=== PATIENT | male | born 1975 | race Hispanic/Latino ===

== ENCOUNTER 2018-01-22 15:21 | Emergency (ER) | payer SELFPAY ==
[2018-01-22] MEDS ORDERED: HYDROCODONE/APAP 10/325 TAB ONE (16:26)
--- NOTE | 2018-01-22 16:33 | RAD REPORT ---
EXAM DESCRIPTION: RAD - Foot Left 3 View - 01/22/2018 4:19 pm CLINICAL HISTORY: Left Foot pain and swelling FINDINGS: Soft tissue ulceration is suspected along the plantar aspect of the forefoot. No acute fracture or dislocation is seen. No acute bony destructive lesion is seen. The first phalanx has been resected. Chronic subluxation involves second and third phalanges
[2018-01-22 16:54] LABS: Absolute Lymphocytes (CBC) 1.6 K/uL (0.7-4.9); Absolute Monocytes 0.6 K/uL (0.1-1.3); Absolute Neutrophil 3.8 K/uL (1.8-8.0); Basophils % 0.7 % (0-1.3); Eosinophils % 1.6 % (0-4.4); Hematocrit 46.4 % (39.6-49.0); Lymphocytes % 26.6 % (15.3-44.8); MCH 32.3 pg (27.0-35.0); MCV 90.3 fL (80-100); MPV 8.7 fL (7.6-11.3); Monocytes % 9.6 % (3.3-12.3); RBC Red Blood Cell Count 5.14 M/uL (4.33-5.43)
[2018-01-22 17:20] LABS: Potassium 4.3 mmol/L (3.5-5.1)
[2018-01-22] MEDS ORDERED: CLINDAMYCIN 600MG/D5W 600 MG/50 ML BAG IV ONE (18:04)
[2018-01-22] MEDS ORDERED: NA CHLORIDE 0.9% 2,000 ML ONE (18:04)
--- NOTE | 2018-01-22 20:24 | ER ---
Nurse's Notes [facility] Name: Ej Jane Age: 43 yrs Sex: Male : 1975 Arrival Date: 01/22/2018 Time: 15:24 Bed 25 Private MD: None, None Diagnosis: Open wound of foot Presentation: 01/22 15:33 Presenting complaint: Patient states: "I've had a left foot wound since like mid-November aa5 but now I think it's getting infected and my left leg is starting to hurt". Transition of care: patient was not received from another setting of care. Onset of symptoms was 2017. Risk Assessment: Do you want to hurt yourself or someone else? Patient reports no desire to harm self or others. Initial Sepsis Screen: Does the patient meet any 2 criteria? No. Patient's initial sepsis screen is negative. Does the patient have a suspected source of infection? No. Patient's initial sepsis screen is negative. Care prior to arrival: None. 15:33 Method Of Arrival: Ambulatory aa5 15:33 Acuity: YOAV 3 aa5 Historical: - Allergies: 15:35 No Known Allergies; aa5 - Home Meds: 15:33 metformin 1,000 mg Oral tab daily [Active]; aa5 - PMHx: 15:33 Diabetes - NIDDM; aa5 - PSHx: 15:33 LEG SURG; aa5 15:33 L Great toe amputation; aa5 - Immunization history:: Adult Immunizations up to date. - Social history:: Smoking status: Patient uses tobacco products, denies chronic smoking, but will smoke occasionally. - Ebola Screening: : No symptoms or risks identified at this time. Screenin:14 Abuse screen: Denies threats or abuse. Denies injuries from another. Nutritional mg2 screening: No deficits noted. Tuberculosis screening: No symptoms or risk factors identified. Fall Risk IV access (20 points). Assessment: 15:45 General: Appears in no apparent distress. comfortable, well groomed, well developed, tl3 well nourished, Behavior is calm, cooperative, appropriate for age. Pain: Complains of pain in left foot and ball of left foot. Neuro: Level of Consciousness is awake, alert, obeys commands, Oriented to person, place, time, situation, Appropriate for age. Cardiovascular: Patient's skin is warm and dry. Respiratory: Airway is patent Respiratory effort is even, unlabored, Respiratory pattern is regular, symmetrical. GI: No signs and/or symptoms were reported involving the gastrointestinal system. : No signs and/or symptoms were reported regarding the genitourinary system. EENT: No signs and/or symptoms were reported regarding the EENT system. Derm: Decubitus located on left foot approximately 1.5 cm to 2.5 cm. 18:00 Reassessment: Patient appears in no apparent distress at this time. No changes from tl3 previously documented assessment. Patient and/or family updated on plan of care and expected duration. Pain level reassessed. Patient is alert, oriented x 3, equal unlabored respirations, skin warm/dry/pink. 19:42 Reassessment: Patient appears in no apparent distress at this time. No changes from tl3 previously documented assessment. Patient and/or family updated on plan of care and expected duration. Pain level reassessed. Patient is alert, oriented x 3, equal unlabored respirations, skin warm/dry/pink. 20:45 Reassessment: Patient appears in no apparent distress at this time. No changes from tl3 previously documented assessment. Patient and/or family updated on plan of care and expected duration. Pain level reassessed. Patient is alert, oriented x 3, equal unlabored respirations, skin warm/dry/pink. Vital Signs: 15:35 BP 128 / 84; Pulse 101; Resp 18 S; Temp 98.2(TE); Pulse Ox 97% on R/A; Weight 99.79 kg aa5 (R); Height 5 ft. 8 in. (172.72 cm) (R); Pain 8/10; 16:45 BP 126 / 80; Pulse 81; Resp 16; Pulse Ox 100% on R/A; tl3 19:45 BP 127 / 85; Pulse 82; Resp 18; Pulse Ox 96% on R/A; tl3 20:45 BP 122 / 81; Pulse 87; Resp 18; Pulse Ox 97% on R/A; tl3 15:35 Body Mass Index 33.45 (99.79 kg, 172.72 cm) aa5 ED Course: 15:24 Patient arrived in ED. mr 15:25 None, None is Private Physician. mr 15:32 Arm band placed on. aa5 15:35 Triage completed. aa5 15:38 Anita Montelongo FNP-C is [facility]. kb 15:38 Demetrio Arenas MD is Attending Physician. kb 16:14 Terri Arboleda, DANIEL is Primary Nurse. tl3 16:18 X-ray completed. Portable x-ray completed in exam room. Patient tolerated procedure az well. 16:20 Foot Left 3 View XRAY In Process Unspecified. EDMS 16:40 Patient has correct armband on for positive identification. Bed in low position. Call tl3 light in reach. Warm blanket given. 16:40 No provider procedures requiring assistance completed. Inserted saline lock: 20 gauge tl3 in left forearm, using aseptic technique. 20:45 IV discontinued, intact, bleeding controlled, No redness/swelling at site. Pressure tl3 dressing applied. Administered Medications: 16:39 Drug: [place] 10 mg-325 mg 1 tabs Route: PO; tl3 18:14 Follow up: Response: No adverse reaction; Marked relief of symptoms mg2 18:14 Drug: Clindamycin 600 mg Route: IVPB; Infused Over: 30 mins; Site: left antecubital; mg2 18:40 Follow up: IV Status: Completed infusion; IV Intake: 50ml tl3 18:46 Drug: NS 0.9% 1000 ml Route: IV; Rate: 1000 ml; Site: left antecubital; Delivery: tl3 Primary tubing; 19:46 Follow up: IV Status: Completed infusion; IV Intake: 1000ml tl3 18:46 Drug: NS 0.9% 1000 ml Route: IV; Rate: 1000 ml; Site: left antecubital; Delivery: tl3 Primary tubing; 19:46 Follow up: IV Status: Completed infusion; IV Intake: 1000ml tl3 Intake: 18:40 IV: 50ml; Total: 50ml. tl3 19:46 IV: 1000ml; Total: 1050ml. tl3 19:46 IV: 1000ml; Total: 2050ml. tl3 Outcome: 20:24 Discharge ordered by . kb 20:45 Discharged to home ambulatory. tl3 20:45 Condition: stable 20:45 Discharge instructions given to patient, Instructed on discharge instructions, follow up and referral plans. medication usage, Demonstrated understanding of instructions, follow-up care, medications, wound care, Prescriptions given X 2. 20:47 Patient left the ED. tl3 Addendum: 01/26/2018 10:00 Addendum: Culture Results: Positive wound culture. Bacteria is resistant to, has s s intermediate sensitivity, or is not tested against prescribed antibiotics. Report given to LEN for further evaluation and then to foster care worker for follow up with patient. Phone call Attempt #1 no answer left VM Certified letter sent to listed address for patient. Signatures: Dispatcher [employer] EDMS Anita Montelongo, LACEYC DIAMOND SORTER-Enedelia Cardenas mr TorresEricka, RN RN aa5 Makenna Thorpe RN RN ss Terri Arboleda, DANIEL RN tl3 Yakov Ibrahim, DANIEL SANCHEZ [facility] [place] Rosales Corrections: (The following items were deleted from the chart) 01/22 15:35 15:35 BP 128 / 84; Pulse 101bpm; Resp 18bpm; Spontaneous; Pulse Ox 97% RA; Temp 98.2F aa5 Temporal; 99.79 kg Reported; Height 5 ft. 8 in. Reported; BMI: 33.4; aa5
--- NOTE | 2018-01-22 20:25 | EDPHYS ---
Physician Documentation [facility] Name: Ej Jane Age: 43 yrs Sex: Male : 1975 Arrival Date: 01/22/2018 Time: 15:24 Bed 25 Private MD: None, None ED Physician Demetrio Arenas HPI: 01/22 16:20 This 43 yrs old Male presents to ER via Ambulatory with complaints of Wound kb Infection. 16:20 The complaints affect the left foot. kb 16:20 The patient presents with an injury, pain, that is acute, open wound. Context: The kb problem was sustained at work, resulted from the patient falling, the patient can fully bear weight, the patient is able to ambulate, without difficulty. Onset: The symptoms/episode began/occurred November 18, 2017. Modifying factors: The symptoms are alleviated by nothing, the symptoms are aggravated by nothing. Associated signs and symptoms: Pertinent positives: open wound to ball of left foot. Severity of symptoms: At their worst the symptoms were mild, moderate, in the emergency department the symptoms are unchanged. The patient has experienced a previous episode. The patient has not recently seen a physician. Historical: - Allergies: 15:35 No Known Allergies; aa5 - Home Meds: 15:33 metformin 1,000 mg Oral tab daily [Active]; aa5 - PMHx: 15:33 Diabetes - NIDDM; aa5 - PSHx: 15:33 LEG SURG; aa5 15:33 L Great toe amputation; aa5 - Immunization history:: Adult Immunizations up to date. - Social history:: Smoking status: Patient uses tobacco products, denies chronic smoking, but will smoke occasionally. - Ebola Screening: : No symptoms or risks identified at this time. ROS: 16:44 Constitutional: Negative for fever, chills, and weight loss, Cardiovascular: Negative kb for chest pain, palpitations, and edema, Respiratory: Negative for shortness of breath, cough, wheezing, and pleuritic chest pain, Abdomen/GI: Negative for abdominal pain, nausea, vomiting, diarrhea, and constipation, MS/Extremity: Negative for injury and deformity, Neuro: Negative for headache, weakness, numbness, tingling, and seizure. 16:44 Skin: Positive for ulceration, of the ball of left foot. Exam: 16:44 Constitutional: This is a well developed, well nourished patient who is awake, alert, kb and in no acute distress. Head/Face: Normocephalic, atraumatic. Chest/axilla: Normal chest wall appearance and motion. Nontender with no deformity. No lesions are appreciated. Cardiovascular: Regular rate and rhythm with a normal S1 and S2. No gallops, murmurs, or rubs. Normal PMI, no JVD. No pulse deficits. Respiratory: Lungs have equal breath sounds bilaterally, clear to auscultation and percussion. No rales, rhonchi or wheezes noted. No increased work of breathing, no retractions or nasal flaring. Abdomen/GI: Soft, non-tender, with normal bowel sounds. No distension or tympany. No guarding or rebound. No evidence of tenderness throughout. MS/ Extremity: Pulses equal, no cyanosis. Neurovascular intact. Full, normal range of motion. Neuro: Awake and alert, GCS 15, oriented to person, place, time, and situation. Cranial nerves II-XII grossly intact. Motor strength 5/5 in all extremities. Sensory grossly intact. Cerebellar exam normal. Normal gait. 16:44 Skin: lesion(s), noted, and can be described as ulcerated, located on the ball of left foot, size of dime. Vital Signs: 15:35 BP 128 / 84; Pulse 101; Resp 18 S; Temp 98.2(TE); Pulse Ox 97% on R/A; Weight 99.79 kg aa5 (R); Height 5 ft. 8 in. (172.72 cm) (R); Pain 8/10; 16:45 BP 126 / 80; Pulse 81; Resp 16; Pulse Ox 100% on R/A; tl3 19:45 BP 127 / 85; Pulse 82; Resp 18; Pulse Ox 96% on R/A; tl3 20:45 BP 122 / 81; Pulse 87; Resp 18; Pulse Ox 97% on R/A; tl3 15:35 Body Mass Index 33.45 (99.79 kg, 172.72 cm) aa5 MDM: 15:38 Patient medically screened. kb 16:45 Data reviewed: vital signs, nurses notes. Data interpreted: Pulse oximetry: on room air kb is 97 %. Interpretation: normal. 20:23 Counseling: I had a detailed discussion with the patient and/or guardian regarding: the kb historical points, exam findings, and any diagnostic results supporting the discharge/admit diagnosis, lab results, radiology results, the need for outpatient follow up, a family practitioner, to return to the emergency department if symptoms worsen or persist or if there are any questions or concerns that arise at home. ED course: Pt has appt with wound care . 01/22 15:47 Order name: CBC with Diff; Complete Time: 17:12 kb 01/22 15:47 Order name: Basic Metabolic Panel; Complete Time: 17:37 kb 01/22 15:47 Order name: Lactate; Complete Time: 17:12 kb 01/22 15:47 Order name: Wound Culture kb 01/22 15:47 Order name: Procalcitonin; Complete Time: 18:42 kb 01/22 17:45 Order name: Blood Culture Adult (2) 01/22 15:47 Order name: Foot Left 3 View XRAY; Complete Time: 16:35 kb 01/22 19:52 Order name: Glucose, Ancillary Testing; Complete Time: 19:53 EDMS 01/22 19:53 Order name: Lactate 01/22 20:22 Order name: Lactate Sepsis 2 HR Follow-up; Complete Time: 20:23 EDMS 01/22 15:47 Order name: IV Start; Complete Time: 16:40 kb Administered Medications: 16:39 Drug: [place] 10 mg-325 mg 1 tabs Route: PO; tl3 18:14 Follow up: Response: No adverse reaction; Marked relief of symptoms mg2 18:14 Drug: Clindamycin 600 mg Route: IVPB; Infused Over: 30 mins; Site: left antecubital; mg2 18:40 Follow up: IV Status: Completed infusion; IV Intake: 50ml tl3 18:46 Drug: NS 0.9% 1000 ml Route: IV; Rate: 1000 ml; Site: left antecubital; Delivery: tl3 Primary tubing; 19:46 Follow up: IV Status: Completed infusion; IV Intake: 1000ml tl3 18:46 Drug: NS 0.9% 1000 ml Route: IV; Rate: 1000 ml; Site: left antecubital; Delivery: tl3 Primary tubing; 19:46 Follow up: IV Status: Completed infusion; IV Intake: 1000ml tl3 Disposition: 01/23 06:57 Co-signature as Attending Physician, Demetrio RAY I agree with the assessment and tereso plan of care. Disposition: 01/22/18 20:24 Discharged to Home. Impression: Open wound of foot. - Condition is Stable. - Discharge Instructions: Wound Infection, [id number], Wound Care. - Prescriptions for Clindamycin HCl 300 mg Oral Capsule - take 1 capsule by ORAL route every 6 hours for 10 days; 40 capsule. Doxycycline Hyclate 100 mg Oral Tablet - take 1 tablet by ORAL route every 12 hours; 20 tablet. - Medication Reconciliation Form, Thank You Letter, Antibiotic Education, Prescription Opioid Use form. - Follow up: Emergency Department; When: As needed; Reason: Worsening of condition. Follow up: Private Physician; When: 2 - 3 days; Reason: Recheck today's complaints, Continuance of care, Re-evaluation by your physician. Signatures: Dispatcher [employer] EDAnita Bennett, DISPENSING LEAD-C DISPENSING LEAD-Ckb Demetrio Arenas MD MD cha Calderon, Audri, RN RN aa5 Terri Arboleda RN RN tl3 Yakov Ibrahim RN RN mg2 Corrections: (The following items were deleted from the chart) 01/22 20:47 20:24 01/22/2018 20:24 Discharged to Home. Impression: Open wound of foot. Condition is tl3 Stable. Forms are Medication Reconciliation Form, Thank You Letter, Antibiotic Education, Prescription Opioid Use. Follow up: Emergency Department; When: As needed; Reason: Worsening of condition. Follow up: Private Physician; When: 2 - 3 days; Reason: Recheck today's complaints, Continuance of care, Re-evaluation by your physician. kb
== END 2018-01-22 20:47 | disposition home or self-care (01) ==
LOC: ER 15:21
DX: S91.302A Unspecified open wound, left foot, initial encounter (principal); E11.9 Type 2 diabetes mellitus without complications; W19.XXXA Unspecified fall, initial encounter; Y93.9 Activity, unspecified; Y92.89 Other specified places as the place of occurrence of the external cause; Y99.8 Other external cause status
CPT/HCPCS: 36415; 80048; 82962; 83605; 84145; 85025; 87040; 87070; 87077; 87186; 87205; 96361; 96365; 99284; J7030

== ENCOUNTER 2018-03-19 19:19 | Inpatient (IN) | payer SELFPAY ==
[2018-03-19] MEDS ORDERED: NA CHLORIDE 0.9% 3,000 ML ONE (21:11)
[2018-03-19] MEDS ORDERED: VANCOMYCIN 1 GM/VIAL ONE (21:12)
[2018-03-19] MEDS ORDERED: NA CHLORIDE 0.9% 250 ML ONE (21:13)
--- NOTE | 2018-03-19 21:25 | RAD REPORT ---
EXAM DESCRIPTION: RAD - Foot Left 3 View - 03/19/2018 9:09 pm CLINICAL HISTORY: Left Foot pain status post fall FINDINGS: No acute fracture or dislocation is seen. . No bony destructive lesion is seen. No significant change since January exam
[2018-03-19 21:52] LABS: Absolute Lymphocytes (CBC) 1.2 K/uL (0.7-4.9); Absolute Neutrophil 5.1 K/uL (1.8-8.0); Basophils % 0.8 % (0-1.3); Eosinophils % 3.7 % (0-4.4); Hematocrit 40.3 % (39.6-49.0); Lymphocytes % 15.7 % (15.3-44.8); MCH 31.4 pg (27.0-35.0); MCV 90.4 fL (80-100); Monocytes % 13.7 % (3.3-12.3); RBC Red Blood Cell Count 4.46 M/uL (4.33-5.43)
[2018-03-19 22:00] LABS: Albumin 3.2 g/dL (3.4-5.0); Bilirubin Direct 0.3 mg/dL (0-0.2); Bilirubin Total 0.9 mg/dL (0.2-1.0); CKMB Creatine Kinase MB 1.1 ng/mL (0.3-3.6); Potassium 3.4 mmol/L (3.5-5.1); Protein, Total 7.4 g/dL (6.4-8.2)
--- NOTE | 2018-03-19 22:45 | EDPHYS ---
Physician Documentation [facility] Name: Ej Jane Age: 43 yrs Sex: Male : 1975 Arrival Date: 03/19/2018 Time: 19:20 Bed 15 Private MD: ED Physician Timoteo Guthrie HPI: 03/19 22:41 This 43 yrs old Male presents to ER via Ambulatory with complaints of Foot snw Pain - ulcer. 22:41 The patient presents with pain, that is acute, swelling, tenderness. The complaints snw affect the dorsum of left foot. Context: The problem was sustained at an unknown site, resulted from an unknown cause, the patient can partially bear weight, the patient is able to ambulate, previous plantar wound. Onset: The symptoms/episode began/occurred gradually, and became worse yesterday. Associated signs and symptoms: Pertinent positives: of the left foot with increased pain and pus drainage from wound. Severity of symptoms: At their worst the symptoms were moderate. The patient has experienced similar episodes in the past. The patient has not recently seen a physician. Historical: - Allergies: 20:05 No Known Allergies; kr2 - Home Meds: 20:05 metformin 1,000 mg Oral tab daily [Active]; kr2 - PMHx: 20:05 Diabetes - NIDDM; kr2 - PSHx: 20:05 Amputation of toes of left foot; knee surgery; kr2 - Immunization history:: Adult Immunizations up to date. - Social history:: Smoking status: Patient uses tobacco products, denies chronic smoking, but will smoke occasionally. - Ebola Screening: : No symptoms or risks identified at this time. ROS: 22:41 Constitutional: Negative for fever, chills, and weight loss, Eyes: Negative for injury, snw pain, redness, and discharge, ENT: Negative for injury, pain, and discharge, Neck: Negative for injury, pain, and swelling, Cardiovascular: Negative for chest pain, palpitations, and edema, Respiratory: Negative for shortness of breath, cough, wheezing, and pleuritic chest pain, Abdomen/GI: Negative for abdominal pain, nausea, vomiting, diarrhea, and constipation, Back: Negative for injury and pain, : Negative for injury, bleeding, discharge, and swelling, Skin: Negative for injury, rash, and discoloration, Neuro: Negative for headache, weakness, numbness, tingling, and seizure. 22:41 MS/extremity: Positive for decreased range of motion, swelling, tenderness, of the left foot. Exam: 22:39 Constitutional: This is a well developed, well nourished patient who is awake, alert, snw and in no acute distress. Head/Face: Normocephalic, atraumatic. Eyes: Pupils equal round and reactive to light, extra-ocular motions intact. Lids and lashes normal. Conjunctiva and sclera are non-icteric and not injected. Cornea within normal limits. Periorbital areas with no swelling, redness, or edema. ENT: Nares patent. No nasal discharge, no septal abnormalities noted. Tympanic membranes are normal and external auditory canals are clear. Oropharynx with no redness, swelling, or masses, exudates, or evidence of obstruction, uvula midline. Mucous membranes moist. Neck: Trachea midline, no thyromegaly or masses palpated, and no cervical lymphadenopathy. Supple, full range of motion without nuchal rigidity, or vertebral point tenderness. No Meningismus. Chest/axilla: Normal chest wall appearance and motion. Nontender with no deformity. No lesions are appreciated. Cardiovascular: Regular rate and rhythm with a normal S1 and S2. No gallops, murmurs, or rubs. Normal PMI, no JVD. No pulse deficits. Respiratory: Lungs have equal breath sounds bilaterally, clear to auscultation and percussion. No rales, rhonchi or wheezes noted. No increased work of breathing, no retractions or nasal flaring. Abdomen/GI: Soft, non-tender, with normal bowel sounds. No distension or tympany. No guarding or rebound. No evidence of tenderness throughout. Back: No spinal tenderness. No costovertebral tenderness. Full range of motion. Neuro: Awake and alert, GCS 15, oriented to person, place, time, and situation. Cranial nerves II-XII grossly intact. Motor strength 5/5 in all extremities. Sensory grossly intact. Cerebellar exam normal. Normal gait. Psych: Awake, alert, with orientation to person, place and time. Behavior, mood, and affect are within normal limits. 22:39 Musculoskeletal/extremity: Extremities: grossly normal except: noted in the ball of left foot: wound ulceration with clear discharge with skin thickening to plantar foot, redness to dorsum of left lesser toes and an area of erythema to anterior chin as well. 22:39 Skin: Appearance: normal except for affected area, cellulitis, that is moderate, on the lateral aspect of left toes and anterior [place]. Vital Signs: 20:06 BP 120 / 90; Pulse 78; Resp 19; Temp 98.5; Pulse Ox 99% on R/A; Weight 99.79 kg; Height kr2 5 ft. 8 in. (172.72 cm); Pain 10; 21:30 BP 114 / 75; Pulse 82; Resp 16 S; Pulse Ox 98% on R/A; cc3 22:15 BP 112 / 74; Pulse 79; Resp 16 S; Pulse Ox 98% on R/A; cc3 23:45 BP 147 / 99; Pulse 80; Resp 15 S; Pulse Ox 97% on R/A; cc3 03/20 00:32 BP 141 / 83; Pulse 83; Resp 17 S; Temp 98.1(O); Pulse Ox 97% on R/A; cc3 01:00 BP 138 / 87; Pulse 82; Resp 18 S; Pulse Ox 97% on R/A; cc3 03/19 20:06 Body Mass Index 33.45 (99.79 kg, 172.72 cm) kr2 MDM: 03/19 20:36 Patient medically screened. cp 22:32 Data reviewed: vital signs, nurses notes. Data interpreted: Pulse oximetry: on room air snw is 99 %. Interpretation: normal. Counseling: I had a detailed discussion with the patient and/or guardian regarding: the historical points, exam findings, and any diagnostic results supporting the discharge/admit diagnosis, the presence of at least one elevated blood pressure reading (>120/80) during this emergency department visit, lab results, radiology results, the need for further work-up and treatment in the hospital. Physician consultation: Nnamdi Holguin MD was called at 22:33, was contacted at 22:32, regarding admission, to the telemetry unit. 03/19 20:56 Order name: Basic Metabolic Panel; Complete Time: 22:04 snw 03/19 20:56 Order name: Blood Culture Adult (2) snw 03/19 20:56 Order name: CBC with Diff; Complete Time: 21:58 snw 03/19 20:56 Order name: Ckmb; Complete Time: 22:04 snw 03/19 20:56 Order name: CPK; Complete Time: 22:04 snw 03/19 20:56 Order name: Lactate; Complete Time: 22:04 snw 03/19 20:56 Order name: LFT's; Complete Time: 22:04 snw 03/19 20:56 Order name: Procalcitonin; Complete Time: 22:19 snw 03/19 20:56 Order name: Foot Left 3 View XRAY; Complete Time: 21:30 snw 03/19 23:42 Order name: Urine Dipstick--Ancillary (enter results) em 03/19 23:51 Order name: Urine Dipstick-Ancillary; Complete Time: 23:56 EDMS 03/19 20:46 Order name: FSBS; Complete Time: 20:49 snw 03/19 20:56 Order name: Cardiac monitoring; Complete Time: 21:42 snw 03/19 20:56 Order name: EKG - Nurse/Tech; Complete Time: 23:44 snw 03/19 20:56 Order name: IV Saline Lock - Large Bore; Complete Time: 21:43 snw 03/19 20:56 Order name: Labs collected and sent; Complete Time: 21:43 snw 03/19 20:56 Order name: O2 Per Protocol; Complete Time: 21:43 snw 03/19 20:56 Order name: O2 Sat Monitoring; Complete Time: 21:43 snw 03/19 20:56 Order name: Urine Dipstick-Ancillary (obtain specimen); Complete Time: 23:44 snw Administered Medications: 21:25 Drug: NS 0.9% (30 ml/kg) 30 ml/kg Route: IV; Rate: bolus; Site: right antecubital; cc3 03/20 00:30 Follow up: Response: No adverse reaction; IV Status: Completed infusion; IV Intake: cc3 2993.7ml 03/19 21:25 Drug: vancoMYCIN 1 grams Route: IVPB; Infused Over: 2 hrs; Site: right antecubital; cc3 23:45 Follow up: Response: No adverse reaction; IV Status: Completed infusion; IV Intake: cc3 250ml 22:55 Drug: fentaNYL (PF) 50 mcg Route: IVP; Site: right antecubital; cc3 23:30 Follow up: Response: No adverse reaction; Pain is decreased cc3 Point of Care Testing: Blood Glucose: 20:52 Blood Glucose: 299 mg/dL; cc3 Ranges: Critical Glucose Levels:Adult <50 mg/dl or >400 mg/dl <40 mg/dl or >180 mg/dl Disposition: 03/20 06:55 Co-signature as Attending Physician, Timoteo Guthrie MD I agree with the assessment and wa plan of care. Disposition: 03/19/18 22:44 Hospitalization ordered by Nnamdi Holguin for Inpatient Admission. Preliminary diagnosis are Personal history of diabetic foot ulcer, Cellulitis and acute lymphangitis of other parts of limb. - Bed requested for Telemetry/MedSurg (Inpatient). - Status is Inpatient Admission. cc3 - Condition is Stable. - Problem is an acute exacerbation. - Symptoms have worsened. UTI on Admission? No Signatures: Dispatcher [employer] EDMS Rebekah Llanos RN RN kl Therrien, Shelly, ORI-C LENS EDGE GRINDER MACHINE-Demetrio Gilmore PA PA cp Appiah, William, MD MD wa Reaves, Karey, RN RN kr2 Jeni Arroyo cc3 Corrections: (The following items were deleted from the chart) 00:41 03/19 22:44 Hospitalization Ordered by Nnamdi Holguin MD for Inpatient Admission. kl Preliminary diagnosis is Personal history of diabetic foot ulcer; Cellulitis and acute lymphangitis of other parts of limb. Bed requested for Telemetry/MedSurg (Inpatient). Status is Inpatient Admission. Condition is Stable. Problem is an acute exacerbation. Symptoms have worsened. UTI on Admission? No. snw 03/20 01:53 00:41 03/19/2018 22:44 Hospitalization Ordered by Nnamdi Holguin MD for Inpatient cc3 Admission. Preliminary diagnosis is Personal history of diabetic foot ulcer; Cellulitis and acute lymphangitis of other parts of limb. Bed requested for Telemetry/MedSurg (Inpatient). Status is Inpatient Admission. Condition is Stable. Problem is an acute exacerbation. Symptoms have worsened. UTI on Admission? No. kl
--- NOTE | 2018-03-19 22:45 | ER ---
Nurse's Notes [facility] Name: Ej Jane Age: 43 yrs Sex: Male : 1975 Arrival Date: 03/19/2018 Time: 19:20 Bed 15 Private MD: Diagnosis: Personal history of diabetic foot ulcer;Cellulitis and acute lymphangitis of other parts of limb Presentation: 03/19 20:02 Presenting complaint: Patient states: I noticed I have what I think is a diabetic ulcer kr2 on the bottom of my left foot and the top is red and swollen. I noticed it 2 days ago and pus has started coming out of it. I have also started having vomiting. Transition of care: patient was not received from another setting of care. Onset of symptoms was March 17, 2018. Risk Assessment: Do you want to hurt yourself or someone else? Patient reports no desire to harm self or others. Initial Sepsis Screen: Does the patient meet any 2 criteria? No. Patient's initial sepsis screen is negative. Does the patient have a suspected source of infection? Yes: Skin breakdown/wound. Care prior to arrival: None. 20:02 Method Of Arrival: Ambulatory kr2 20:02 Acuity: YOAV 3 kr2 Triage Assessment: 20:06 General: Appears in no apparent distress. uncomfortable, Behavior is cooperative, kr2 crying. Pain: Complains of pain in left foot Pain does not radiate. Pain currently is 10 out of 10 on a pain scale. Quality of pain is described as aching, stabbing, tender, Is continuous, Alleviated by rest, Aggravated by weight bearing. Historical: - Allergies: 20:05 No Known Allergies; kr2 - Home Meds: 20:05 metformin 1,000 mg Oral tab daily [Active]; kr2 - PMHx: 20:05 Diabetes - NIDDM; kr2 - PSHx: 20:05 Amputation of toes of left foot; knee surgery; kr2 - Immunization history:: Adult Immunizations up to date. - Social history:: Smoking status: Patient uses tobacco products, denies chronic smoking, but will smoke occasionally. - Ebola Screening: : No symptoms or risks identified at this time. Screenin:15 Abuse screen: Denies threats or abuse. Denies injuries from another. Nutritional cc3 screening: No deficits noted. Tuberculosis screening: No symptoms or risk factors identified. Fall Risk Ambulatory Aid- None/Bed Rest/Nurse Assist (0 pts). Gait- Normal/Bed Rest/Wheelchair (0 pts) Mental Status- Oriented to own ability (0 pts). Assessment: 20:30 Reassessment: Patient appears in no apparent distress at this time. Patient and/or cc3 family updated on plan of care and expected duration. Pain level reassessed. Patient is alert, oriented x 3, equal unlabored respirations, skin warm/dry/pink. 21:20 Reassessment: Patient appears in no apparent distress at this time. Patient and/or cc3 family updated on plan of care and expected duration. Pain level reassessed. Patient is alert, oriented x 3, equal unlabored respirations, skin warm/dry/pink. 22:50 Reassessment: Patient appears in no apparent distress at this time. Patient and/or cc3 family updated on plan of care and expected duration. Pain level reassessed. Patient is alert, oriented x 3, equal unlabored respirations, skin warm/dry/pink. 23:30 Reassessment: Patient appears in no apparent distress at this time. Patient and/or cc3 family updated on plan of care and expected duration. Pain level reassessed. Patient is alert, oriented x 3, equal unlabored respirations, skin warm/dry/pink. Dr. Andersen assessed the patient and plans for admission, waiting for admission orders. Patient denies pain at this time. Patient states feeling better. 03/20 00:25 Reassessment: Patient appears in no apparent distress at this time. Patient and/or cc3 family updated on plan of care and expected duration. Pain level reassessed. Patient is alert, oriented x 3, equal unlabored respirations, skin warm/dry/pink. 01:00 Reassessment: Patient appears in no apparent distress at this time. Patient and/or cc3 family updated on plan of care and expected duration. Pain level reassessed. Patient is alert, oriented x 3, equal unlabored respirations, skin warm/dry/pink. Room available in 228, report handed over to DANIEL Glover for continuity of care. Vital Signs: 03/19 20:06 BP 120 / 90; Pulse 78; Resp 19; Temp 98.5; Pulse Ox 99% on R/A; Weight 99.79 kg; Height kr2 5 ft. 8 in. (172.72 cm); Pain 10/; 21:30 BP 114 / 75; Pulse 82; Resp 16 S; Pulse Ox 98% on R/A; cc3 22:15 BP 112 / 74; Pulse 79; Resp 16 S; Pulse Ox 98% on R/A; cc3 23:45 BP 147 / 99; Pulse 80; Resp 15 S; Pulse Ox 97% on R/A; cc3 03/20 00:32 BP 141 / 83; Pulse 83; Resp 17 S; Temp 98.1(O); Pulse Ox 97% on R/A; cc3 01:00 BP 138 / 87; Pulse 82; Resp 18 S; Pulse Ox 97% on R/A; cc3 03/19 20:06 Body Mass Index 33.45 (99.79 kg, 172.72 cm) kr2 ED Course: 03/19 19:20 Patient arrived in ED. am2 20:04 Triage completed. kr2 20:13 Jeni Arroyo is Primary Nurse. cc3 20:15 Arm band placed on right wrist. cc3 20:15 Patient has correct armband on for positive identification. Placed in gown. Bed in low cc3 position. Call light in reach. Side rails up X 1. rebar worker on. Pulse ox on. NIBP on. 20:35 Demetrio Garcia PA is PHCP. cp 20:35 Timoteo Guthrie MD is Attending Physician. cp 20:45 Zuly East FNP-C is PHCP. snw 20:45 Timoteo Guthrie MD is Attending Physician. snw 21:08 Foot Left 3 View XRAY In Process Unspecified. EDMS 21:25 Inserted saline lock: 20 gauge in right antecubital area, using aseptic technique. cc3 Blood collected. 22:43 Nnamdi Holguin MD is Hospitalizing Provider. snw 03/20 01:00 No provider procedures requiring assistance completed. Patient admitted, IV remains in cc3 place. Administered Medications: 03/19 21:25 Drug: NS 0.9% (30 ml/kg) 30 ml/kg Route: IV; Rate: bolus; Site: right antecubital; cc3 03/20 00:30 Follow up: Response: No adverse reaction; IV Status: Completed infusion; IV Intake: cc3 2993.7ml 03/19 21:25 Drug: vancoMYCIN 1 grams Route: IVPB; Infused Over: 2 hrs; Site: right antecubital; cc3 23:45 Follow up: Response: No adverse reaction; IV Status: Completed infusion; IV Intake: cc3 250ml 22:55 Drug: fentaNYL (PF) 50 mcg Route: IVP; Site: right antecubital; cc3 23:30 Follow up: Response: No adverse reaction; Pain is decreased cc3 Point of Care Testing: Blood Glucose: 20:52 Blood Glucose: 299 mg/dL; cc3 Ranges: Intake: 23:45 IV: 250ml; Total: 250ml. cc3 03/20 00:30 IV: 2994ml; Total: 3244ml. cc3 Outcome: 03/19 22:44 Decision to Hospitalize by Provider. snw 03/20 01:00 Admitted to Med/surg accompanied by nurse, via wheelchair, room 228, with chart, Report cc3 called to DANIEL Glover Condition: stable Instructed on the need for admit, Demonstrated understanding of instructions. 01:53 Patient left the ED. cc3 Signatures: Dispatcher [employer] EDMS Zuly East, ORI-C [employer] PRINC[employer]AL SOLUTION SPECIALIST-Csnw Demetrio Garcia PA PA cp Moreno, Amanda am2 Reaves, Karey, RN RN Jeni Berg cc3 Corrections: (The following items were deleted from the chart) 03/19 19:46 19:44 Presenting complaint: Patient states: I have been having chest pain that started kr2 last night, it feels like a tight squeezing on the left side of my chest kr2 19:46 19:44 Transition of care: patient was not received from another setting of care. [place] [id number] 19:46 19:44 Onset of symptoms was March 18, 2018 [place] [id number] 19:46 19:44 Risk Assessment: Do you want to hurt yourself or someone else? Patient reports no kr2 desire to harm self or others. 2 19:46 19:44 Initial Sepsis Screen: Does the patient meet any 2 criteria? No. Patient's kr2 initial sepsis screen is negative. Does the patient have a suspected source of infection? No. Patient's initial sepsis screen is negative. 2 19:46 19:44 Care prior to arrival: None. kr2 kr2 19:46 19:44 Method Of Arrival: Ambulatory [place] [id number] 19:46 19:44 Acuity: YOAV 3 [place] [id number] 19:56 19:45 Triage completed. [place] [id number] 03/20 01:15 03/19 23:30 Reassessment: Patient appears in no apparent distress at this time. Patient cc3 and/or family updated on plan of care and expected duration. Pain level reassessed. Patient is alert, oriented x 3, equal unlabored respirations, skin warm/dry/pink. Patient denies pain at this time. Patient states feeling better. cc3
[2018-03-19] MEDS ORDERED: FENTANYL CITR 100 MCG/2 ML ONE (23:03)
[2018-03-19 23:51] LABS: Urine Blood NEGATIVE (NEG); Urine Glucose 2+ (NEG); Urine Protein NEGATIVE (NEG); Urine Specific Gravity 1.015 (1.005-1.030)
--- NOTE | 2018-03-20 00:13 | P.HP ---
Certification for Inpatient Patient admitted to: Inpatient With expected LOS: >2 Midnights Practitioner: I am a practitioner with admitting privileges, knowledge of patient current condition, hospital course, and medical plan of care. Services: Services provided to patient in accordance with Admission requirements found in Title 42 Section 412.3 of the Code of Federal Regulations Patient History Date of Service: 03/19/18 Reason for admission: Diabetic ulcer History of Present Illness: Mr Jane is a 43-year-old male with history of non-insulin diabetes mellitus , who start about November of this year with callous in the plantar area of his left foot. Over the time it was getting worse. About 2 months ago, he came to ER for evaluation, and this time he received 1 dose of IV doxycycline and was discharged with oral clindamycin. However the wound did not improve. He has been feeling more pain lately and noted that it was getting more swollen. Today he has had yellowish secretion coming out from the wound. He denied any fever or chills. Lab work remarkable for normal WBC count. X-ray foot showed no signs of osteomyelitis. Allergies No Known Drug Allergies Allergy (Unverified 09/07/14 22:58) Unknown No Known Allergies Allergy (Uncoded 01/10/16 03:06) Unknown - Past Medical/Surgical History -: Diabetes mellitus types 2 -: Toe amputation - Family History Family History: Reviewed- Non-Contributory - Social History Smoking Status: Current some day smoker Counseled patient to stop smoking for: less than 10 minutes Alcohol use: Yes CD- Drugs: No Place of Residence: Home Review of Systems 10-point ROS is otherwise unremarkable Physical Examination - Physical Exam General: Alert, In no apparent distress HEENT: Atraumatic, PERRLA, Mucous membr. moist/pink, EOMI, Sclerae nonicteric Neck: Supple, 2+ carotid pulse no bruit, No LAD, Without JVD or thyroid abnormality Respiratory: Clear to auscultation bilaterally, Normal air movement Cardiovascular: Regular rate/rhythm, Normal S1 S2 Gastrointestinal: Normal bowel sounds, No tenderness Musculoskeletal: No tenderness Integumentary: Skin breakdown, Diabetic ulcer (Left foot plantar area) Neurological: Normal speech, Normal strength at 5/5 x4 extr, Normal tone, Normal affect Lymphatics: No axilla or inguinal lymphadenopathy - Studies Laboratory Data (last 24 hrs) 03/19/18 21:25: WBC 7.6, Hgb 14.0, Hct 40.3, Plt Count 230 03/19/18 21:25: Sodium 134 L, Potassium 3.4 L, BUN 22 H, Creatinine 1.10, Glucose 307 H, Total Bilirubin 0.9, AST 11 L, ALT 26, Alkaline Phosphatase 74 Assessment and Plan - Problems (Diagnosis) (1) Diabetes with ulcer of foot Current Visit: Yes Status: Acute Qualifiers: Diabetes mellitus type: type 2 Diabetes mellitus halfway insulin use: without cotton dispatcher use Qualified Code(s): E11.621 - Type 2 diabetes mellitus with foot ulcer; L97.509 - Non-pressure chronic ulcer of other part of unspecified foot with unspecified severity (2) Diabetes mellitus Current Visit: Yes Status: Acute Qualifiers: Diabetes mellitus type: type 2 Diabetes mellitus cotton dispatcher insulin use: without halfway use Diabetes mellitus complication status: with unspecified complications Qualified Code(s): E11.8 - Type 2 diabetes mellitus with unspecified complications - Plan Patient will be admitted to the hospital due to diabetic wound infection. Will order empiric antibiotic treatment with vancomycin and Zosyn. Will consult surgery team for evaluation recommendation. Also consult wound care team for local care. Will check inflammatory markers and eventually ordered MRI of the foot to rule out osteomyelitis. - Advance Directives Does patient have a Living Will: No Does patient have a Durable POA for Healthcare: No - Code Status/Comfort Care Code Status Assessed: Yes Code Status: Full Code
[2018-03-20] MEDS ORDERED: ACETAMINOPHEN 500 MG TAB PO PRN (01:11)
[2018-03-20] MEDS ORDERED: ONDANSETRON 4 MG/2 ML VIAL IV PRN (01:11)
[2018-03-20] MEDS: NA CHLORIDE 0.9% 1,000 ML IV SCH ×3 (02:23→21:11)
[2018-03-20 02:35] VITALS: BMI 32.2
[2018-03-20 02:42] LABS: Urine Appearance CLEAR; Urine Bilirubin NEGATIVE (NEG); Urine Blood NEGATIVE (NEG); Urine Color YELLOW; Urine Glucose 3+ (NEG); Urine Protein TRACE (NEG); Urine Specific Gravity 1.025 (1.005-1.030)
[2018-03-20] MEDS ORDERED: TRAMADOL HCL 50 MG TAB PO PRN ×2 (02:55→11:23)
[2018-03-20 03:00] LABS: Urine Microscopic Reflex NO UMIC
[2018-03-20] MEDS ORDERED: VANCOMYCIN 1 GM in NA CHLORIDE 0.9% 250 ML IVPB ONE (04:00)
[2018-03-20] MEDS ORDERED: PIPER/TAZO/NS 3.375gm 3.375 GM/100 ML BAG ONE (04:08)
[2018-03-20] MEDS ORDERED: VANCOMYCIN 1 GM/250 ML BAG ONE (04:09)
[2018-03-20] MEDS: INSULIN -REGULAR HUMAN 50 UNIT/0.5 ML ML SQ SCH ×3 (06:00→18:00)
[2018-03-20] MEDS ORDERED: PIPER/TAZO/NS 3.375gm 3.375 GM/100 ML BAG IVPB SCH (06:00)
[2018-03-20 06:07] LABS: Absolute Lymphocytes (CBC) 1.6 K/uL (0.7-4.9); Absolute Monocytes 0.9 K/uL (0.1-1.3); Absolute Neutrophil 3.5 K/uL (1.8-8.0); Basophils % 0.6 % (0-1.3); Eosinophils % 4.8 % (0-4.4); Hematocrit 35.9 % (39.6-49.0); MCH 31.9 pg (27.0-35.0); MPV 8.1 fL (7.6-11.3); Monocytes % 14.4 % (3.3-12.3); RBC Red Blood Cell Count 4.04 M/uL (4.33-5.43)
[2018-03-20 06:09] LABS: BUN Blood Urea Nitrogen 16 mg/dL (7-18); Bicarbonate 27 mmol/L (21-32); Glucose Level 135 mg/dL (74-106); Potassium 3.5 mmol/L (3.5-5.1); Sodium Level 138 mmol/L (136-145)
[2018-03-20] MEDS ORDERED: POTASSIUM CL SA 10 MEQ TAB PO ONE (06:18)
[2018-03-20] MEDS ORDERED: INFLUENZA VACCINE (for 3y+) 0.5 ML DOSE IMVAC ONE (08:00)
[2018-03-20] MEDS ORDERED: VANCOMYCIN 1 GM in NA CHLORIDE 0.9% 500 ML IVPB SCH (09:00)
[2018-03-20] MEDS: PIPER/TAZO/NS 3.375gm 3.375 GM/100 ML BAG IVPB SCH ×2 (10:18→17:00)
[2018-03-20] MEDS: HYDROCODONE/APAP 7.5/325 MG TAB PO PRN ×2 (11:40→18:47)
--- NOTE | 2018-03-20 15:34 | P.PN ---
Subjective Date of Service: 03/20/18 Primary Care Provider: None; [facility] Chief Complaint: Diabetic ulcer Subjective: Improving Physical Examination - Vital Signs Temperature: 97.0 F Blood Pressure: 123/81 Pulse: 75 Respirations: 17 Pulse Ox (%): 98 - Physical Exam General: Alert, In no apparent distress, Oriented x3, Cooperative HEENT: Atraumatic Neck: Supple Respiratory: Clear to auscultation bilaterally, Normal air movement Cardiovascular: Normal pulses, Regular rate/rhythm Gastrointestinal: Normal bowel sounds, Soft and benign, Non-distended, No tenderness, No masses, No rebound, No guarding Integumentary: Other (Left foot ulcer. No exudate noted.) - Studies Laboratory Data (last 24 hrs) 03/19/18 21:25: WBC 7.6, Hgb 14.0, Hct 40.3, Plt Count 230 03/19/18 21:25: Sodium 134 L, Potassium 3.4 L, BUN 22 H, Creatinine 1.10, Glucose 307 H, Total Bilirubin 0.9, AST 11 L, ALT 26, Alkaline Phosphatase 74 Assessment & Plan Discharge Plan: Home Plan to discharge in: 48 Hours Physician Review Additional Text: Impression: Diabetic left foot ulcer with cellulitis with history of left great toe amputation Diabetes mellitus type 2, non-insulin dependent Obesity, BMI 32 Plan: Diabetic left foot ulcer with cellulitis with history of left great toe amputation: Will continue with IV antibiotic therapy. No osteomyelitis identified. Continue with wound care. Spoke with surgery. Will keep the patient NPO after midnight as the patient may require debridement tomorrow. Diabetes mellitus type 2, non-insulin dependent: Continue with sliding scale. Will monitor closely. Obesity, BMI 32: Continue with lifestyle modification education. Time Spent Managing Pts Care (In Minutes): 55
[2018-03-20] MEDS: VANCOMYCIN 1.75 GM in NA CHLORIDE 0.9% 500 ML IVPB SCH (17:00)
[2018-03-20] MEDS: METFORMIN HCL 500 MG TAB PO SCH (17:01)
[2018-03-20] MEDS ORDERED: HOME MED 1 EA UNK (Metformin Hcl [Glucophage] 1,000 MG) PO SCH (21:00)
--- NOTE | 2018-03-20 21:16 | CON ---
Date of Consultation: 03/20/2018 Diagnoses: Left foot cellulitis, infected diabetic ulcer. History Of Present Illness: This is the case of a 43-year-old patient having diabetes for the last 5 years, found to have a lump and a callus on the left foot plantar region several months ago. This d eveloped into an area of an ulcer with a foul smelling and cellulitis present over that area. He rodriguez s not recall any trauma. He does not have diabetic shoes. He say he take some p.o. medication. Past Medical History: [id number] diabetes mellitus. Surgeries: Include toes amputation. Allergies: NONE. Social History: He is smokes. He was advised and consulted to stop smoking. He drinks alcohol just occasionally. Review of Systems: Ten points otherwise unremarkable. Physical Examination: General: The patient is awake and alert. HEENT: Pupils are equal and reactive, anicteric. Neck: Supple. Chest: Clear. Heart: S1, S2. Abdomen: Soft and depressible. No guarding, rebound, or peritoneal signs. Musculoskeletal: Over the left foot plantar region the patient has an infected diabetic ulcer. It i s about 4 x 4 cm in size with the undermining present, . No crepitus. Dorsalis pedis puls es still bilateral present with no cyanosis of the toe. Still have sensations of the bilateral foot. Laboratory Data: Blood work shows WBC count of 6.3 with hemoglobin of 12.9, glucose 135. Left foot x-ray interpreted by Dr. Joseph as no acute fracture or dislocation. Assessment: This is a 43-year-old patient with an infected diabetic ulcer on the left foot. The pat ient needs debridement with benefits, alternatives, and risks including, but not limited to infection , bleeding, damage to adjacent structures, anesthesia complication, nonhealing wound, KS, and even de ath. He also understands the importance of and he was counseled about stop smoking, diabetic shoes, diabetes control, diet change, weight loss. He understands. He will require wound care. HM/MODL Voice ID: [id number] Report ID: [id number]
--- NOTE | 2018-03-20 22:12 | EKG ---
Test Date: 2018-03-19 Test Time: 23:10:49 Precipitation Equipment Tender: FABIÁN MEASUREMENT RESULTS: Intervals: Rate: 81 WA: 142 QRSD: 94 QT: 376 QTc: 436 [place]: P: 12 WA: 142 QRS: 2 T: 13 INTERPRETIVE STATEMENTS: Normal sinus rhythm Normal ECG No previous ECG available for comparison Electronically Signed On 03-20-18 22:11:32 CDT by Shaq Sam
[2018-03-21] MEDS: PIPER/TAZO/NS 3.375gm 3.375 GM/100 ML BAG IVPB SCH ×2 (00:12→09:34)
[2018-03-21] MEDS: VANCOMYCIN 1.75 GM in NA CHLORIDE 0.9% 500 ML IVPB SCH (04:05)
[2018-03-21] MEDS: NA CHLORIDE 0.9% 1,000 ML IV SCH (04:23)
[2018-03-21] MEDS: INSULIN -REGULAR HUMAN 50 UNIT/0.5 ML ML SQ SCH ×2 (06:00)
[2018-03-21 06:38] LABS: Absolute Lymphocytes (CBC) 1.8 K/uL (0.7-4.9); Absolute Monocytes 0.9 K/uL (0.1-1.3); Absolute Neutrophil 3.7 K/uL (1.8-8.0); Basophils % 0.9 % (0-1.3); Eosinophils % 5.7 % (0-4.4); Hematocrit 41.1 % (39.6-49.0); Lymphocytes % 26.5 % (15.3-44.8); MCH 32.1 pg (27.0-35.0); MCV 89.3 fL (80-100); MPV 7.6 fL (7.6-11.3); Monocytes % 12.6 % (3.3-12.3)
[2018-03-21 06:52] LABS: BUN Blood Urea Nitrogen 10 mg/dL (7-18); Bicarbonate 31 mmol/L (21-32); Glucose Level 123 mg/dL (74-106); Magnesium 1.7 mg/dL (1.8-2.4); Potassium 4.5 mmol/L (3.5-5.1); Sodium Level 139 mmol/L (136-145)
[2018-03-21] MEDS ORDERED: PROPOFOL 200 MG/20 ML VIAL IV ONE (07:01)
[2018-03-21] MEDS ORDERED: FENTANYL CITR 250 MCG/5 ML ONE (07:01)
[2018-03-21] MEDS ORDERED: LIDOCAINE 1% MPF 2 ML AMPULE ONE (07:02)
[2018-03-21] MEDS ORDERED: ONDANSETRON HCL 40 MG/20 ML VIAL ONE (07:02)
[2018-03-21] MEDS ORDERED: MIDAZOLAM HCL 2 MG/2 ML INJ ONE (07:05)
[2018-03-21] MEDS ORDERED: BUPIVACA 0.5%/EPI 0.0005%/PF 30 ML VIAL ONE (07:19)
[2018-03-21] MEDS: METFORMIN HCL 500 MG TAB PO SCH (08:00)
--- NOTE | 2018-03-21 08:16 | P.BOP ---
Preoperative diagnosis: left foot necrotic infected diabetic ulcer Postoperative diagnosis: same Primary procedure: Excisional debridement of left foot necrotic infected diabetic ulcer 4x4cm Estimated blood loss: <5cc Specimen: culture Findings: see dictation Anesthesia: General Complications: None Transferred to: Recovery Room Condition: Good
[2018-03-21] MEDS ORDERED: EPHEDRINE SULF 50 MG/10 ML SYR ONE (08:19)
[2018-03-21 08:46] VITALS: BP 141/85; TEMP 97.4; O2SAT 99
--- NOTE | 2018-03-21 08:59 | P.DS ---
Admission Date: 03/19/18 Discharge Date: 03/21/18 Primary Care Provider: None; Podiatry-Kt Walden Disposition: ROUTINE DISCHARGE Discharge Condition: GOOD Reason for Admission: Diabetic ulcer Consultations: Surgery-Dr. Rojo Procedures: Xray: CLINICAL HISTORY: Left Foot pain status post fall FINDINGS: No acute fracture or dislocation is seen.. No bony destructive lesion is seen. No significant change since January exam Surgery: Excisional debridement of left foot necrotic ulcer, 4 x 4 cm Medical Problem List: Diabetic left necrotic foot ulcer with cellulitis with history of left great toe amputation, status post excisional debridement of ulcer Diabetes mellitus type 2, non-insulin dependent, uncontrolled-A1c 8.4 Hypertension Obesity, BMI 32 Brief History of Present Illness: 43-year-old male presented emergency room with pain, swelling and ulcer to the left foot. This all started about 4 months ago when he developed a callus. He was seen in the ER about 1-2 months ago. He was given antibiotic therapy at that time. This had not improved. In the ER he was evaluated. Patient was admitted for further treatment. Hospital Course: Patient found to have left diabetic necrotic foot ulcer with cellulitis. Patient has history of left great toe amputation. Patient was seen and evaluated by surgery. X-ray shows no evidence of osteomyelitis. White count remained within normal range. Pro calcitonin negative. Patient had excisional debridement of the ulcer by surgery. At discharge patient will continue with wound care including wet to dry dressings with normal saline daily. Patient will be sent home on Bactrim DS 1 pill twice daily and doxycycline 100 mg 1 pill twice daily for 10 days. Patient will [facility] of next week to continue his care. Patient will be provided a surgical shoe. He is to limit weight-bearing to the lower extremity. Patient will be provided crutches to help with this if needed. Better diabetic control is recommended. At discharge he will also be given a limited supply of tramadol 50 mg 1 pill 3 times a day as needed for pain. Patient will be started on Neurontin 100 mg 1 pill twice daily as needed for neuropathic pain. Patient has diabetes type 2, non insulin dependent. A1c 8.4. Patient needs better control. At discharge he will continue with metformin 1000 mg 1 pill twice daily. Glimepiride 1 mg once daily also added. Patient will need to continue with a diabetic controlled diet. Recommendation is to maintain blood sugars less than 140 fasting and less than 200 after meals. Further adjustment can be done by his PCP. Patient to establish care with a PCP in the area so that better control of diabetes can be obtained. Patient had mild elevation in blood pressure. Patient likely has underlying hypertension. Patient will be started on low-dose BVI-czmchkxjl-aeyzbsywiv 2.5 mg 1 pill daily. Recommendation is to maintain blood pressures less 150/80. Patient will also be started on aspirin 81 mg daily. Further adjustment can be done by his PCP. Patient with obesity. BMI 32. Recommendation to continue with lifestyle modification education. Vital Signs/Physical Exam: Temp Pulse Resp BP Pulse Ox 97.4 F 87 16 141/85 H 97 03/21/18 08:40 03/21/18 08:40 03/21/18 08:40 03/21/18 08:40 03/21/18 04:00 General: Alert, In no apparent distress, Oriented x3, Cooperative HEENT: Atraumatic, Mucous membr. moist/pink Neck: Supple Respiratory: Clear to auscultation bilaterally, Normal air movement Cardiovascular: Normal pulses, Regular rate/rhythm Gastrointestinal: Normal bowel sounds, Soft and benign, Non-distended, No tenderness, No masses, No rebound, No guarding Musculoskeletal: No tenderness, No warmth Integumentary: Other (Left foot bandaged.) Neurological: Normal speech, Normal strength at 5/5 x4 extr, Normal tone, Normal affect Laboratory Data at Discharge: WBC 6.8 K/uL (4.3-10.9) 03/21/18 06:09 Hgb 14.8 g/dL (13.6-17.9) 03/21/18 06:09 Hct 41.1 % (39.6-49.0) 03/21/18 06:09 Plt Count 284 K/uL (152-406) D 03/21/18 06:09 Sodium 139 mmol/L (136-145) 03/21/18 06:09 Potassium 4.5 mmol/L (3.5-5.1) 03/21/18 06:09 BUN 10 mg/dL (7-18) 03/21/18 06:09 Creatinine 0.90 mg/dL (0.55-1.3) 03/21/18 06:09 Glucose 123 mg/dL (74-106) H 03/21/18 06:09 Magnesium 1.7 mg/dL (1.8-2.4) L 03/21/18 06:09 Total Bilirubin 0.9 mg/dL (0.2-1.0) 03/19/18 21:25 AST 11 U/L (15-37) L 03/19/18 21:25 ALT 26 U/L (12-78) 03/19/18 21:25 Alkaline Phosphatase 74 U/L (45-117) 03/19/18 21:25 Home Medications: Aspirin [Aspirin EC 81 MG] 81 mg PO DAILY #90 tablet. 03/21/18 Doxycycline Hyclate 100 mg PO BID #20 tablet 03/21/18 Gabapentin [Neurontin*] 100 mg PO BID PRN #30 cap 03/21/18 Glimepiride 1 mg PO DAILY #30 tablet 03/21/18 Lisinopril [Zestril] 2.5 mg PO DAILY #30 tablet 03/21/18 Metformin HCl [Glucophage] 1,000 mg PO BID #60 tablet 03/21/18 Sulfamethoxazole/Trimethoprim [Bactrim Ds Tablet] 1 each PO BID #20 tablet 03/21 traMADol HCL [Ultram*] 50 mg PO TID PRN #15 tab 03/21/18 New Medications: Aspirin [Aspirin EC 81 MG] 81 mg PO DAILY #90 tablet. Doxycycline Hyclate 100 mg PO BID #20 tablet Gabapentin [Neurontin*] 100 mg PO BID PRN #30 cap PRN Reason: Pain Glimepiride 1 mg PO DAILY #30 tablet Lisinopril [Zestril] 2.5 mg PO DAILY #30 tablet Metformin HCl [Glucophage] 1,000 mg PO BID #60 tablet Sulfamethoxazole/Trimethoprim [Bactrim Ds Tablet] 1 each PO BID #20 tablet traMADol HCL [Ultram*] 50 mg PO TID PRN #15 tab PRN Reason: Pain Patient Discharge Instructions: 1. Patient will need to establish care with a PCP to follow up this hospitalization and continue his care. 2. Patient found to have left diabetic necrotic foot ulcer with cellulitis. Patient has history of left great toe amputation. Patient was seen and evaluated by surgery. X- ray shows no evidence of osteomyelitis. White count remained within normal range. Pro calcitonin negative. Patient had excisional debridement of the ulcer by surgery. At discharge patient will continue with wound care including wet to dry dressings with normal saline daily. Patient will be sent home on Bactrim DS 1 pill twice daily and doxycycline 100 mg 1 pill twice daily for 10 days. Patient will follow up with [facility] of next week to continue his care. Patient will be provided a surgical shoe. He is to limit weight-bearing to the lower extremity. Patient will be provided crutches to help with this if needed. Better diabetic control is recommended. At discharge he will also be given a limited supply of tramadol 50 mg 1 pill 3 times a day as needed for pain. Patient will be started on Neurontin 100 mg 1 pill twice daily as needed for neuropathic pain. 3. Patient has diabetes type 2, non insulin dependent. A1c 8.4. Patient needs better control. At discharge he will continue with metformin 1000 mg 1 pill twice daily. Glimepiride 1 mg once daily also added. Patient will need to continue with a diabetic controlled diet. Recommendation is to maintain blood sugars less than 140 fasting and less than 200 after meals. Further adjustment can be done by his PCP. Patient to establish care with a PCP in the area so that better control of diabetes can be obtained. 4. Patient had mild elevation in blood pressure. Patient likely has underlying hypertension. Patient will be started on low-dose OJH-pfetpyvdw-mysrjdtxnl 2.5 mg 1 pill daily. Recommendation is to maintain blood pressures less 150/80. Patient will also be started on aspirin 81 mg daily. Further adjustment can be done by his PCP. 5. Patient with obesity. BMI 32. Recommendation to continue with lifestyle modification education. Diet: ADA Activity: Touch-down Time spent managing pt's care (in minutes): 55
[2018-03-21] MEDS: HYDROCODONE/APAP 7.5/325 MG TAB PO PRN (09:55)
--- NOTE | 2018-03-21 13:18 | OP ---
Date of Procedure: 03/21/2018 Surgeon: Phan Rojo MD Preoperative Diagnosis: Necrotic diabetic ulcer, left foot. Postoperative Diagnosis: Necrotic diabetic ulcer, left foot. Procedure: Excisional debridement of the necrotic left foot infected diabetic ulcer, 4 x 4 cm. Anesthesia: General plus local. Indications For Procedure: This is the case of a 43-year-old patient, who comes to us with above elsa gnosis. Fully explained the benefits, alternatives, and risks of the excisional debridement, which i nclude but are not limited to infection, bleeding, damage to adjacent structures, anesthesia complica tion, nonhealing wound, NM, and even . He also understands this may not relieve any symptoms. He might need more than one surgical intervention. He understood, signed a consent. He also underst ands the importance of diabetes control, off-loading diabetic shoes, wound care, and compliance with the primary doctor medications for antibiotics. He understood. Procedure In Detail: The patient was brought to the operating room, placed in supine position. A ti me-out was called. The left foot was prepped and draped in a sterile fashion. Using a sharp knife a nd 11-blade, we proceeded to do sharp debridement of the necrotic ulcer. It is about 4 x 4 [address] It g oes all the way down to muscle. The area was irrigated. Loculations were explored and opened. Necr otic tissue was removed. Cultures were obtained. Then, we proceeded to pack the area with Nu Gauze quarter of an inch. The patient tolerated the procedure well. The patient was sent to Recovery in stable condition. Sponge count and instrument count were correct. JAKE/МАРИЯ Voice ID: [id number] Report ID: [id number]
== END 2018-03-21 11:19 | disposition home or self-care (01) | DRG 982 ==
LOC: ER 19:19 → ERHOLD 23:02 → 2ND 03-20 01:32
PROVIDERS: ADMIT Internal Medicine; ATTEND Family Medicine
PROC: 0KBW3ZZ Excision of Left Foot Muscle, Percutaneous Approach (ICD-10-PCS; principal; 2018-03-21 07:30)
DX: E11.621 Type 2 diabetes mellitus with foot ulcer (principal); L03.116 Cellulitis of left lower limb; L97.523 Non-pressure chronic ulcer of other part of left foot with necrosis of muscle; E11.65 Type 2 diabetes mellitus with hyperglycemia; E11.628 Type 2 diabetes mellitus with other skin complications; Z79.84 Long term (current) use of oral hypoglycemic drugs; I10 Essential (primary) hypertension; E66.9 Obesity, unspecified; Z68.32 Body mass index [BMI] 32.0-32.9, adult; F17.210 Nicotine dependence, cigarettes, uncomplicated; Z89.412 Acquired absence of left great toe
CPT/HCPCS: 36415; 80048; 80076; 81003; 82550; 82553; 82962; 83036; 83605; 83735; 84145; 85025; 85652; 86140; 87040; 87070; 87075; 87077; 87186; 87205; 88304; 93005; 96365; 96366; 96368; 96375; 99285; J2001; J2250; J2405; J2543; J2704; J3010; J3370; J7030

== ENCOUNTER 2018-04-22 11:05 | Inpatient (IN) | payer SELFPAY ==
--- NOTE | 2018-04-22 11:43 | RAD REPORT ---
EXAM DESCRIPTION: RAD - Chest Single View - 04/22/2018 11:38 am CLINICAL HISTORY: Preop chest examination, left foot wound debridement pending COMPARISON: None. TECHNIQUE: AP portable chest image was obtained 1129 hours . FINDINGS: Lungs are clear. Heart and vasculature are normal. No measurable pleural effusion and no p neumothorax. No acute bony abnormality seen. No acute aortic findings suspected. IMPRESSION: No acute cardiopulmonary process.
--- NOTE | 2018-04-22 11:51 | RAD REPORT ---
EXAM DESCRIPTION: RAD - Foot Left 3 View - 04/22/2018 11:38 am CLINICAL HISTORY: Soft tissue swelling, open wound on the foot COMPARISON: Left foot March 19, 2018, left foot January 2018 FINDINGS: First toe has been resected. No acute finding in the first metatarsal head. The second- fi fth metatarsals are also without an acute or destructive component. There is bone loss along the base of the second proximal phalanx with medial subluxation of the second proximal phalanx relative to th e second metatarsal head. This is a stable pattern. Destruction of bone at this site is not suspected . Second distal phalanx is absent. Bone loss changes are present in the third proximal phalanx. This appears to have progressed since Oc . No air or foreign body in the soft tissues. IMPRESSION: Bone loss in the third proximal phalanx has progressed from March 19 imaging and is emery spicious for active osteomyelitis. Bone loss at the base of the second proximal phalanx with medial subluxation appears chronic. No acti ve bone loss at this site. No air or foreign body seen in the soft tissues.
[2018-04-22 12:01] LABS: Absolute Lymphocytes (CBC) 1.3 K/uL (0.7-4.9); Absolute Monocytes 1.3 K/uL (0.1-1.3); Absolute Neutrophil 6.8 K/uL (1.8-8.0); Basophils % 0.7 % (0-1.3); Eosinophils % 2.7 % (0-4.4); Hematocrit 38.9 % (39.6-49.0); Lymphocytes % 13.4 % (15.3-44.8); MCV 89.2 fL (80-100); MPV 7.6 fL (7.6-11.3); Monocytes % 13.4 % (3.3-12.3); RBC Red Blood Cell Count 4.36 M/uL (4.33-5.43)
[2018-04-22] MEDS ORDERED: ONDANSETRON 4 MG/2 ML VIAL ONE (12:02)
[2018-04-22] MEDS ORDERED: PIPER/TAZO/NS 3.375gm 3.375 GM/100 ML BAG ONE (12:02)
[2018-04-22] MEDS ORDERED: VANCOMYCIN 1 GM/250 ML BAG ONE (12:02)
[2018-04-22] MEDS ORDERED: MORPHINE 4 MG/ML SYR ONE (12:02)
[2018-04-22] MEDS ORDERED: NA CHLORIDE 0.9% 1,000 ML ONE (12:02)
--- NOTE | 2018-04-22 12:11 | ER ---
Nurse's Notes [facility] Name: Ej Jane Age: 43 yrs Sex: Male : 1975 Arrival Date: 04/22/2018 Time: 11:08 Bed 17 Private MD: Diagnosis: Cellulitis and acute lymphangitis of other parts of limb-left foot and lower extremity;Type 1 diabetes mellitus;Osteomyelitis-left foot Presentation: 04/22 11:25 Presenting complaint: Patient states: SENT FROM DR CAMARENA FOR ADMIT 2/2 LEFT FOOT bp WOUND. Transition of care: patient was not received from another setting of care. Onset of symptoms is unknown. Risk Assessment: Do you want to hurt yourself or someone else? Patient reports no desire to harm self or others. Initial Sepsis Screen: Does the patient meet any 2 criteria? No. Patient's initial sepsis screen is negative. Does the patient have a suspected source of infection? No. Patient's initial sepsis screen is negative. Care prior to arrival: None. 11:25 Method Of Arrival: Wheelchair bp 11:25 Acuity: YOAV 3 bp Triage Assessment: 11:26 General: Appears in no apparent distress. uncomfortable, Behavior is calm, cooperative, bp appropriate for age. Pain: Complains of pain in left foot. EENT: No deficits noted. Neuro: Level of Consciousness is awake, alert, obeys commands, Oriented to person, place, time, situation, Appropriate for age. Cardiovascular: No deficits noted. Respiratory: Airway is patent Respiratory effort is even, unlabored, Respiratory pattern is regular, symmetrical. GI: No signs and/or symptoms were reported involving the gastrointestinal system. : No signs and/or symptoms were reported regarding the genitourinary system. Derm: Wound noted left foot. Musculoskeletal: Circulation, motion, and sensation intact. Range of motion: intact in all extremities, Swelling present in left foot. Historical: - Allergies: 11: No Known Allergies; bp - Home Meds: : metformin 1,000 mg Oral tab 2 times per day [Active]; bp - PMHx: 11: Diabetes - NIDDM; bp - PSHx: 11:26 LEFT GREAT TOE AMPUTATION; bp - Immunization history:: Adult Immunizations up to date. - Social history:: Smoking status: Patient/guardian denies using tobacco. - Ebola Screening: : Patient negative for fever greater than or equal to 101.5 degrees Fahrenheit, and additional compatible Ebola Virus Disease symptoms Patient denies exposure to infectious person Patient denies travel to an Ebola-affected area in the 21 days before illness onset No symptoms or risks identified at this time. Screenin:28 Abuse screen: Denies threats or abuse. Denies injuries from another. Nutritional bp screening: No deficits noted. Tuberculosis screening: No symptoms or risk factors identified. Fall Risk None identified. Assessment: 11:28 General: SEE TRIAGE NOTE. bp Vital Signs: 11:26 BP 116 / 80; Pulse 93; Resp 20; Temp 98; Pulse Ox 99% ; Weight 95.71 kg; Height 5 ft. 8 bp in. (172.72 cm); 12:30 BP 113 / 79; Pulse 90; Resp 14; Pulse Ox 99% ; bp 13:30 BP 117 / 66; Pulse 87; Resp 14; Pulse Ox 100% ; bp 14:30 BP 127 / 81; Pulse 83; Resp 16; Pulse Ox 100% ; bp 11:26 Body Mass Index 32.08 (95.71 kg, 172.72 cm) bp ED Course: 11:08 Patient arrived in ED. tw3 11:15 Doyle George, DANIEL is Primary Nurse. bp 11:16 Demetrio Arenas MD is Attending Physician. tereso 11:26 Triage completed. bp 11:26 Arm band placed on. bp 11:28 Patient has correct armband on for positive identification. Placed in gown. Bed in low bp position. Call light in reach. Side rails up X2. 11:33 X-ray completed. Portable x-ray completed in exam room. Patient tolerated procedure ka well. 11:37 XRAY Chest (1 view) In Process Unspecified. EDMS 11:37 Foot Left 3 View In Process Unspecified. EDMS 11:40 Inserted saline lock: 18 gauge in right antecubital area, using aseptic technique. bp Blood collected. 11:40 EKG done, by qc lab technician. reviewed by Demetrio Arenas MD. vh 12:09 Robert Loja MD is Hospitalizing Provider. tereso Administered Medications: 11:40 Drug: NS 0.9% 1000 ml Route: IV; Rate: 125 ml/hr; Site: right antecubital; bp 11:40 Drug: Zosyn 3.375 grams Route: IVPB; Infused Over: 60 mins; Site: right antecubital; bp 12:47 Follow up: IV Status: Completed infusion; IV Intake: 100ml bp 11:40 Drug: Zofran 4 mg Route: IVP; Site: right antecubital; bp 12:48 Follow up: Response: Nausea is decreased bp 12:06 Drug: morphine 4 mg Route: IVP; Site: right antecubital; bp 12:47 Follow up: Response: Pain is decreased bp 12:47 Drug: vancoMYCIN 1 grams Route: IVPB; Infused Over: 2 hrs; Site: right antecubital; bp Intake: 12:47 IV: 100ml; Total: 100ml. bp Outcome: 12:11 Decision to Hospitalize by Provider. tereso 14:49 Admitted to Med/surg via stretcher, room 407, with chart, Report called to 4TH FLOOR bp 15:19 Patient left the ED. iw Signatures: Dispatcher [employer] EDDemetrio Goldsmith MD MD cha Williams, Irene, RN RN Sary Ty Katelyn ka Wade, Tia 3 Doyle George, RN RN bp
--- NOTE | 2018-04-22 12:11 | EDPHYS ---
Physician Documentation [facility] Name: Ej Jane Age: 43 yrs Sex: Male : 1975 Arrival Date: 04/22/2018 Time: 11:08 Bed 17 Private MD: JEANNIE Physician Demetrio Arenas HPI: 04/22 12:07 This 43 yrs old Male presents to ER via Wheelchair with complaints of Wound tereso Infection. Historical: - Allergies: 11: No Known Allergies; bp - Home Meds: 11: metformin 1,000 mg Oral tab 2 times per day [Active]; bp - PMHx: 11: Diabetes - NIDDM; bp - PSHx: 11:26 LEFT GREAT TOE AMPUTATION; bp - Immunization history:: Adult Immunizations up to date. - Social history:: Smoking status: Patient/guardian denies using tobacco. - Ebola Screening: : Patient negative for fever greater than or equal to 101.5 degrees Fahrenheit, and additional compatible Ebola Virus Disease symptoms Patient denies exposure to infectious person Patient denies travel to an Ebola-affected area in the 21 days before illness onset No symptoms or risks identified at this time. ROS: 12:07 Constitutional: Negative for fever, chills, and weight loss, Eyes: Negative for injury, tereso pain, redness, and discharge, ENT: Negative for injury, pain, and discharge, Neck: Negative for injury, pain, and swelling, Cardiovascular: Negative for chest pain, palpitations, and edema, Respiratory: Negative for shortness of breath, cough, wheezing, and pleuritic chest pain, Abdomen/GI: Negative for abdominal pain, nausea, vomiting, diarrhea, and constipation, Back: Negative for injury and pain, : Negative for injury, bleeding, discharge, and swelling, Neuro: Negative for headache, weakness, numbness, tingling, and seizure, Psych: Negative for depression, anxiety, suicide ideation, homicidal ideation, and hallucinations, Allergy/Immunology: Negative for hives, rash, and allergies, Endocrine: Negative for neck swelling, polydipsia, polyuria, polyphagia, and marked weight changes, Hematologic/Lymphatic: Negative for swollen nodes, abnormal bleeding, and unusual bruising. 12:07 MS/extremity: Positive for decreased range of motion, pain, swelling, tenderness, of the lateral aspect of left calf, lateral aspect of left foot, left [place] and dorsum of left foot. Exam: 12:07 Constitutional: This is a well developed, well nourished patient who is awake, alert, tereso and in no acute distress. Head/Face: Normocephalic, atraumatic. Eyes: Pupils equal round and reactive to light, extra-ocular motions intact. Lids and lashes normal. Conjunctiva and sclera are non-icteric and not injected. Cornea within normal limits. Periorbital areas with no swelling, redness, or edema. ENT: Nares patent. No nasal discharge, no septal abnormalities noted. Tympanic membranes are normal and external auditory canals are clear. Oropharynx with no redness, swelling, or masses, exudates, or evidence of obstruction, uvula midline. Mucous membranes moist. Neck: Trachea midline, no thyromegaly or masses palpated, and no cervical lymphadenopathy. Supple, full range of motion without nuchal rigidity, or vertebral point tenderness. No Meningismus. Chest/axilla: Normal chest wall appearance and motion. Nontender with no deformity. No lesions are appreciated. Cardiovascular: Regular rate and rhythm with a normal S1 and S2. No gallops, murmurs, or rubs. Normal PMI, no JVD. No pulse deficits. Respiratory: Lungs have equal breath sounds bilaterally, clear to auscultation and percussion. No rales, rhonchi or wheezes noted. No increased work of breathing, no retractions or nasal flaring. Abdomen/GI: Soft, non-tender, with normal bowel sounds. No distension or tympany. No guarding or rebound. No evidence of tenderness throughout. Back: No spinal tenderness. No costovertebral tenderness. Full range of motion. Male : Normal genitalia with no discharge or lesions. Neuro: Awake and alert, GCS 15, oriented to person, place, time, and situation. Cranial nerves II-XII grossly intact. Motor strength 5/5 in all extremities. Sensory grossly intact. Cerebellar exam normal. Normal gait. Psych: Awake, alert, with orientation to person, place and time. Behavior, mood, and affect are within normal limits. 12:07 Skin: Appearance: Color: erythematous, Temperature: warm, hot, Moisture: normal moisture, petechiae, not noted, swelling. Vital Signs: 11:26 BP 116 / 80; Pulse 93; Resp 20; Temp 98; Pulse Ox 99% ; Weight 95.71 kg; Height 5 ft. 8 bp in. (172.72 cm); 12:30 BP 113 / 79; Pulse 90; Resp 14; Pulse Ox 99% ; bp 13:30 BP 117 / 66; Pulse 87; Resp 14; Pulse Ox 100% ; bp 14:30 BP 127 / 81; Pulse 83; Resp 16; Pulse Ox 100% ; bp 11:26 Body Mass Index 32.08 (95.71 kg, 172.72 cm) bp MDM: 11:16 Patient medically screened. [facility] 12:09 Data reviewed: vital signs, nurses notes, lab test result(s), EKG, radiologic studies, tereso plain films. 04/22 11:18 Order name: Basic Metabolic Panel; Complete Time: 13:09 [facility] 04/22 11:18 Order name: CBC with Diff; Complete Time: 13:09 [facility] 04/22 11:18 Order name: LFT's; Complete Time: 13:09 [facility] 04/22 11:18 Order name: Magnesium; Complete Time: 13:09 [facility] 04/22 11:18 Order name: NT PRO-BNP; Complete Time: 13:09 [facility] 04/22 11:18 Order name: PT-INR; Complete Time: 13:09 [facility] 04/22 11:18 Order name: Troponin (emerg Dept Use Only); Complete Time: 13:09 [facility] 04/22 11:18 Order name: Lipase; Complete Time: 13:09 [facility] 04/22 11:18 Order name: Sed Rate; Complete Time: 13:09 [facility] 04/22 11:18 Order name: Urine Culture [facility] 04/22 11:18 Order name: Type And Screen; Complete Time: 13:09 [facility] 04/22 11:20 Order name: Lactate; Complete Time: 13:09 [facility] 04/22 11:20 Order name: Blood Culture Adult (2) [facility] 04/22 11:20 Order name: Procalcitonin [facility] 04/22 11:18 Order name: XRAY Chest (1 view); Complete Time: 12:07 [facility] 04/22 11:32 Order name: Foot Left 3 View; Complete Time: 12:07 [facility] 04/22 12:52 Order name: ABO/RH no charge; Complete Time: 13:09 [facility] 04/22 14:43 Order name: CBC with Automated Diff [facility] 04/22 14:43 Order name: CBC with Automated Diff [facility] 04/22 14:43 Order name: CBC with Automated Diff EDMS 04/22 14:43 Order name: CBC with Automated Diff EDMS 04/22 14:43 Order name: CBC with Automated Diff EDMS 04/22 14:43 Order name: Comprehensive Metabolic Panel EDMS 04/22 14:43 Order name: Comprehensive Metabolic Panel EDMS 04/22 14:43 Order name: Comprehensive Metabolic Panel EDMS 04/22 14:43 Order name: Comprehensive Metabolic Panel EDMS 04/22 14:43 Order name: Comprehensive Metabolic Panel EDMS 04/22 11:18 Order name: EKG; Complete Time: 11:20 [facility] 04/22 11:18 Order name: Cardiac monitoring; Complete Time: 11:30 [facility] 04/22 11:18 Order name: EKG - Nurse/Tech; Complete Time: 11:30 [facility] 04/22 11:18 Order name: IV Saline Lock; Complete Time: 12:05 [facility] 04/22 11:18 Order name: Labs collected and sent; Complete Time: 12:05 [facility] 04/22 11:18 Order name: O2 Per Protocol; Complete Time: 11:30 [facility] 04/22 11:18 Order name: O2 Sat Monitoring; Complete Time: 11:30 [facility] 04/22 14:43 Order name: CONS Physician Consult [facility]MI 04/22 14:43 Order name: NPO EDMS Administered Medications: 11:40 Drug: NS 0.9% 1000 ml Route: IV; Rate: 125 ml/hr; Site: right antecubital; bp 11:40 Drug: Zosyn 3.375 grams Route: IVPB; Infused Over: 60 mins; Site: right antecubital; bp 12:47 Follow up: IV Status: Completed infusion; IV Intake: 100ml bp 11:40 Drug: Zofran 4 mg Route: IVP; Site: right antecubital; bp 12:48 Follow up: Response: Nausea is decreased bp 12:06 Drug: morphine 4 mg Route: IVP; Site: right antecubital; bp 12:47 Follow up: Response: Pain is decreased bp 12:47 Drug: vancoMYCIN 1 grams Route: IVPB; Infused Over: 2 hrs; Site: right antecubital; bp Disposition: 04/22/18 12:11 Hospitalization ordered by Robert Loja for Inpatient Admission. Preliminary diagnosis are Cellulitis and acute lymphangitis of other parts of limb - left foot and lower extremity, Type 1 diabetes mellitus, Osteomyelitis - left foot. - Bed requested for Telemetry/MedSurg (Inpatient). - Status is Inpatient Admission. iw - Condition is Fair. - Problem is new. - Symptoms have improved. UTI on Admission? No Signatures: Dispatcher [employer] EDMI Demetrio Arenas MD MD cha Williams, Irene, RN RN iw Doyle George RN RN Marce Weeks Corrections: (The following items were deleted from the chart) 11:32 11:21 Foot Right 3 View+RAD.RAD.BRZ ordered. [facility] 12:11 12:11 Hospitalization Ordered by Robert Loja MD for Inpatient Admission. Preliminary tereso diagnosis is Cellulitis and acute lymphangitis of other parts of limb - left foot and lower extremity; Type 1 diabetes mellitus. Bed requested for Telemetry/MedSurg (Inpatient). Status is Inpatient Admission. Condition is Fair. Problem is new. Symptoms have improved. UTI on Admission? No. tereso 14:34 12:11 04/22/2018 12:11 Hospitalization Ordered by Robert Loja MD for Inpatient eb Admission. Preliminary diagnosis is Cellulitis and acute lymphangitis of other parts of limb - left foot and lower extremity; Type 1 diabetes mellitus; Osteomyelitis - left foot. Bed requested for Telemetry/MedSurg (Inpatient). Status is Inpatient Admission. Condition is Fair. Problem is new. Symptoms have improved. UTI on Admission? No. tereso 15:19 14:34 04/22/2018 12:11 Hospitalization Ordered by Robert Loja MD for Inpatient iw Admission. Preliminary diagnosis is Cellulitis and acute lymphangitis of other parts of limb - left foot and lower extremity; Type 1 diabetes mellitus; Osteomyelitis - left foot. Bed requested for Telemetry/MedSurg (Inpatient). Status is Inpatient Admission. Condition is Fair. Problem is new. Symptoms have improved. UTI on Admission? No. eb
[2018-04-22 12:12] LABS: Protime INR 1.14
[2018-04-22 12:22] LABS: ALT/SGPT 21 U/L (12-78); AST/SGOT 14 U/L (15-37); Albumin 3.4 g/dL (3.4-5.0); Alkaline Phosphatase 80 U/L (45-117); BUN Blood Urea Nitrogen 15 mg/dL (7-18); Bicarbonate 29 mmol/L (21-32); Bilirubin Direct 0.4 mg/dL (0-0.2); Bilirubin Total 1.3 mg/dL (0.2-1.0); Glucose Level 201 mg/dL (74-106); Lipase 288 U/L (73-393); Magnesium 1.6 mg/dL (1.8-2.4); NT PRO-BNP 270 pg/mL (<125); Potassium 3.5 mmol/L (3.5-5.1); Protein, Total 8.3 g/dL (6.4-8.2); Sodium Level 131 mmol/L (136-145); Troponin (Emerg Dept Use Only) < 0.02 ng/mL (0.0-0.045)
[2018-04-22] MEDS ORDERED: ONDANSETRON 4 MG/2 ML VIAL IV PRN (14:40)
[2018-04-22] MEDS ORDERED: Magnesium Sulfate 2gm IVPB 2 G/50 ML BAG IV ONE (14:49)
[2018-04-22] MEDS ORDERED: MAGNESIUM SULFATE 1 gm IVPB 1 GM/100 ML BAG IV ONE (15:00)
[2018-04-22] MEDS ORDERED: POTASSIUM CL SA 10 MEQ TAB PO ONE (16:00)
[2018-04-22] MEDS: ENOXAPARIN 40 MG/0.4 ML SQ SCH (16:06)
[2018-04-22 16:33] LABS: Urine Appearance CLEAR; Urine Blood NEGATIVE (NEG); Urine Color DK YELLOW; Urine Glucose TRACE (NEG); Urine Protein 1+ (NEG); Urine Specific Gravity 1.025 (1.005-1.030)
[2018-04-22 16:43] LABS: Urine Bilirubin NEGATIVE (NEG)
[2018-04-22 16:44] LABS: Urine Microscopic Reflex ORDER UMIC
[2018-04-22 16:54] LABS: Urine Bacteria <20 /HPF (NONE SEEN); Urine Culture Reflex Order REFLEXED; Urine Mucus 1+ /HPF (NONE SEEN); Urine RBC NONE SEEN /HPF (NONE SEEN)
[2018-04-22] MEDS: MORPHINE 4 MG/ML SYR IV PRN ×2 (18:04→22:20)
[2018-04-22 18:50] VITALS: BMI 32.1
--- NOTE | 2018-04-22 22:20 | P.HP ---
Certification for Inpatient Patient admitted to: Inpatient With expected LOS: <2 Midnights Practitioner: I am a practitioner with admitting privileges, knowledge of patient current condition, hospital course, and medical plan of care. Services: Services provided to patient in accordance with Admission requirements found in Title 42 Section 412.3 of the Code of Federal Regulations Patient History Date of Service: 04/23/18 Reason for admission: Cellulitis History of Present Illness: This is a 43 year old male with hx of DM, prior toe amputation sent from wound care center for ascending cellulitis. Patient with a history of a necrotic diabetic ulcer on left foot that was recently debrided here and was being followed at wound care center. Per patient, he was packing his wound on saturday after which he noted his left foot to be getting more red and swollen along with sharp, shooting pain which has been progressively worsening. He went to his wound care appointment today and was told by them to come to ED for possible IV antibiotics. Patient denies any fevers, chills, chest pain, shortness of breath, GI complaints of abdominal complaints. Allergies No Known Drug Allergies Allergy (Intermediate, Verified 04/22/18 16:42) Itching Home Medications: Aspirin [Aspirin EC 81 MG] 81 mg PO DAILY #90 tablet. 03/21/18 RX: Gabapentin [Neurontin*] 100 mg PO BID PRN #30 cap 03/21/18 RX: Lisinopril [Zestril] 2.5 mg PO DAILY #30 tablet 03/21/18 RX: Metformin HCl [Glucophage] 1,000 mg PO BID #60 tablet 03/21/18 RX: traMADol HCL [Ultram*] 50 mg PO TID PRN #15 tab 03/21/18 - Past Medical/Surgical History Diabetic: Yes -: Diabetes mellitus types 2 -: Toe amputation left great toe and second tip toe - Family History parents -: Heart disease, Diabetes - Social History Smoking Status: Current some day smoker Alcohol use: Yes CD- Drugs: No Caffeine use: Yes Place of Residence: Home Review of Systems General: As per HPI, Unremarkable Eyes: Unremarkable ENT: Unremarkable Respiratory: Unremarkable Cardiovascular: Unremarkable Gastrointestinal: Unremarkable Genitourinary: Unremarkable Musculoskeletal: Unremarkable Integumentary: Unremarkable Neurological: Unremarkable Lymphatics: Unremarkable Physical Examination - Vital Signs Temperature: 97.5 F Blood Pressure: 117/71 Pulse: 87 Respirations: 20 Pulse Ox (%): 98 - Physical Exam General: Alert, In no apparent distress, Oriented x3 HEENT: Atraumatic, PERRLA, Mucous membr. moist/pink, EOMI, Sclerae nonicteric Neck: Supple, 2+ carotid pulse no bruit, No LAD, Without JVD or thyroid abnormality Respiratory: Clear to auscultation bilaterally, Normal air movement Cardiovascular: Regular rate/rhythm, Normal S1 S2 Gastrointestinal: Normal bowel sounds, No tenderness Musculoskeletal: Swelling, Erythema, Tenderness, Other (Open wound noted on the left foot) Integumentary: No rashes Neurological: Normal gait, Normal speech, Normal strength at 5/5 x4 extr, Normal tone, Normal affect Lymphatics: No axilla or inguinal lymphadenopathy - Studies Laboratory Data (last 24 hrs) 04/22/18 11:43: PT 13.5 H, INR 1.14 04/22/18 11:43: WBC 9.8, Hgb 13.9, Hct 38.9 L, Plt Count 269 04/22/18 11:43: Sodium 131 L, Potassium 3.5, BUN 15, Creatinine 1.20, Glucose 201 H, Magnesium 1.6 L, Total Bilirubin 1.3 H, AST 14 L, ALT 21, Alkaline Phosphatase 80, Lipase 288 Assessment and Plan - Plan This is a 43 year old male with: Left foot cellulitis Continue IV antibiotics Possible osteomyelitis Foot x-ray with possible bone involvement. MRI foot ordered, pending. Continue IV antibiotics. Dr. oRjo, general surgery consult. Diabetic ulcer on left foot, s/p debridement Hx of left great toe amputation DM2, non insulin dependent, uncontrolled He will need strict blood sugar control Accu-checks with mild correction scale insulin. Will adjust as needed Essential hypertension Will restart home medications DVT prophylaxis: Lovenox GI prophylaxis: Not needed Diet: Regular Disposition: Pending symptomatic treatment. Continue IV antibiotics, MRI of the foot ordered, pending. - Advance Directives Does patient have a Living Will: No Does patient have a Durable POA for Healthcare: No Physician Review: Patient Assessed, Agree with Above Assessment and Plan Time Spent Managing Pts Care (In Minutes): 45
[2018-04-22] MEDS ORDERED: GLUCAGON 1 MG/VIAL IM PRN (22:23)
[2018-04-22] MEDS ORDERED: D50W 25 GM/50 ML SYRINGE IV PRN (22:23)
--- NOTE | 2018-04-22 22:41 | EKG ---
Test Date: 2018-04-22 Test Time: 11:40:18 Store Manager: EDGAR MEASUREMENT RESULTS: Intervals: Rate: 94 WY: 138 QRSD: 80 QT: 336 QTc: 420 [place]: P: 24 WY: 138 QRS: 10 T: 33 INTERPRETIVE STATEMENTS: Normal sinus rhythm Normal ECG Compared to ECG 03/19/2018 23:10:49 No significant changes Electronically Signed On 04-22-18 22:41:16 MANAGER FAMILY by Shaq Sam
[2018-04-23] MEDS: ACETAMINOPHEN 500 MG TAB PO PRN ×2 (02:39→10:05)
[2018-04-23 06:47] LABS: Absolute Lymphocytes (CBC) 1.6 K/uL (0.7-4.9); Absolute Monocytes 1.2 K/uL (0.1-1.3); Basophils % 0.6 % (0-1.3); Eosinophils % 5.1 % (0-4.4); Hematocrit 37.5 % (39.6-49.0); Lymphocytes % 21.6 % (15.3-44.8); MCH 31.9 pg (27.0-35.0); MCV 89.9 fL (80-100); MPV 7.5 fL (7.6-11.3); Monocytes % 16.5 % (3.3-12.3); RBC Red Blood Cell Count 4.17 M/uL (4.33-5.43)
[2018-04-23 07:06] LABS: Albumin 2.9 g/dL (3.4-5.0); Bilirubin Total 1.2 mg/dL (0.2-1.0); Potassium 4.3 mmol/L (3.5-5.1); Protein, Total 7.2 g/dL (6.4-8.2)
[2018-04-23] MEDS: INSULIN -REGULAR HUMAN 50 UNIT/0.5 ML ML SQ SCH ×4 (07:30→20:24)
[2018-04-23] MEDS: MORPHINE 4 MG/ML SYR IV PRN ×3 (08:04→20:23)
[2018-04-23] MEDS ORDERED: POTASSIUM CL SA 10 MEQ TAB PO SCH (09:00)
[2018-04-23] MEDS: ENOXAPARIN 40 MG/0.4 ML SQ SCH (09:50)
[2018-04-23] MEDS ORDERED: VANCOMYCIN/NS 1 gm 1 GM/250 ML BAG IVPB SCH (10:00)
--- NOTE | 2018-04-23 10:04 | RAD REPORT ---
EXAM DESCRIPTION: MRI - Foot Left W/Wo Cont - 04/23/2018 9:13 am CLINICAL HISTORY: Open wound, plantar surface of the foot COMPARISON: Left foot plain films April 22 TECHNIQUE: Multiplanar imaging of the left foot performed using T1 weighted, T2 fat saturation, T2 S TIR and T1 fat saturation sequencing. Post-contrast T1 fat saturation imaging was performed. A 17 mil liliter MultiHance contrast volume was utilized. FINDINGS: Hypointense T1 and hyperintense T2 signal is present in the third metatarsal head. There i s heterogeneous abnormal signal in the small remnant of the third proximal phalanx base. There is hyp ointense T1 and hyperintense T2 signal in the distal remnant of the third proximal phalanx. The third middle and distal phalanges show normal MR characteristics. Chronic signal is present in the second proximal phalanx. No acute or suspicious marrow pattern in the second metatarsal head or second proxi mal phalanx. First toe is absent. A 3 x 2 centimeter fluid collection is present along the dorsal margin of the foot adjacent to the di stal third metatarsal and extending distally to the midportion of the third middle phalanx. There is enhancing tissue that surrounds this fluid collection. The third metatarsal head and third proximal p halanx show enhancement after contrast. On the plantar surface near the third MTP joint there is moises atous/inflammatory tissue present that enhances. No drainable fluid collection along the plantar surf vianey of the foot. IMPRESSION: Osteomyelitis changes are identifiable in the third metatarsal head and in the remnant o f the third proximal phalanx. A 3 x 2 centimeter walled-off fluid collection is present on the dorsal surface of the foot. This spa ns the distal third metatarsal to the third middle phalanx. Infectious/inflammatory tissue along the plantar surface of the foot near the third MTP joint. No marina inable fluid collection at this site.
[2018-04-23] MEDS: VANCOMYCIN 1.75 GM in NA CHLORIDE 0.9% 500 ML IVPB SCH ×2 (11:29→22:18)
[2018-04-23] MEDS: HYDROCODONE/APAP 5/325 MG TAB PO PRN ×2 (16:13→22:17)
--- NOTE | 2018-04-23 18:37 | P.PN ---
Subjective Date of Service: 04/23/18 Chief Complaint: Cellulitis Subjective: No new changes, No C/O voiced Patient seen and examined at bedside. No family at bedside. Chart reviewed and case discussed with nursing staff. Reports improved pain though still having pain Review of Systems As noted Physical Examination - Vital Signs Temperature: 97.5 F Blood Pressure: 117/71 Pulse: 87 Respirations: 20 Pulse Ox (%): 98 - Physical Exam General: Alert, In no apparent distress, Oriented x3 HEENT: Atraumatic, PERRLA, EOMI Neck: Supple, JVD not distended Respiratory: Clear to auscultation bilaterally, Normal air movement Cardiovascular: Regular rate/rhythm, Normal S1 S2 Gastrointestinal: Normal bowel sounds, No tenderness Musculoskeletal: Other Integumentary: Tenderness/swelling, Erythema, Warmth, Diabetic ulcer, Other Neurological: Normal speech, Normal tone, Normal affect Lymphatics: No axilla or inguinal lymphadenopathy Assessment And Plan - Plan This is a 43 year old male with: Left foot cellulitis Continue IV antibiotics Possible osteomyelitis Foot x-ray with possible bone involvement. MRI foot ordered, pending. Continue IV antibiotics. Dr. Rojo, general surgery consult. Diabetic ulcer on left foot, s/p debridement Hx of left great toe amputation DM2, non insulin dependent, uncontrolled He will need strict blood sugar control Accu-checks with mild correction scale insulin. Will adjust as needed Essential hypertension Will restart home medications DVT prophylaxis: Lovenox GI prophylaxis: Not needed Diet: Regular Disposition: Pending symptomatic treatment. Continue IV antibiotics, MRI of the foot ordered, pending. Physician Review: Patient Assessed, Agree with Above Assessment and Plan Time Spent Managing PTS Care (In Minutes): 35
[2018-04-24] MEDS: MORPHINE 4 MG/ML SYR IV PRN ×3 (02:32→20:31)
[2018-04-24] MEDS: HYDROCODONE/APAP 5/325 MG TAB PO PRN ×3 (04:26→17:29)
[2018-04-24 05:31] LABS: ALT/SGPT 25 U/L (12-78); AST/SGOT 14 U/L (15-37); Albumin 2.8 g/dL (3.4-5.0); Alkaline Phosphatase 72 U/L (45-117); BUN Blood Urea Nitrogen 13 mg/dL (7-18); Bicarbonate 30 mmol/L (21-32); Bilirubin Total 0.7 mg/dL (0.2-1.0); Glucose Level 201 mg/dL (74-106); Potassium 4.1 mmol/L (3.5-5.1); Protein, Total 7.2 g/dL (6.4-8.2); Sodium Level 132 mmol/L (136-145)
[2018-04-24 05:58] LABS: Absolute Lymphocytes (CBC) 1.4 K/uL (0.7-4.9); Absolute Monocytes 0.7 K/uL (0.1-1.3); Absolute Neutrophil 3.4 K/uL (1.8-8.0); Basophils % 0.8 % (0-1.3); Eosinophils % 5.5 % (0-4.4); Hematocrit 36.9 % (39.6-49.0); Lymphocytes % 23.3 % (15.3-44.8); MCH 31.7 pg (27.0-35.0); MCV 89.3 fL (80-100); MPV 7.8 fL (7.6-11.3); Monocytes % 12.1 % (3.3-12.3); RBC Red Blood Cell Count 4.13 M/uL (4.33-5.43)
[2018-04-24] MEDS: INSULIN -REGULAR HUMAN 50 UNIT/0.5 ML ML SQ SCH ×4 (07:30→20:54)
[2018-04-24] MEDS: ENOXAPARIN 40 MG/0.4 ML SQ SCH (09:28)
[2018-04-24] MEDS: ACETAMINOPHEN 500 MG TAB PO PRN (09:28)
[2018-04-24] MEDS: VANCOMYCIN 1.75 GM in NA CHLORIDE 0.9% 500 ML IVPB SCH ×2 (10:37→22:16)
--- NOTE | 2018-04-24 18:40 | P.PN ---
Subjective Date of Service: 04/24/18 Chief Complaint: Cellulitis Subjective: No new changes, No C/O voiced, Improving Patient seen and examined at bedside. No family at bedside. Chart reviewed and case discussed with nursing staff. Reports improved pain Review of Systems As noted Physical Examination - Vital Signs Temperature: 97.8 F Blood Pressure: 107/74 Pulse: 80 Respirations: 18 Pulse Ox (%): 99 - Physical Exam General: Alert, In no apparent distress, Oriented x3 HEENT: Atraumatic, PERRLA, EOMI Neck: Supple, JVD not distended Respiratory: Clear to auscultation bilaterally, Normal air movement Cardiovascular: Regular rate/rhythm, Normal S1 S2 Gastrointestinal: Normal bowel sounds, No tenderness Musculoskeletal: Tenderness, Other Integumentary: Rash(es), Skin breakdown, Skin lesion, Erythema, Diabetic ulcer Neurological: Normal speech, Normal tone, Normal affect Lymphatics: No axilla or inguinal lymphadenopathy - Studies Microbiology Data (last 24 hrs): 04/22/18 11:18 Clean Catch Urine [place] Count - Final 04/22/18 11:18 Clean Catch Urine - Final Assessment And Plan - Plan This is a 43 year old male with: Left foot cellulitis Continue IV antibiotics Possible osteomyelitis Foot x-ray with possible bone involvement. MRI foot ordered, with active osteomyelitis Continue IV antibiotics. Dr. Rojo, general surgery consult. Will continue wound care with wet-to- dry dressings Diabetic ulcer on left foot, s/p debridement Hx of left great toe amputation DM2, non insulin dependent, uncontrolled He will need strict blood sugar control Accu-checks with mild correction scale insulin. Will adjust as needed Essential hypertension Will restart home medications DVT prophylaxis: Lovenox GI prophylaxis: Not needed Diet: Regular Disposition: Pending symptomatic treatment. Pending setup of IV antibiotics as outpatient. He will need at least 4 weeks of IV antibiotics. Physician Review: Patient Assessed, Agree with Above Assessment and Plan Time Spent Managing PTS Care (In Minutes): 35
[2018-04-25] MEDS: HYDROCODONE/APAP 5/325 MG TAB PO PRN ×3 (00:45→23:27)
[2018-04-25] MEDS: ACETAMINOPHEN 500 MG TAB PO PRN (03:48)
[2018-04-25 06:16] LABS: Absolute Lymphocytes (CBC) 1.4 K/uL (0.7-4.9); Absolute Monocytes 0.7 K/uL (0.1-1.3); Absolute Neutrophil 3.7 K/uL (1.8-8.0); Basophils % 0.8 % (0-1.3); Eosinophils % 3.4 % (0-4.4); Hematocrit 35.9 % (39.6-49.0); Lymphocytes % 23.8 % (15.3-44.8); MCH 31.9 pg (27.0-35.0); MCV 89.6 fL (80-100); MPV 7.3 fL (7.6-11.3); Monocytes % 11.4 % (3.3-12.3); RBC Red Blood Cell Count 4.01 M/uL (4.33-5.43)
[2018-04-25 07:03] LABS: ALT/SGPT 32 U/L (12-78); AST/SGOT 25 U/L (15-37); Albumin 2.8 g/dL (3.4-5.0); Alkaline Phosphatase 70 U/L (45-117); BUN Blood Urea Nitrogen 13 mg/dL (7-18); Bicarbonate 29 mmol/L (21-32); Bilirubin Total 0.5 mg/dL (0.2-1.0); Glucose Level 212 mg/dL (74-106); Potassium 3.9 mmol/L (3.5-5.1); Sodium Level 133 mmol/L (136-145)
[2018-04-25] MEDS: INSULIN -REGULAR HUMAN 50 UNIT/0.5 ML ML SQ SCH ×4 (07:30→21:57)
--- NOTE | 2018-04-25 08:17 | RAD REPORT ---
EXAM DESCRIPTION: RAD - Chest Single View - 04/25/2018 1:17 am CLINICAL HISTORY: PICC LINE COMPARISON: Chest Single View dated 04/22/2018 FINDINGS: Portable chest was obtained following placement of a left upper extremity PICC line. The c atheter tip projects over the SVC..
[2018-04-25] MEDS ORDERED: POTASSIUM 25 MEQ EFFERV TAB PO ONE (09:00)
[2018-04-25] MEDS: MORPHINE 4 MG/ML SYR IV PRN ×3 (09:50→21:56)
[2018-04-25] MEDS: ENOXAPARIN 40 MG/0.4 ML SQ SCH (10:21)
[2018-04-25] MEDS: VANCOMYCIN 1.75 GM in NA CHLORIDE 0.9% 500 ML IVPB SCH (11:00)
--- NOTE | 2018-04-25 16:05 | P.PN ---
Subjective Date of Service: 04/25/18 Chief Complaint: Cellulitis Subjective: No new changes, No C/O voiced, Improving Patient seen and examined at bedside. No family at bedside. Chart reviewed and case discussed with nursing staff. Reports improved pain Review of Systems As noted Physical Examination - Vital Signs Temperature: 97.6 F Blood Pressure: 113/60 Pulse: 88 Respirations: 20 Pulse Ox (%): 97 Assessment And Plan - Plan This is a 43 year old male with: Left foot cellulitis Continue IV antibiotics Possible osteomyelitis Foot x-ray with possible bone involvement. MRI foot ordered, with active osteomyelitis Continue IV antibiotics. Dr. Rojo, general surgery consult. Will continue wound care with wet-to- dry dressings Diabetic ulcer on left foot, s/p debridement Hx of left great toe amputation DM2, non insulin dependent, uncontrolled He will need strict blood sugar control Accu-checks with mild correction scale insulin. Will adjust as needed Essential hypertension Will restart home medications DVT prophylaxis: Lovenox GI prophylaxis: Not needed Diet: Regular Disposition: Pending symptomatic treatment. Pending setup of IV antibiotics as outpatient. He will need at least 4 weeks of IV antibiotics. Physician Review: Patient Assessed, Agree with Above Assessment and Plan
[2018-04-26] MEDS: VANCOMYCIN 1.75 GM in NA CHLORIDE 0.9% 500 ML IVPB SCH ×3 (00:25→22:18)
[2018-04-26] MEDS: MORPHINE 4 MG/ML SYR IV PRN ×4 (03:00→20:19)
[2018-04-26] MEDS: HYDROCODONE/APAP 5/325 MG TAB PO PRN ×3 (05:36→22:18)
[2018-04-26 06:28] LABS: ALT/SGPT 41 U/L (12-78); AST/SGOT 28 U/L (15-37); Albumin 2.8 g/dL (3.4-5.0); Alkaline Phosphatase 71 U/L (45-117); BUN Blood Urea Nitrogen 13 mg/dL (7-18); Bicarbonate 29 mmol/L (21-32); Bilirubin Total 0.5 mg/dL (0.2-1.0); Glucose Level 195 mg/dL (74-106); Potassium 4.1 mmol/L (3.5-5.1); Protein, Total 7.1 g/dL (6.4-8.2); Sodium Level 134 mmol/L (136-145)
[2018-04-26 07:24] LABS: Absolute Lymphocytes (CBC) 1.6 K/uL (0.7-4.9); Absolute Monocytes 0.7 K/uL (0.1-1.3); Absolute Neutrophil 2.7 K/uL (1.8-8.0); Eosinophils % 4.6 % (0-4.4); Hematocrit 35.7 % (39.6-49.0); Lymphocytes % 30.9 % (15.3-44.8); MCH 31.9 pg (27.0-35.0); MPV 7.5 fL (7.6-11.3); Monocytes % 13.9 % (3.3-12.3); RBC Red Blood Cell Count 4.02 M/uL (4.33-5.43)
[2018-04-26] MEDS: INSULIN -REGULAR HUMAN 50 UNIT/0.5 ML ML SQ SCH ×4 (07:30→21:13)
[2018-04-26] MEDS: ENOXAPARIN 40 MG/0.4 ML SQ SCH (09:05)
[2018-04-26] MEDS ORDERED: KETOROLAC 30 MG/ML INJ IV ONE (10:35)
--- NOTE | 2018-04-26 13:38 | P.PN ---
Subjective Date of Service: 04/26/18 Chief Complaint: Cellulitis Patient seen and examined at bedside. No family at bedside. Chart reviewed and case discussed with nursing staff. Complaining a lot of pain this morning, after wound opened yesterday. Currently draining serosanguineous fluid Review of Systems As noted Physical Examination - Vital Signs Temperature: 97 F Blood Pressure: 140/75 Pulse: 78 Respirations: 18 Pulse Ox (%): 97 - Physical Exam General: Alert, Oriented x3, Moderate distress HEENT: Atraumatic, PERRLA, EOMI Neck: Supple, JVD not distended Respiratory: Clear to auscultation bilaterally, Normal air movement Cardiovascular: Regular rate/rhythm, Normal S1 S2 Gastrointestinal: Normal bowel sounds, No tenderness Musculoskeletal: Swelling (Improved), Tenderness Integumentary: No rashes, Skin breakdown, Skin lesion (On left foot, now draining serosanguineous fluid.), Tenderness/swelling Neurological: Normal speech, Normal tone, Normal affect Lymphatics: No axilla or inguinal lymphadenopathy Assessment And Plan - Plan This is a 43 year old male with: Left foot cellulitis Open abscess, draining Continue IV antibiotics Osteomyelitis Foot x-ray with possible bone involvement. MRI foot with active osteomyelitis Continue IV antibiotics. Dr. Rojo, general surgery consult. Recommendations appreciated. Will pack the top and bottom of foot with Iodoform, wrap with wet to dries. Will continue wound care with wet-to-dry dressings Pain control. IV Toradol x1 given today to see if that will help. Diabetic ulcer on left foot, s/p debridement Hx of left great toe amputation DM2, non insulin dependent, uncontrolled He will need strict blood sugar control Accu-checks with mild correction scale insulin. Will adjust as needed Essential hypertension Continue home medication DVT prophylaxis: Lovenox GI prophylaxis: Not needed Diet: Regular Disposition: Pending symptomatic treatment. Outpatient IV antibiotics set up, 1st appointment is on Saturday at the day surgery. Will continue with pain control in the meanwhile. Likely discharge next 24-48 hr with outpatient follow up for IV antibiotics. He will need at least 4 weeks of IV antibiotics. Physician Review: Patient Assessed, Agree with Above Assessment and Plan Time Spent Managing PTS Care (In Minutes): 45
--- NOTE | 2018-04-26 16:24 | CON ---
Date of Consultation: 04/26/2018 History Of Present Illness: This is a case of a 43-year-old patient, known by us since the patient [facility] and also in the past from diabetic ulcer. He was seen several days ago. Found to have severe cellulitis of the left foot and leg and sent to the ER immediately after we disc ussed that with the ER physician. The patient was admitted to the hospital and a surgical consult wa s obtained today. The patient works a lot. He is not able to use his diabetic shoes. He put a lot of pressure over that area. He was advised in the past the importance of diabetes control and offloa ding shoes and in this case, diabetic shoes. He has not found any primary doctor that has helped wit h his primary doctor, and he was advised the importance of doing so. Otherwise, this diabetes may ge t complicated and he might lose his foot. Past Medical History: Includes diabetes. Medications: Metformin. Allergies: NONE. Past Surgical History: Left great toe amputation. Social History: He does not smoke. He does not drink alcohol. Review of Systems: Ten points otherwise unremarkable. Physical Examination: General: The patient is awake and alert. HEENT: Pupils are equal and reactive, anicteric. Neck: Supple. Chest: Clear. Abdomen: Soft and depressible. Over the left foot region, the patient has an area of cellulitis. W hen we saw him in the [facility] several days ago, the cellulitis involved with the foot ar ea and the leg area right now is resolving, so only 1 point on the foot region that is draining disch arge. He has 2 open areas that we explored now and before, which is in the packing, which is in the dorsal foot. There is a cavity area that does already open. We just need to pack and also the dorsa l foot, the ulcer has been there for some time. No new fluctuance seen. No crepitus at this moment. Dorsalis pedis pulses bilaterally is diminished, but still present. Good capillary refill on the t oes. Laboratory Data: The MRI of the foot shows osteomyelitis changes in the third metatarsal area. The area of fluid collection, and also the foot explored and is open and he just drain out some purulent discharge and has been packed up. No other fluid collection is seen. Assessment: This is a 43-year-old patient, who comes to us with a left foot cellulitis and abscess, diabetic ulcers. The patient once again explained the importance of a wound care, importance of offl oading diabetes control, and following up regularly with a primary doctor. The [facility] will not be able to provide all the services that required other than the wound care already mentione d above. For that reason, it is imperative that he find a primary doctor. From the osteomyelitis, h e has already been set off for long-term antibiotics. From the surgical standpoint, we will see him at the [facility] in a week from now. JAKE/МАРИЯ Voice ID: [id number] Report ID: [id number]
[2018-04-27] MEDS: MORPHINE 4 MG/ML SYR IV PRN ×3 (00:27→13:56)
[2018-04-27] MEDS: INSULIN -REGULAR HUMAN 50 UNIT/0.5 ML ML SQ SCH ×2 (07:30→12:04)
[2018-04-27] MEDS: ENOXAPARIN 40 MG/0.4 ML SQ SCH (08:23)
[2018-04-27 10:29] VITALS: O2SAT 98
[2018-04-27] MEDS: VANCOMYCIN 1.75 GM in NA CHLORIDE 0.9% 500 ML IVPB SCH (11:00)
--- NOTE | 2018-04-27 11:07 | P.DS ---
Admission Date: 04/22/18 Discharge Date: 04/27/18 Disposition: ROUTINE DISCHARGE Discharge Condition: GOOD Reason for Admission: Cellulitis Consultations: Dr. Rojo, general surgery/wound care Brief History of Present Illness: This is a 43 year old male with hx of DM, prior toe amputation sent from wound care center for ascending cellulitis. Patient with a history of a necrotic diabetic ulcer on left foot that was recently debrided here and was being followed at wound care center. Per patient, he was packing his wound on saturday after which he noted his left foot to be getting more red and swollen along with sharp, shooting pain which has been progressively worsening. He went to his wound care appointment today and was told by them to come to ED for possible IV antibiotics. Patient denies any fevers, chills, chest pain, shortness of breath, GI complaints of abdominal complaints. Hospital Course: Patient was admitted for left foot cellulitis, osteomyelitis evaluation. Foot x -ray and MRI consistent with active osteomyelitis of the left foot. He was started on IV antibiotics, pain control and IV fluids. His blood sugars were controlled with correct chin scale insulin. He did receive wound care while he was here with wet to dry dressings. The day prior to discharge, his wound opened from the top part of the foot, with discharge. Dr. tonya curran did see the patient, recommended packing the wound from top and bottom with iodoform and then wrapping with wet to dry. Wound care was performed, patient was taught how to do wound care at home. His pain was controlled with IV Toradol. He was discharged home with instructions on how to do wound care at home, instructions on his outpatient antibiotic treatment and instructions to follow up with Dr. vargas in the [facility]. At the time of discharge, he was hemodynamically stable, pain was controlled, wound was stable. He will be getting IV antibiotics for 4 weeks, re-evaluate that at that time for further IV antibiotics versus transitioning to oral antibiotics for 2 weeks. Vital Signs/Physical Exam: Temp Pulse Resp BP Pulse Ox 98.2 F 83 18 141/89 H 95 04/27/18 08:00 04/27/18 08:00 04/27/18 08:00 04/27/18 08:00 04/27/18 08:00 General: Alert, In no apparent distress, Oriented x3 HEENT: Atraumatic, PERRLA, EOMI Neck: Supple, JVD not distended Respiratory: Clear to auscultation bilaterally, Normal air movement Cardiovascular: Regular rate/rhythm, Normal S1 S2 Gastrointestinal: Normal bowel sounds, No tenderness Musculoskeletal: Erythema, Tenderness, Other (Open wound on left foot, dressing dry) Integumentary: No rashes Neurological: Normal speech, Normal tone, Normal affect Lymphatics: No axilla or inguinal lymphadenopathy Laboratory Data at Discharge: WBC 5.3 K/uL (4.3-10.9) 04/26/18 06:50 Hgb 12.8 g/dL (13.6-17.9) L 04/26/18 06:50 Hct 35.7 % (39.6-49.0) L 04/26/18 06:50 Plt Count 209 K/uL (152-406) 04/26/18 06:50 PT 13.5 SECONDS (9.5-12.5) H 04/22/18 11:43 INR 1.14 04/22/18 11:43 Sodium 134 mmol/L (136-145) L 04/26/18 05:47 Potassium 4.1 mmol/L (3.5-5.1) 04/26/18 05:47 BUN 13 mg/dL (7-18) 04/26/18 05:47 Creatinine 0.90 mg/dL (0.55-1.3) 04/26/18 05:47 Glucose 195 mg/dL (74-106) H 04/26/18 05:47 Magnesium 2.0 mg/dL (1.8-2.4) 04/23/18 05:20 Total Bilirubin 0.5 mg/dL (0.2-1.0) 04/26/18 05:47 AST 28 U/L (15-37) 04/26/18 05:47 ALT 41 U/L (12-78) 04/26/18 05:47 Alkaline Phosphatase 71 U/L (45-117) 04/26/18 05:47 Lipase 288 U/L (73-393) 04/22/18 11:43 Home Medications: Aspirin [Aspirin EC 81 MG] 81 mg PO DAILY #90 tablet. 03/21/18 Gabapentin [Neurontin*] 100 mg PO BID PRN #30 cap 03/21/18 Lisinopril [Zestril] 2.5 mg PO DAILY #30 tablet 03/21/18 Metformin HCl [Glucophage] 1,000 mg PO BID #60 tablet 03/21/18 traMADol HCL [Ultram*] 50 mg PO TID PRN #15 tab 04/27/18 New Medications: traMADol HCL [Ultram*] 50 mg PO TID PRN #15 tab PRN Reason: Pain Patient Discharge Instructions: Please follow up with the wound care center/Dr. Vargas. He will need IV antibiotics for at least 4 weeks. He will be then re- evaluated to see if you need further IV antibiotics for 2 weeks for you can be switched to oral antibiotics at that time. Diet: ADA Activity: Ad jacinto Followup: Thiago Vargas MD [ACTIVE - CAN ADMIT] - Physician Review: Patient Assessed, Agree with Above Assessment and Plan Time spent managing pt's care (in minutes): 55
[2018-04-27] MEDS ORDERED: VANCOMYCIN 1.5 GM in NA CHLORIDE 0.9% 500 ML IVPB SCH (12:00)
[2018-04-27] MEDS: HYDROCODONE/APAP 5/325 MG TAB PO PRN (12:04)
[2018-04-27 12:31] VITALS: BP 109/56; TEMP 97.8
== END 2018-04-27 15:27 | disposition home or self-care (01) | DRG 638 ==
LOC: ER 11:05 → ERHOLD 14:40 → 4TH 15:10
PROVIDERS: ADMIT Family Medicine; ATTEND Family Medicine
PROC: 02HV33Z Insertion of Infusion Device into Superior Vena Cava, Percutaneous Approach (ICD-10-PCS; principal; 2018-04-25)
DX: E11.69 Type 2 diabetes mellitus with other specified complication (principal); M86.172 Other acute osteomyelitis, left ankle and foot; L03.116 Cellulitis of left lower limb; L02.612 Cutaneous abscess of left foot; E11.628 Type 2 diabetes mellitus with other skin complications; Z89.412 Acquired absence of left great toe; E11.621 Type 2 diabetes mellitus with foot ulcer; L97.529 Non-pressure chronic ulcer of other part of left foot with unspecified severity; E11.65 Type 2 diabetes mellitus with hyperglycemia; Z79.84 Long term (current) use of oral hypoglycemic drugs; I10 Essential (primary) hypertension
CPT/HCPCS: 36415; 71045; 80048; 80053; 80076; 80202; 81003; 81015; 82962; 83605; 83690; 83735; 83880; 84145; 84484; 85025; 85610; 85652; 86850; 86900; 86901; 87040; 87070; 87075; 87077; 87086; 87088; 87186; 87205; 93005; 94760; 96365; 96375; 99285; J1650; J2405; J2543; J3370; J3475; J7030

== ENCOUNTER 2018-06-08 16:57 | Inpatient (IN) | payer SELFPAY ==
[2018-06-08] MEDS ORDERED: Levofloxacin 750mg IV 750 MG/150 ML BAG IV ONE (17:58)
[2018-06-08] MEDS ORDERED: FENTANYL CITR 100 MCG/2 ML ONE (17:58)
[2018-06-08] MEDS ORDERED: VANCOMYCIN 1 GM/250 ML BAG ONE (17:58)
[2018-06-08] MEDS ORDERED: ONDANSETRON 4 MG/2 ML VIAL ONE (17:58)
[2018-06-08 18:17] LABS: Absolute Lymphocytes (CBC) 1.2 K/uL (0.7-4.9); Absolute Monocytes 0.7 K/uL (0.1-1.3); Absolute Neutrophil 3.7 K/uL (1.8-8.0); Basophils % 0.5 % (0-1.3); Eosinophils % 2.8 % (0-4.4); Hematocrit 35.6 % (39.6-49.0); Lymphocytes % 21.6 % (15.3-44.8); MPV 7.9 fL (7.6-11.3); Monocytes % 11.5 % (3.3-12.3); RBC Red Blood Cell Count 4.11 M/uL (4.33-5.43)
--- NOTE | 2018-06-08 18:22 | EDPHYS ---
Physician Documentation [facility] Name: Ej Jane Age: 43 yrs Sex: Male : 1975 Arrival Date: 06/08/2018 Time: 17:02 Bed 30 Private MD: ED Physician Omer Lui HPI: 06/08 18:01 This 43 yrs old Male presents to ER via Ambulatory with complaints of Feet jr8 Swelling. 18:06 The patient presents with pain, swelling, tenderness, weakness. The complaints affect jr8 the left foot. Onset: The symptoms/episode began/occurred gradually, 2 week(s) ago, and became worse. Modifying factors: The symptoms are alleviated by nothing, the symptoms are aggravated by weight bearing, movement. Associated signs and symptoms: The patient has no apparent associated signs or symptoms. Severity of symptoms: At their worst the symptoms were moderate, in the emergency department the symptoms are unchanged. The patient has experienced a previous episode. The patient has not recently seen a physician. History of diabetic foot wound. Stated that he just recently completed course of antibiotics a few weeks ago for foot wound. Started to have ulceration on top of foot that is getting worse. Went to PCP and said to treat with pain medicine for now. Stated that the foot is now red, swollen, tender, and that the wound is worsening . Historical: - Allergies: 17:22 No Known Drug Allergies; aj - Home Meds: 17:22 metformin 1,000 mg Oral tab 2 times per day [Active]; aj - PMHx: 17:22 Diabetes - NIDDM; aj - PSHx: 17:22 LEFT GREAT TOE AMPUTATION; aj - Immunization history:: Adult Immunizations up to date. - Social history:: Smoking status: Patient/guardian denies using tobacco. - Ebola Screening: : Patient negative for fever greater than or equal to 101.5 degrees Fahrenheit, and additional compatible Ebola Virus Disease symptoms Patient denies exposure to infectious person Patient denies travel to an Ebola-affected area in the 21 days before illness onset No symptoms or risks identified at this time. ROS: 18:06 Eyes: Negative for injury, pain, redness, and discharge, ENT: Negative for injury, jr8 pain, and discharge, Neck: Negative for injury, pain, and swelling, Cardiovascular: Negative for chest pain, palpitations, and edema, Respiratory: Negative for shortness of breath, cough, wheezing, and pleuritic chest pain, Abdomen/GI: Negative for abdominal pain, nausea, vomiting, diarrhea, and constipation, Back: Negative for injury and pain, Skin: Negative for injury, rash, and discoloration, Neuro: Negative for headache, weakness, numbness, tingling, and seizure. 18:06 MS/extremity: Positive for erythema, pain, swelling, tenderness, of the left foot, ulceration . Exam: 18:18 Eyes: Pupils equal round and reactive to light, extra-ocular motions intact. Lids and jr8 lashes normal. Conjunctiva and sclera are non-icteric and not injected. Cornea within normal limits. Periorbital areas with no swelling, redness, or edema. ENT: Nares patent. No nasal discharge, no septal abnormalities noted. Tympanic membranes are normal and external auditory canals are clear. Oropharynx with no redness, swelling, or masses, exudates, or evidence of obstruction, uvula midline. Mucous membranes moist. Neck: Trachea midline, no thyromegaly or masses palpated, and no cervical lymphadenopathy. Supple, full range of motion without nuchal rigidity, or vertebral point tenderness. No Meningismus. Cardiovascular: Regular rate and rhythm with a normal S1 and S2. No gallops, murmurs, or rubs. Normal PMI, no JVD. No pulse deficits. Respiratory: Lungs have equal breath sounds bilaterally, clear to auscultation and percussion. No rales, rhonchi or wheezes noted. No increased work of breathing, no retractions or nasal flaring. Abdomen/GI: Soft, non-tender, with normal bowel sounds. No distension or tympany. No guarding or rebound. No evidence of tenderness throughout. Back: No spinal tenderness. No costovertebral tenderness. Full range of motion. Neuro: Awake and alert, GCS 15, oriented to person, place, time, and situation. Cranial nerves II-XII grossly intact. Motor strength 5/5 in all extremities. Sensory grossly intact. Cerebellar exam normal. Normal gait. 18:18 Musculoskeletal/extremity: Extremities: grossly normal except: noted in the left foot: Patient has red swollen forefoot with diabetic ulcer at the base of the third digit dorsal aspect. Tender to touch. Partial amputation of second digit with complete amputation of first digit , ROM: intact in all extremities, Circulation is intact in all extremities. Sensation intact. Vital Signs: 17:22 BP 144 / 87; Pulse 104; Resp 20; Temp 97.6; Pulse Ox 100% on R/A; Weight 97.07 kg; aj Height 5 ft. 8 in. (172.72 cm); 18:33 BP 133 / 84; Pulse 97; Resp 18; Temp 99; Pulse Ox 98% on R/A; Pain 2/10; mg2 20:21 BP 132 / 76; Pulse 92; Resp 18; Temp 99(O); Pulse Ox 100% on R/A; Pain 0/10; mg2 17:22 Body Mass Index 32.54 (97.07 kg, 172.72 cm) aj MDM: 17:25 Patient medically screened. jr8 18:18 Data reviewed: vital signs, nurses notes, lab test result(s), radiologic studies, plain jr8 films. Data interpreted: Pulse oximetry: on room air is 100 %. Interpretation: normal. Counseling: I had a detailed discussion with the patient and/or guardian regarding: the historical points, exam findings, and any diagnostic results supporting the discharge/admit diagnosis, lab results, radiology results, the need for further work-up and treatment in the hospital. Physician consultation: Thiago Vargas MD was called at 18:20, was contacted at 18:20, regarding admission, to the medical/surgical unit. consult, patient's condition, and will see patient. 06/08 17:41 Order name: Wound Culture [facility] 06/08 17:43 Order name: CBC with Diff [facility] 06/08 17:43 Order name: Basic Metabolic Panel [facility] 06/08 17:43 Order name: LFT's [facility] 06/08 17:43 Order name: Blood Culture Adult (2) [facility] 06/08 18:24 Order name: CBC with Automated Diff; Complete Time: 18:41 EDMS 06/08 17:59 Order name: XRAY Foot LEFT 3 View jr8 06/08 18:33 Order name: Basic Metabolic Panel; Complete Time: 18:41 EDMS 06/08 18:33 Order name: Liver (Hepatic) Function; Complete Time: 18:41 EDMS 06/08 20:24 Order name: RAD; Complete Time: 20:29 EDDC 06/08 17:43 Order name: IV; Complete Time: 18:05 jr8 Administered Medications: 18:05 Drug: fentaNYL (PF) 75 mcg Route: IVP; Site: right antecubital; mg2 19:33 Follow up: Response: No adverse reaction; Marked relief of symptoms tl3 18:05 Drug: Zofran 4 mg Route: IVP; Site: right antecubital; mg2 19:33 Follow up: Response: No adverse reaction tl3 18:05 Drug: LevaQUIN 750 mg Volume: 150 ml; Route: IVPB; Infused Over: 90 mins; Site: right mg2 antecubital; 19:33 Follow up: IV Status: Completed infusion; IV Intake: 250ml tl3 19:32 Drug: vancoMYCIN 1 grams Route: IVPB; Infused Over: 2 hrs; Site: left antecubital; tl3 Delivery: Primary tubing; 20:25 Follow up: IV Status: Infusion continued upon admission bb Disposition: 06/08/18 18:21 Hospitalization ordered by Thiago Vargas for Inpatient Admission. Preliminary diagnosis are Cellulitis of left lower limb, Open wound of foot. - Bed requested for Telemetry/MedSurg (Inpatient). - Status is Inpatient Admission. mg2 - Condition is Stable. - Problem is new. - Symptoms have improved. UTI on Admission? No Addendum: 06/10/2018 03:40 Co-signature as Attending Physician, Omer Lui MD I agree with the assessment and t w4 plan of care. Signatures: Dispatcher [employer] EDDC Ingris Ashby RN RN Krista Quinones RN DANIEL Isaac Drummond PA PA jr8 Omer Lui MD MD tw4 Terri Arboleda RN RN tl3 Yakov Ibrahim RN RN [facility] Renee Farrell RN bb Corrections: (The following items were deleted from the chart) 06/08 19:59 18:21 Hospitalization Ordered by Thiago Vargas MD for Inpatient Admission. Preliminary diagnosis is Cellulitis of left lower limb; Open wound of foot. Bed requested for Telemetry/MedSurg (Inpatient). Status is Inpatient Admission. Condition is Stable. Problem is new. Symptoms have improved. UTI on Admission? No. jr8 21:10 19:59 06/08/2018 18:21 Hospitalization Ordered by Thiago Vargas MD for Inpatient mg2 Admission. Preliminary diagnosis is Cellulitis of left lower limb; Open wound of foot. Bed requested for Telemetry/MedSurg (Inpatient). Status is Inpatient Admission. Condition is Stable. Problem is new. Symptoms have improved. UTI on Admission? No. mw
--- NOTE | 2018-06-08 18:22 | ER ---
Nurse's Notes [facility] Name: Ej Jane Age: 43 yrs Sex: Male : 1975 Arrival Date: 06/08/2018 Time: 17:02 Bed 30 Private MD: Diagnosis: Cellulitis of left lower limb;Open wound of foot Presentation: 06/08 17:21 Presenting complaint: Patient states: Left foot swelling and chronic foot wound for 1 aj month. Transition of care: patient was not received from another setting of care. Onset of symptoms was May 13, 2018. Risk Assessment: Do you want to hurt yourself or someone else? Patient reports no desire to harm self or others. Initial Sepsis Screen: Does the patient meet any 2 criteria? No. Patient's initial sepsis screen is negative. Does the patient have a suspected source of infection? No. Patient's initial sepsis screen is negative. Care prior to arrival: None. 17:21 Method Of Arrival: Ambulatory aj 17:21 Acuity: YOAV 3 aj Triage Assessment: 17:22 General: Appears in no apparent distress. comfortable, Behavior is calm, cooperative, aj appropriate for age. Pain: Complains of pain in left foot. Neuro: Level of Consciousness is awake, alert, obeys commands, Oriented to person, place, time, situation, Appropriate for age. Respiratory: Airway is patent Respiratory effort is even, unlabored, Respiratory pattern is regular, symmetrical. Derm: Skin is intact, is healthy with good turgor, Skin is pink, warm \T\ dry. normal, Wound noted left foot. Historical: - Allergies: 17:22 No Known Drug Allergies; aj - Home Meds: 17:22 metformin 1,000 mg Oral tab 2 times per day [Active]; aj - PMHx: 17:22 Diabetes - NIDDM; aj - PSHx: 17:22 LEFT GREAT TOE AMPUTATION; aj - Immunization history:: Adult Immunizations up to date. - Social history:: Smoking status: Patient/guardian denies using tobacco. - Ebola Screening: : Patient negative for fever greater than or equal to 101.5 degrees Fahrenheit, and additional compatible Ebola Virus Disease symptoms Patient denies exposure to infectious person Patient denies travel to an Ebola-affected area in the 21 days before illness onset No symptoms or risks identified at this time. Screenin:08 Abuse screen: Denies threats or abuse. Denies injuries from another. Nutritional mg2 screening: No deficits noted. Tuberculosis screening: No symptoms or risk factors identified. Fall Risk IV access (20 points). Assessment: 18:05 General: Appears in no apparent distress. comfortable, Behavior is calm, cooperative. mg2 Pain: Complains of pain in left foot Pain radiates to left leg Pain currently is 5 out of 10 on a pain scale. Quality of pain is described as aching, Pain began gradually, Is intermittent. Neuro: Level of Consciousness is awake, alert, obeys commands, Oriented to person, place, time, situation. Cardiovascular: Capillary refill < 3 seconds Patient's skin is warm and dry. Respiratory: Airway is patent Respiratory effort is even, unlabored, Respiratory pattern is regular, symmetrical. GI: No signs and/or symptoms were reported involving the gastrointestinal system. : No signs and/or symptoms were reported regarding the genitourinary system. EENT: No signs and/or symptoms were reported regarding the EENT system. Derm: Skin has lesions on left foot Wound noted left foot Wound is open and tender. Musculoskeletal: Amputation of Circulation, motion, and sensation intact. Capillary refill < 3 seconds, Swelling present in left foot. 18:33 Reassessment: dr burt came and spoke to the patient about the need for mg2 hospitalization, patient agreed. 20:24 Reassessment: report given to Allyssa SANCHEZ for bed 204. bb Vital Signs: 17:22 BP 144 / 87; Pulse 104; Resp 20; Temp 97.6; Pulse Ox 100% on R/A; Weight 97.07 kg; aj Height 5 ft. 8 in. (172.72 cm); 18:33 BP 133 / 84; Pulse 97; Resp 18; Temp 99; Pulse Ox 98% on R/A; Pain 2/10; mg2 20:21 BP 132 / 76; Pulse 92; Resp 18; Temp 99(O); Pulse Ox 100% on R/A; Pain 0/10; mg2 17:22 Body Mass Index 32.54 (97.07 kg, 172.72 cm) ED Course: 17:02 Patient arrived in ED. mr 17:22 Triage completed. aj 17:22 Arm band placed on left wrist. Patient placed in an exam room. aj 17:25 Isaac Drummond PA is PHCP. jr8 17:25 Omer Lui MD is Attending Physician. jr8 17:40 Yakov Ibrahim, DANIEL is Primary Nurse. mg2 18:08 No provider procedures requiring assistance completed. Inserted saline lock: 20 gauge mg2 in right antecubital area, using aseptic technique. Blood collected. 18:09 Patient has correct armband on for positive identification. Door closed. mg2 18:21 Thiago Vargas MD is Hospitalizing Provider. jr8 20:25 Patient admitted, IV remains in place. mg2 20:25 Patient admitted, IV remains in place. bb Administered Medications: 18:05 Drug: fentaNYL (PF) 75 mcg Route: IVP; Site: right antecubital; mg2 19:33 Follow up: Response: No adverse reaction; Marked relief of symptoms tl3 18:05 Drug: Zofran 4 mg Route: IVP; Site: right antecubital; mg2 19:33 Follow up: Response: No adverse reaction tl3 18:05 Drug: LevaQUIN 750 mg Volume: 150 ml; Route: IVPB; Infused Over: 90 mins; Site: right mg2 antecubital; 19:33 Follow up: IV Status: Completed infusion; IV Intake: 250ml tl3 19:32 Drug: vancoMYCIN 1 grams Route: IVPB; Infused Over: 2 hrs; Site: left antecubital; tl3 Delivery: Primary tubing; 20:25 Follow up: IV Status: Infusion continued upon admission bb Intake: 19:33 IV: 250ml; Total: 250ml. tl3 Outcome: 18:21 Decision to Hospitalize by Provider. jr8 20:24 Admitted to Tele accompanied by tech, via wheelchair, room 204, with chart, Report bb called to Allyssa SANCHEZ 20:24 Condition: stable 20:24 Instructed on the need for admit. 21:10 Patient left the ED. mg2 Signatures: Krista Quinones, RN Kaelyn Jean Brenda RN DANIEL bb Isaac Drummond PA PA jr8 Terri Arboleda RN RN tl3 Yakov Ibrahim, DANIEL RN mg2
[2018-06-08 18:33] LABS: Albumin 3.4 g/dL (3.4-5.0); Bilirubin Direct 0.2 mg/dL (0-0.2); Bilirubin Total 0.7 mg/dL (0.2-1.0); Potassium 3.7 mmol/L (3.5-5.1)
--- NOTE | 2018-06-08 20:23 | RAD REPORT ---
EXAM DESCRIPTION: RAD - Foot Left 3 View - 06/08/2018 6:44 pm CLINICAL HISTORY: Pain and swelling, diabetes, prior amputation and soft tissue ulceration COMPARISON: April 22, 2018 FINDINGS: First toe has been resected. No acute findings involving the first metatarsal. Bone loss c hanges are present at the base of the second proximal phalanx. There is impaction on to the second me tatarsal head. Distal phalanx has been resected. No new or progressive bone loss seen at the second p roximal phalanx. Further bone loss and fragmentation present at the third proximal phalanx. Erosive c hanges are now present in the third metatarsal head new from April. The third middle and distal ph alanges show no suspicious finding. Elsewhere in the foot no new or progressive acute or destructive bone process seen. No air or foreign body in the soft tissues. IMPRESSION: New or progressive left foot osteomyelitis changes are present seen as bone fragmentatio n and bone loss third proximal phalanx. There are erosive changes of osteomyelitis involving the third metatarsal head.
[2018-06-08] MEDS ORDERED: ONDANSETRON 4 MG/2 ML VIAL IV PRN (20:50)
[2018-06-08] MEDS ORDERED: ACETAMINOPHEN 500 MG TAB PO PRN (20:50)
[2018-06-08] MEDS ORDERED: VANCOMYCIN 1GM/D5W 200 ML IV SCH (21:00)
[2018-06-08 21:44] VITALS: BMI 31.8
[2018-06-08] MEDS: MORPHINE 4 MG/ML SYR IV PRN (22:15)
[2018-06-08] MEDS ORDERED: VANCOMYCIN 1.5 GM in NA CHLORIDE 0.9% 500 ML IVPB ONE (23:00)
[2018-06-08] MEDS ORDERED: VANCOMYCIN 1 GM/VIAL ONE (23:37)
[2018-06-08] MEDS ORDERED: VANCOMYCIN 500 MG/VIAL ONE (23:38)
[2018-06-08] MEDS ORDERED: NA CHLORIDE 0.9% 250 ML ONE (23:41)
[2018-06-09] MEDS: MORPHINE 4 MG/ML SYR IV PRN ×4 (03:13→20:54)
[2018-06-09 06:32] LABS: Potassium 4.5 mmol/L (3.5-5.1)
[2018-06-09 06:33] LABS: Absolute Lymphocytes (CBC) 0.7 K/uL (0.7-4.9); Absolute Monocytes 0.6 K/uL (0.1-1.3); Absolute Neutrophil 3.4 K/uL (1.8-8.0); Basophils % 0.7 % (0-1.3); Eosinophils % 3.2 % (0-4.4); Hematocrit 31.2 % (39.6-49.0); Lymphocytes % 14.8 % (15.3-44.8); Monocytes % 12.7 % (3.3-12.3); RBC Red Blood Cell Count 3.55 M/uL (4.33-5.43)
--- NOTE | 2018-06-09 13:05 | P.HP ---
Certification for Inpatient Patient admitted to: Inpatient With expected LOS: >2 Midnights Patient will require the following post-hospital care: None Practitioner: I am a practitioner with admitting privileges, knowledge of patient current condition, hospital course, and medical plan of care. Services: Services provided to patient in accordance with Admission requirements found in Title 42 Section 412.3 of the Code of Federal Regulations Patient History Date of Service: 06/09/18 Primary Care Provider: Alicia Reason for admission: Cellulitis History of Present Illness: Patient of mine. History of recent osteomyletis. 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 Right where he had the recent osteo. He was in the office last week. The patient was started on NSAID therapy. He would go back to work the next day. Came in the ER with pain and swelling in the left foot. Actually appears about the same as it did in the office. However he does have a new blister on the dorsum of the 3rd toe. The xray showed possible bone changes and loss. Allergies No Known Drug Allergies Allergy (Intermediate, Verified 06/08/18 21:27) Itching Home Medications: Metformin HCl [Glucophage] 1,000 mg PO BID #60 tablet 03/21/18 Smz./Tmp. [Bactrim Ds 800 MG/160 MG] 1 tab PO BID 7 Days #14 tab 06/09/18 - Past Medical/Surgical History Has patient received pneumonia vaccine in the past: No Diabetic: Yes -: Diabetes mellitus types 2 -: Toe amputation left great toe and second tip toe - Family History parents -: Heart disease, Diabetes - Social History Smoking Status: Current every day smoker Alcohol use: Yes CD- Drugs: No Caffeine use: No Review of Systems 10-point ROS is otherwise unremarkable Musculoskeletal: Foot Pain (left side) Physical Examination - Vital Signs Temperature: 98.2 F Blood Pressure: 122/68 Pulse: 80 Respirations: 18 Pulse Ox (%): 93 - Physical Exam General: Alert, In no apparent distress HEENT: Atraumatic, PERRLA, Mucous membr. moist/pink, EOMI, Sclerae nonicteric Neck: Supple, 2+ carotid pulse no bruit, No LAD, Without JVD or thyroid abnormality Respiratory: Clear to auscultation bilaterally, Normal air movement Cardiovascular: Regular rate/rhythm, Normal S1 S2 Gastrointestinal: Normal bowel sounds, No tenderness Musculoskeletal: No tenderness Integumentary: No rashes Neurological: Normal gait, Normal speech, Normal strength at 5/5 x4 extr, Normal tone, Normal affect Lymphatics: No axilla or inguinal lymphadenopathy - Studies Laboratory Data (last 24 hrs) 06/08/18 17:45: Sodium 138, Potassium 3.7, BUN 17, Creatinine 1.59 H, Glucose 199 H, Total Bilirubin 0.7, AST 10 L, ALT 20, Alkaline Phosphatase 92 06/08/18 17:45: WBC 5.8, Hgb 12.4 L, Hct 35.6 L, Plt Count 244 Microbiology Data (last 24 hrs): 06/08/18 18:00 Wound - Left Toe Gram Stain - Final Assessment and Plan - Problems (Diagnosis) (1) Diabetes mellitus Onset Date: 03/20/18 Current Visit: No Status: Acute Plan: start an insulin sliding scale. Will restart the metformin Qualifiers: Diabetes mellitus type: type 2 Diabetes mellitus copy writer insulin use: without copy writer use Diabetes mellitus complication status: with unspecified complications Qualified Code(s): E11.8 - Type 2 diabetes mellitus with unspecified complications (2) Osteomyelitis Current Visit: No Status: Acute Plan: will continue the levaquin. Will most likely need the fdc iv antibiotics. Will consult Dr. Rojo Qualifiers: Osteomyelitis type: other chronic hematogenous Discharge Plan: Home Plan to discharge in: 48 Hours - Advance Directives Does patient have a Living Will: No Does patient have a Durable POA for Healthcare: No - Code Status/Comfort Care Code Status Assessed: No Code Status: Full Code Physician Review: Patient Assessed, Agree with Above Assessment and Plan Critical Care: No Time Spent Managing Pts Care (In Minutes): 45
[2018-06-09] MEDS: Levofloxacin 750mg IV 750 MG/150 ML BAG IV SCH (16:28)
[2018-06-09] MEDS ORDERED: VANCOMYCIN 1.75 GM in NA CHLORIDE 0.9% 500 ML IVPB SCH (17:00)
[2018-06-09] MEDS ORDERED: GLUCAGON 1 MG/VIAL IM PRN (17:23)
[2018-06-09] MEDS ORDERED: D50W 25 GM/50 ML SYRINGE IV PRN (17:23)
--- NOTE | 2018-06-09 17:29 | P.PN ---
Date of Service: 06/09/[address] Rojo. Most likey his osteomyelitis has returned. Will arrange for 6 weeks of iv levaquin. Meet with the patient and discussed this new finding. Stated it would be important to save his foot. He most likely would benefit from orthotoics or a diabetic shoe to protect the area.
[2018-06-09] MEDS: ENOXAPARIN 30 MG/0.3 ML SQ SCH (17:40)
[2018-06-09] MEDS: NA CHLORIDE 0.9% 1,000 ML IV SCH (17:41)
[2018-06-09] MEDS: HYDROCODONE/APAP 7.5/325 MG TAB PO PRN ×2 (17:48→23:32)
[2018-06-09] MEDS: INSULIN -REGULAR HUMAN 50 UNIT/0.5 ML ML SQ SCH (20:54)
[2018-06-09] MEDS: VANCOMYCIN 1.5 GM in NA CHLORIDE 0.9% 500 ML IVPB SCH (23:18)
[2018-06-10] MEDS: MORPHINE 4 MG/ML SYR IV PRN ×4 (06:28→23:19)
[2018-06-10] MEDS: NA CHLORIDE 0.9% 1,000 ML IV SCH ×2 (07:20→20:40)
--- NOTE | 2018-06-10 08:31 | RAD REPORT ---
EXAM DESCRIPTION: RAD - Chest Single View - 06/10/2018 3:55 am CLINICAL HISTORY: PICC Placement COMPARISON: Chest Single View dated 04/25/2018; Chest Single View dated 04/22/2018 FINDINGS: Portable chest was obtained following placement of a left upper extremity PICC line. The c atheter tip projects over the SVC.
[2018-06-10] MEDS: INSULIN -REGULAR HUMAN 50 UNIT/0.5 ML ML SQ SCH ×4 (08:36→21:00)
--- NOTE | 2018-06-10 10:01 | P.PN ---
Subjective Date of Service: 06/10/18 Primary Care Provider: Alicia Chief Complaint: Cellulitis Subjective: No new changes Review of Systems 10-point ROS is otherwise unremarkable Musculoskeletal: Foot Pain (left) Physical Examination - Vital Signs Temperature: 97.8 F Blood Pressure: 134/77 Pulse: 80 Respirations: 20 Pulse Ox (%): 98 - Physical Exam General: Alert, In no apparent distress HEENT: Atraumatic, PERRLA, EOMI Neck: Supple, JVD not distended Respiratory: Clear to auscultation bilaterally, Normal air movement Cardiovascular: Regular rate/rhythm, Normal S1 S2 Gastrointestinal: Normal bowel sounds, No tenderness Musculoskeletal: No tenderness Integumentary: No rashes Neurological: Normal speech, Normal tone, Normal affect Lymphatics: No axilla or inguinal lymphadenopathy - Studies Microbiology Data (last 24 hrs): 06/08/18 18:00 Wound - Left Toe Gram Stain - Final 06/08/18 18:00 Wound - Left Toe Culture & Sensitivity - Final Staph Aureus Assessment & Plan - Problems (Diagnosis) (1) Osteomyelitis Current Visit: No Status: Acute Plan: Patient has his Picc line. Will have drug abuse social worker arrange 6 weeks of iv antibiotics. Will need him to follow up with advanced brace to protect the foot. It is unlikely he will stop working. 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 Which would traumatize the exact area. have discussed the combination of tylenol with ibuprofen together for pain management. Qualifiers: Osteomyelitis type: other chronic hematogenous (2) Diabetes mellitus Onset Date: 03/20/18 Current Visit: No Status: Acute Plan: start an insulin sliding scale. Will restart the metformin Qualifiers: Diabetes mellitus type: type 2 Diabetes mellitus penitentiary insulin use: without truck terminal manager use Diabetes mellitus complication status: with unspecified complications Qualified Code(s): E11.8 - Type 2 diabetes mellitus with unspecified complications Discharge Plan: Home Plan to discharge in: 24 Hours - Code Status/Comfort Care Code Status Assessed: No Code Status: Full Code Physician Review: Patient Assessed, Agree with Above Assessment and Plan Critical Care: No Time Spent Managing Pts Care (In Minutes): 20
[2018-06-10 15:34] VITALS: O2SAT 97
[2018-06-10] MEDS ORDERED: ENOXAPARIN 30 MG/0.3 ML SQ SCH (17:00)
[2018-06-10] MEDS: Levofloxacin 750mg IV 750 MG/150 ML BAG IV SCH (17:02)
[2018-06-10] MEDS: ENOXAPARIN 30 MG/0.3 ML SQ SCH (17:03)
[2018-06-10] MEDS: VANCOMYCIN 1.5 GM in NA CHLORIDE 0.9% 500 ML IVPB SCH (23:00)
[2018-06-11] MEDS: HYDROCODONE/APAP 7.5/325 MG TAB PO PRN ×3 (00:33→14:56)
[2018-06-11] MEDS: MORPHINE 4 MG/ML SYR IV PRN ×3 (03:54→16:57)
[2018-06-11] MEDS: INSULIN -REGULAR HUMAN 50 UNIT/0.5 ML ML SQ SCH ×3 (07:30→16:30)
[2018-06-11] MEDS: NA CHLORIDE 0.9% 1,000 ML IV SCH (10:00)
--- NOTE | 2018-06-11 10:01 | P.DS ---
Admission Date: 06/08/18 Discharge Date: 06/11/18 Primary Care Provider: Alicia Disposition: ROUTINE DISCHARGE Discharge Condition: GOOD Reason for Admission: Cellulitis - Problems (1) Osteomyelitis Current Visit: No Status: Acute Qualifiers: Osteomyelitis type: other chronic hematogenous (2) Diabetes mellitus Onset Date: 03/20/18 Current Visit: No Status: Acute Qualifiers: Diabetes mellitus type: type 2 Diabetes mellitus shelter insulin use: without manager long term care use Diabetes mellitus complication status: with unspecified complications Qualified Code(s): E11.8 - Type 2 diabetes mellitus with unspecified complications Brief History of Present Illness: Patient of mine. History of recent osteomyletis. 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 Right where he had the recent osteo. He was in the office last week. The patient was started on NSAID therapy. He would go back to work the next day. Came in the ER with pain and swelling in the left foot. Actually appears about the same as it did in the office. However he does have a new blister on the dorsum of the 3rd toe. The xray showed possible bone changes and loss. Hospital Course: Patient admitted for swelling. Xray shows fracture of the bone and inflammation. Either osteo or trauma could have caused these changes. Regardless restarting antibiotics would be prudent in the interest of saving the man's foot. Have also been told this by Dr. Rojo. Will restart levaquin. Which was on his previous cultures antibiotigram. Will have him follow up in the office. Vital Signs/Physical Exam: Temp Pulse Resp BP Pulse Ox 97.1 F 80 15 127/72 100 06/11/18 08:00 06/11/18 08:00 06/11/18 08:00 06/11/18 08:00 06/11/18 08:00 General: Alert, In no apparent distress HEENT: Atraumatic, PERRLA, EOMI Neck: Supple, JVD not distended Respiratory: Clear to auscultation bilaterally, Normal air movement Cardiovascular: Regular rate/rhythm, Normal S1 S2 Gastrointestinal: Normal bowel sounds, No tenderness Musculoskeletal: No tenderness Integumentary: No rashes Neurological: Normal speech, Normal tone, Normal affect Lymphatics: No axilla or inguinal lymphadenopathy Laboratory Data at Discharge: WBC 4.9 K/uL (4.3-10.9) D 06/09/18 05:50 Hgb 10.8 g/dL (13.6-17.9) L 06/09/18 05:50 Hct 31.2 % (39.6-49.0) L 06/09/18 05:50 Plt Count 192 K/uL (152-406) D 06/09/18 05:50 Sodium 137 mmol/L (136-145) 06/09/18 05:50 Potassium 4.5 mmol/L (3.5-5.1) 06/09/18 05:50 BUN 17 mg/dL (7-18) 06/09/18 05:50 Creatinine 1.34 mg/dL (0.55-1.3) H 06/10/18 22:53 Glucose 247 mg/dL (74-106) H 06/09/18 05:50 Total Bilirubin 0.7 mg/dL (0.2-1.0) 06/08/18 17:45 AST 10 U/L (15-37) L 06/08/18 17:45 ALT 20 U/L (12-78) 06/08/18 17:45 Alkaline Phosphatase 92 U/L (45-117) 06/08/18 17:45 Home Medications: Metformin HCl [Glucophage] 1,000 mg PO BID #60 tablet 03/21/18 Patient Discharge Instructions: Patient needs a referal to Advanced brace Diet: ADA Activity: Ad jacinto Time spent managing pt's care (in minutes): 40
[2018-06-11 16:32] VITALS: BP 127/76; TEMP 97.7
[2018-06-11] MEDS: ENOXAPARIN 30 MG/0.3 ML SQ SCH (17:00)
[2018-06-11] MEDS: Levofloxacin 750mg IV 750 MG/150 ML BAG IV SCH (17:00)
== END 2018-06-11 18:18 | disposition home or self-care (01) | DRG 541 ==
LOC: ER 16:57 → OBSVTOIN 19:59 → INTOOBSV 19:59 → ERHOLD 19:59 → 2ND 20:27
PROVIDERS: ADMIT Internal Medicine; ATTEND Internal Medicine
PROC: 02HV33Z Insertion of Infusion Device into Superior Vena Cava, Percutaneous Approach (ICD-10-PCS; principal; 2018-06-10)
PROC: B548ZZA Ultrasonography of Superior Vena Cava, Guidance (ICD-10-PCS; 2018-06-10)
DX: M86.172 Other acute osteomyelitis, left ankle and foot (principal); E11.69 Type 2 diabetes mellitus with other specified complication; Z79.84 Long term (current) use of oral hypoglycemic drugs
CPT/HCPCS: 36415; 71045; 80048; 80076; 80202; 82565; 82962; 85025; 85652; 87040; 87070; 87077; 87186; 87205; J1650; J2405; J3010; J3370; J7030

== ENCOUNTER 2018-07-31 15:48 | Emergency (ER) | payer SELFPAY ==
--- NOTE | 2018-07-31 18:51 | RAD REPORT ---
EXAM DESCRIPTION: RAD - Chest Single View - 07/31/2018 6:46 pm CLINICAL HISTORY: picc line removed Chest pain. COMPARISON: Chest Single View dated 06/10/2018; Chest Single View dated 04/25/2018; Chest Single View dated 04/22/2018 FINDINGS: Portable technique limits examination quality. The lungs are grossly clear. The heart is normal in size. No displaced fractures. IMPRESSION: No acute intrathoracic process suspected.
--- NOTE | 2018-07-31 18:56 | EDPHYS ---
Physician Documentation [facility] Name: Ej Jane Age: 43 yrs Sex: Male : 1975 Arrival Date: 07/31/2018 Time: 15:51 Bed 12 Private MD: ED Physician Demetrio Arenas HPI: 07/31 17:59 This 43 yrs old Male presents to ER via Ambulatory with complaints of REMOVE kb PICC LINE. 17:59 Pt presents with order from Dr Vargas to remove PICC line from E.. The patient has not kb experienced similar symptoms in the past. The patient has not recently seen a physician. Historical: - Allergies: 16:41 No Known Drug Allergies; ph - PMHx: 16:41 Diabetes - NIDDM; ph - PSHx: 16:41 LEFT GREAT TOE AMPUTATION; ph - Immunization history:: Adult Immunizations unknown. - Social history:: Smoking status: Patient/guardian denies using tobacco. - Ebola Screening: : No symptoms or risks identified at this time. ROS: 17:58 Constitutional: Negative for fever, chills, and weight loss, ENT: Negative for injury, kb pain, and discharge, Neck: Negative for injury, pain, and swelling, Cardiovascular: Negative for chest pain, palpitations, and edema, Respiratory: Negative for shortness of breath, cough, wheezing, and pleuritic chest pain, Abdomen/GI: Negative for abdominal pain, nausea, vomiting, diarrhea, and constipation, MS/Extremity: Negative for injury and deformity, Skin: Negative for injury, rash, and discoloration, Neuro: Negative for headache, weakness, numbness, tingling, and seizure. Exam: 17:58 Constitutional: This is a well developed, well nourished patient who is awake, alert, kb and in no acute distress. Head/Face: Normocephalic, atraumatic. Neck: Trachea midline, no thyromegaly or masses palpated, and no cervical lymphadenopathy. Supple, full range of motion without nuchal rigidity, or vertebral point tenderness. No Meningismus. Chest/axilla: Normal chest wall appearance and motion. Nontender with no deformity. No lesions are appreciated. Cardiovascular: Regular rate and rhythm with a normal S1 and S2. No gallops, murmurs, or rubs. Normal PMI, no JVD. No pulse deficits. Respiratory: Lungs have equal breath sounds bilaterally, clear to auscultation and percussion. No rales, rhonchi or wheezes noted. No increased work of breathing, no retractions or nasal flaring. Abdomen/GI: Soft, non-tender, with normal bowel sounds. No distension or tympany. No guarding or rebound. No evidence of tenderness throughout. Skin: Warm, dry with normal turgor. Normal color with no rashes, no lesions, and no evidence of cellulitis. MS/ Extremity: Pulses equal, no cyanosis. Neurovascular intact. Full, normal range of motion. Neuro: Awake and alert, GCS 15, oriented to person, place, time, and situation. Cranial nerves II-XII grossly intact. Motor strength 5/5 in all extremities. Sensory grossly intact. Cerebellar exam normal. Normal gait. Vital Signs: 16:40 BP 125 / 82; Pulse 96; Resp 18; Temp 98.0; Pulse Ox 97% on R/A; ph MDM: 17:52 Patient medically screened. kb 17:57 Data reviewed: vital signs, nurses notes. Data interpreted: Pulse oximetry: on room air kb is 97 %. Interpretation: normal. Counseling: I had a detailed discussion with the patient and/or guardian regarding: the historical points, exam findings, and any diagnostic results supporting the discharge/admit diagnosis, the need for outpatient follow up, a family practitioner, to return to the emergency department if symptoms worsen or persist or if there are any questions or concerns that arise at home. 07/31 18:23 Order name: Chest Single View XRAY; Complete Time: 18:55 kb 07/31 17:57 Order name: Misc. Order: Remove PICC; Complete Time: 18:24 kb Administered Medications: No medications were administered Disposition: 08/01 09:09 Co-signature as Attending Physician, Demetrio Arenas MD I agree with the assessment and tereso plan of care. Disposition: 07/31/18 18:56 Discharged to Home. Impression: Encounter for removal of PICC. - Condition is Stable. - Discharge Instructions: PICC Removal, Care After. - Medication Reconciliation Form, Thank You Letter, Antibiotic Education, Prescription Opioid Use form. - Follow up: Emergency Department; When: As needed; Reason: Worsening of condition. Follow up: Private Physician; When: 2 - 3 days; Reason: Recheck today's complaints, Continuance of care, Re-evaluation by your physician. Signatures: Dispatcher [employer] EDAnita Bennett, ORI-Rai REHMAN-Demetrio Bruner MD MD cha Hall, Patricia, RN RN Salena Alcala RN RN Corrections: (The following items were deleted from the chart) 07/31 19:30 18:56 07/31/2018 18:56 Discharged to Home. Impression: Encounter for removal of PICC. hb Condition is Stable. Forms are Medication Reconciliation Form, Thank You Letter, Antibiotic Education, Prescription Opioid Use. Follow up: Emergency Department; When: As needed; Reason: Worsening of condition. Follow up: Private Physician; When: 2 - 3 days; Reason: Recheck today's complaints, Continuance of care, Re-evaluation by your physician. kb
--- NOTE | 2018-07-31 18:56 | ER ---
Nurse's Notes [facility] Name: Ej Jane Age: 43 yrs Sex: Male : 1975 Arrival Date: 07/31/2018 Time: 15:51 Bed 12 Private MD: Diagnosis: Encounter for removal of PICC Presentation: 07/31 16:39 Presenting complaint: Patient states: IV therapy complete, here to have PICC removed, ph denies pain, fever or swelling. Transition of care: patient was not received from another setting of care. Onset of symptoms was July 31, 2018. Risk Assessment: Do you want to hurt yourself or someone else? Patient reports no desire to harm self or others. Initial Sepsis Screen: Does the patient meet any 2 criteria? No. Patient's initial sepsis screen is negative. Does the patient have a suspected source of infection? No. Patient's initial sepsis screen is negative. Care prior to arrival: None. 16:39 Method Of Arrival: Ambulatory ph 16:39 Acuity: YOAV 4 ph Historical: - Allergies: 16:41 No Known Drug Allergies; ph - PMHx: 16:41 Diabetes - NIDDM; ph - PSHx: 16:41 LEFT GREAT TOE AMPUTATION; ph - Immunization history:: Adult Immunizations unknown. - Social history:: Smoking status: Patient/guardian denies using tobacco. - Ebola Screening: : No symptoms or risks identified at this time. Screenin:15 Abuse screen: Denies threats or abuse. Denies injuries from another. Nutritional hb screening: No deficits noted. Tuberculosis screening: No symptoms or risk factors identified. Fall Risk None identified. Assessment: 18:00 General: Appears in no apparent distress. Behavior is calm, cooperative. Pain: Denies hb pain. Neuro: Level of Consciousness is awake, alert, obeys commands, Oriented to person, place, time, situation. Cardiovascular: Capillary refill < 3 seconds Patient's skin is warm and dry. Respiratory: Airway is patent Respiratory effort is even, unlabored, Respiratory pattern is regular, symmetrical. GI: No signs and/or symptoms were reported involving the gastrointestinal system. : No signs and/or symptoms were reported regarding the genitourinary system. EENT: No signs and/or symptoms were reported regarding the EENT system. Derm: Skin is intact, is healthy with good turgor. Musculoskeletal: No signs and/or symptoms reported regarding the musculoskeletal system. 18:15 Reassessment: LEFT UE PICC removed, line intact at 42 cm. Pressure held and site hb dressed with gauze and tagaderm. Site without redness or swelling. Pt tolerated well. Vital Signs: 16:40 BP 125 / 82; Pulse 96; Resp 18; Temp 98.0; Pulse Ox 97% on R/A; ph ED Course: 15:51 Patient arrived in ED. tw3 16:40 Triage completed. ph 16:41 Arm band placed on. ph 17:52 Anita Montelongo FNP-C is PHCP. kb 17:52 Demetrio Arenas MD is Attending Physician. kb 18:15 Call light in reach. hb 18:23 Salena Alcala, RN is Primary Nurse. hb 18:45 No provider procedures requiring assistance completed. hb 18:46 Chest Single View XRAY In Process Unspecified. EDMS Administered Medications: No medications were administered Outcome: 18:45 Discharged to home ambulatory. hb 18:45 Condition: stable 18:45 Discharge instructions given to patient, Instructed on discharge instructions, follow up and referral plans. Demonstrated understanding of instructions, follow-up care. 18:56 Discharge ordered by MD. kb 19:30 Patient left the ED. hb Signatures: Dispatcher [employer] EDMS Anita Montelongo FNP-C FNP-Ckb Hall, Patricia, RN RN Salena Alcala, RN RN jac West, Ellie tw3
[2018-07-31 21:25] VITALS: BP 125/82; TEMP 98; O2SAT 97
== END 2018-07-31 19:30 | disposition home or self-care (01) ==
LOC: ER 15:48
DX: Z45.2 Encounter for adjustment and management of vascular access device (principal); E11.9 Type 2 diabetes mellitus without complications
CPT/HCPCS: 71045; 99283

== ENCOUNTER 2021-02-01 15:24 | Emergency (ER) | payer OTHER, SELFPAY ==
[2021-02-01] MEDS ORDERED: FENTANYL CITR 100 MCG/2 ML ONE ×2 (15:54→16:41)
[2021-02-01] MEDS ORDERED: ONDANSETRON 4 MG/2 ML VIAL ONE (15:54)
[2021-02-01 16:05] LABS: Absolute Lymphocytes (CBC) 1.8 K/uL (0.7-4.9); Basophils % 0.5 % (0-1.3); Lymphocytes % 30.6 % (15.3-44.8); MPV 8.2 fL (7.6-11.3); RBC Red Blood Cell Count 4.73 M/uL (4.33-5.43)
[2021-02-01 16:37] LABS: Potassium 3.7 mmol/L (3.5-5.1)
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
[2021-02-01] MEDS ORDERED: HYDROMORPHONE HCL 1 MG/ML INJ ONE (18:23)
[2021-02-01 18:46] VITALS: O2SAT 100
[2021-02-01 18:48] VITALS: BP 155/96
== END 2021-02-01 18:37 | disposition short-term general hospital (02) ==
LOC: ER 15:24
DX: S22.43XA Multiple fractures of ribs, bilateral, initial encounter for closed fracture (principal); S22.20XA Unspecified fracture of sternum, initial encounter for closed fracture; S27.892A Contusion of other specified intrathoracic organs, initial encounter; S27.69XA Other injury of pleura, initial encounter; V49.40XA Driver injured in collision with unspecified motor vehicles in traffic accident, initial encounter; E11.9 Type 2 diabetes mellitus without complications
CPT/HCPCS: 93005; 85025; 80048; 36415; 86900; 86850; 82565; 86901; 70450; 72125; 71260; 74177; 96375; 96374; 99285; Q9967; J3010 ×2; J1170; J2405; G0390

== ENCOUNTER 2021-10-17 11:02 | Inpatient (IN) | payer SELFPAY ==
[2021-10-17 12:00] LABS: Absolute Lymphocytes (CBC) 1.9 K/uL (0.7-4.9); Hematocrit 30.5 % (39.6-49.0); Lymphocytes % 26.3 % (15.3-44.8); MPV 6.4 fL (7.6-11.3); RBC Red Blood Cell Count 3.61 M/uL (4.33-5.43)
[2021-10-17 12:09] LABS: Protime INR 1.05
[2021-10-17 12:18] LABS: Albumin 2.4 g/dL (3.4-5.0); Bilirubin Total 0.3 mg/dL (0.2-1.0); Potassium 3.7 mmol/L (3.5-5.1); Protein, Total 7.8 g/dL (6.4-8.2)
--- NOTE | 2021-10-17 12:49 | RAD REPORT ---
EXAM DESCRIPTION: RAD - Foot Left 3 View - 10/17/2021 12:38 pm CLINICAL HISTORY: PAIN COMPARISON: Foot Left 3 View dated 06/08/2018; Foot Left 3 View dated 04/22/2018 FINDINGS: Previous great toe amputation noted. There is soft tissue swelling and mild soft tissue ai r seen in the region of the stump. Destructive changes with heterotopic bone is seen involving the mi dshaft of the second metatarsal. Destructive changes in subluxation present involving the distal seco nd metatarsal and second MTP joint. Destructive changes in subluxation also present third MTP joint. The findings are most compatible with a significant osteomyelitis.
--- NOTE | 2021-10-17 12:57 | ER ---
Nurse's Notes [facility] Name: Ej Jane Age: 46 yrs Sex: Male : 1975 Arrival Date: 10/17/2021 Time: 11:04 Bed 11 Private MD: Thiago Vargas Diagnosis: Osteomyelitis, unspecified;Other specified diabetes mellitus with foot ulcer Presentation: 10/17 11:41 Onset of symptoms was October 17, 2021. iw 11:41 Acuity: YOAV 3 iw Historical: - Allergies: 11:47 Sulfa (Sulfonamide Antibiotics); iw - Home Meds: 11:39 None [Active]; iw - PMHx: 11:39 Diabetes - NIDDM; iw Screenin:41 Abuse screen: Denies threats or abuse. Denies injuries from another. iw Assessment: 13:04 General: Appears uncomfortable, Behavior is calm, cooperative. Pain: Complains of pain iw in left foot. Neuro: Level of Consciousness is awake, obeys commands, Oriented to person, place, time, situation. Respiratory: Respiratory effort is even, unlabored. 18:33 Reassessment: Patient appears in no apparent distress at this time. Patient and/or iw family updated on plan of care and expected duration. Pain level reassessed. Patient is alert, oriented x 3, equal unlabored respirations, skin warm/dry/pink. 19:58 Reassessment: Patient appears in no apparent distress at this time. Patient and/or ld1 family updated on plan of care and expected duration. Pain level reassessed. Vital Signs: 11:42 BP 99 / 63; Pulse 100; Resp 16; Temp 97.9(O); Pulse Ox 100% on R/A; iw 16:39 BP 142 / 90; Pulse 68; Resp 16; Temp 98.3; Pulse Ox 98% on R/A; iw 19:58 BP 137 / 82; Pulse 86; Resp 18; Pulse Ox 99% on R/A; ld1 ED Course: 11:04 Patient arrived in ED. as 11:04 Thiago Vargas MD is Private Physician. as 11:07 Krista Mayberry NP is PHCP. aj3 11:08 Desmond Means DO is Attending Physician. aj3 11:41 Triage completed. iw 11:42 Leena Coleman, RN is Primary Nurse. iw 11:42 Arm band placed on. iw 11:55 Bed in low position. Call light in reach. tp1 11:55 Inserted saline lock: 20 gauge in right antecubital area, using aseptic technique. tp1 Blood collected. 12:40 Foot Left 3 View XRAY In Process Unspecified. EDMS 12:55 Sujtaa Vogel MD is Hospitalizing Provider. aj3 18:52 No provider procedures requiring assistance completed. Patient admitted, IV remains in iw place. 19:12 Primary Nurse role handed off by Leena Coleman, RN kj1 19:58 Maggi Bradley, RN is Primary Nurse. ld1 Administered Medications: 14:52 Drug: Zosyn (piperacillin-tazobactam) 3.375 grams Route: IVPB; Infused Over: 60 mins; iw Site: right forearm; 15:40 Follow up: IV Status: Completed infusion iw 15:10 Drug: vancoMYCIN 1 grams Route: IVPB; Infused Over: 2 hrs; Site: right forearm; iw 18:00 Follow up: IV Status: Completed infusion iw 18:51 Not Given (pt asleep): morphine 4 mg IVP once over 4 mins iw Outcome: 12:56 Decision to Hospitalize by Provider. aj3 19:59 Admitted to Med/surg accompanied by tech, via wheelchair, room 410, Report called to melissa Juarez RN 19:59 Condition: stable 19:59 Instructed on the need for admit. 20:14 Patient left the ED. ld1 Signatures: Dispatcher [employer] Lucía Armendariz as Leena Coleman RN RN Orly Montelongo kj1 Maggi Bradley RN RN [email or web address] Lucy Abreu tp1 Krista Mayberry, CARTON MAKING MACHINE OPERATOR CARTON MAKING MACHINE OPERATOR aj3 Corrections: (The following items were deleted from the chart) 11:47 11:39 Allergies: No Known Allergies; iw iw 1147 11:39 PMHx: Diabetes - NIDDM; aj3 aj3 11:47 11:42 BP 99 / 63; Pulse 100bpm; Resp 16bpm; Pulse Ox 100% RA; iw iw
--- NOTE | 2021-10-17 12:57 | EDPHYS ---
Physician Documentation [facility] Name: Ej Jane Age: 46 yrs Sex: Male : 1975 Arrival Date: 10/17/2021 Time: 11:04 Bed 11 Private MD: Thiago Vargas ED Physician Desmond Means HPI: 10/17 11:35 This 46 yrs old Male presents to ER via Ambulatory with complaints of Wound aj3 Check - infection L foot. 11:35 The affected area is on the left foot. Patient presenting with worsening left foot aj3 pain/swelling and drainage over the past 2 to 3 months. He has been noncompliant with his diabetes medications due to not seeing his previous doctor over the last year. He has previous amputations to left great toe and tip of the left second toe. The pain radiates up his left lower leg.. 11:44 Progress: The patient reports increased drainage, pain, redness, swelling. The patient aj3 has not recently seen a physician. Historical: - Allergies: 11:47 Sulfa (Sulfonamide Antibiotics); iw - Home Meds: 11:39 None [Active]; iw - PMHx: 11:39 Diabetes - NIDDM; iw ROS: 11:46 Constitutional: Negative for fever, chills, and weight loss, Cardiovascular: Negative aj3 for chest pain, palpitations, and edema, Respiratory: Negative for shortness of breath, cough, wheezing, and pleuritic chest pain, Abdomen/GI: Negative for abdominal pain, nausea, vomiting, diarrhea, and constipation, Neuro: Negative for syncope, headache, weakness, numbness, tingling, and seizure. 11:46 MS/extremity: Positive for erythema, pain, swelling, tenderness, warmth. 11:46 Skin: Positive for discoloration, erythema, wound and drainage. Exam: 11:46 Constitutional: This is a well developed, well nourished patient who is awake, alert, aj3 and in no acute distress. Neck: Trachea midline, no thyromegaly or masses palpated, and no cervical lymphadenopathy. Supple, full range of motion without nuchal rigidity, or vertebral point tenderness. No Meningismus. Cardiovascular: Regular rate and rhythm with a normal S1 and S2. No gallops, murmurs, or rubs. Normal PMI, no JVD. No pulse deficits. Respiratory: Lungs have equal breath sounds bilaterally, clear to auscultation and percussion. No rales, rhonchi or wheezes noted. No increased work of breathing, no retractions or nasal flaring. Abdomen/GI: Soft, non-tender, with normal bowel sounds. No distension or tympany. No guarding or rebound. No evidence of tenderness throughout. Psych: Awake, alert, with orientation to person, place and time. Behavior, mood, and affect are within normal limits. 11:46 Musculoskeletal/extremity: Extremities: grossly normal except: erythema, pain, swelling, tenderness, to left foot, DVT Exam: No signs of deep vein thrombosis. 11:46 Skin: multiple wounds and drainage to sole of his L foot and at site of previous amputation by L great toe.. Vital Signs: 11:42 BP 99 / 63; Pulse 100; Resp 16; Temp 97.9(O); Pulse Ox 100% on R/A; iw 16:39 BP 142 / 90; Pulse 68; Resp 16; Temp 98.3; Pulse Ox 98% on R/A; iw 19:58 BP 137 / 82; Pulse 86; Resp 18; Pulse Ox 99% on R/A; ld1 MDM: 11:08 Patient medically screened. aj3 11:52 Differential diagnosis: cellulitis, Necrotizing fasciitis, osteomyelitis, diabetic aj3 wound. 13:30 Counseling: I had a detailed discussion with the patient and/or guardian regarding: the aj3 historical points, exam findings, and any diagnostic results supporting the discharge/admit diagnosis, lab results, radiology results, the need for further work-up and treatment in the hospital. Physician consultation: Trent Peters MD was called at 13:25, was contacted at 13:25, regarding consult. ED course: Will admit patient to hospitalist for osteomyelitis of left foot. Patient admitted to Dr. Higgins and consulted Dr. Peters for general surgery. Antibiotics ordered. 13:30 Data reviewed: vital signs, nurses notes, old medical records, lab test result(s), aj3 radiologic studies, and as a result, I will admit patient, administer antibiotics administer IV fluids. 10/17 11:35 Order name: Blood Culture Adult (2) [facility] 10/17 11:35 Order name: CBC with Diff; Complete Time: 12:53 10/17 11:35 Order name: CMP; Complete Time: 12:53 10/17 11:35 Order name: Lactate; Complete Time: 12:53 [facility] 10/17 11:35 Order name: Protime (+inr); Complete Time: 12:53 [facility] 10/17 11:35 Order name: Ptt, Activated; Complete Time: 12:53 [facility] 10/17 13:04 Order name: COVID-19 SARS RT PCR (Document "Date of Onset" if Symptomatic) [facility] 10/17 13:27 Order name: Sedimentation Rate, Westergren; Complete Time: 14:49 [facility] 10/17 13:27 Order name: CBC with Automated Diff [facility] 10/17 13:27 Order name: CBC with Automated Diff [facility] 10/17 13:27 Order name: Comprehensive Metabolic Panel [facility] 10/17 13:27 Order name: Comprehensive Metabolic Panel [facility] 10/17 13:27 Order name: Magnesium [facility] 10/17 13:27 Order name: Magnesium [facility] 10/17 11:35 Order name: Accucheck; Complete Time: 12:21 10/17 11:35 Order name: Cardiac monitoring; Complete Time: 12:21 10/17 11:35 Order name: IV Saline Lock - Large Bore; Complete Time: 11:55 [facility] 10/17 11:35 Order name: O2 Sat Monitoring; Complete Time: 12:21 [facility] 10/17 11:35 Order name: Foot Left 3 View XRAY; Complete Time: 12:53 [facility] 10/17 13:27 Order name: CONS Physician Consult [facility] 10/17 13:27 Order name: NPO [facility] 10/17 13:27 Order name: Phosphorus [facility] 10/17 13:27 Order name: Phosphorus [facility] 10/17 13:27 Order name: Procalcitonin [facility] 10/17 13:27 Order name: Procalcitonin [facility] 10/17 13:34 Order name: consult Order-Trent Peters MD (GENERAL SURGERY); Complete Time: 13:36 [facility] 10/17 16:48 Order name: Diet Regular; Complete Time: 16:48 iw Administered Medications: 14:52 Drug: Zosyn (piperacillin-tazobactam) 3.375 grams Route: IVPB; Infused Over: 60 mins; iw Site: right forearm; 15:40 Follow up: IV Status: Completed infusion iw 15:10 Drug: vancoMYCIN 1 grams Route: IVPB; Infused Over: 2 hrs; Site: right forearm; iw 18:00 Follow up: IV Status: Completed infusion iw 18:51 Not Given (pt asleep): morphine 4 mg IVP once over 4 mins iw Disposition: 22:05 Co-signature as Attending Physician, Desmond Means DO I was immediately available on-site ms3 in the Emergency Department for consultation in the care of the patient. . Disposition Summary: 10/17/21 12:56 Hospitalization Ordered Hospitalization Status: Inpatient Admission aj3 Provider: Sujata Vogel aj3 Location: Telemetry/MedSurg (Inpatient) aj3 Condition: Stable aj3 Problem: new aj3 Symptoms: are unchanged aj3 Bed/Room Type: Standard aj3 Room Assignment: 410(10/17/21 19:07) cg Diagnosis - Osteomyelitis, unspecified aj3 - Other specified diabetes mellitus with foot ulcer aj3 Forms: - Medication Reconciliation Form aj3 - SBAR form aj3 Signatures: Dispatcher [employer] Leena Mcgovern RN RN iw Krys Ramirez RN RN Desmond Melo DO DO ms3 Krista Mayberry, DIRECTOR OF GUIDANCE DIRECTOR OF GUIDANCE aj3 Corrections: (The following items were deleted from the chart) 11:47 11:39 Allergies: No Known Allergies; iw iw 11:47 11:39 PMHx: Diabetes - NIDDM; aj3 aj3 11:50 11:46 Skin: Positive for discoloration, erythema, wound and drainage to sole of his L aj3 foot and at site of previous amputation by L great toe., aj3 12:57 12:56 Diabetes mellitus due to underlying condition with foot ulcer aj3 aj3 19:07 12:56 aj3 cg
[2021-10-17] MEDS ORDERED: ACETAMINOPHEN 500 MG TAB PO PRN (13:20)
[2021-10-17] MEDS ORDERED: ONDANSETRON 4 MG/2 ML VIAL IV PRN (13:20)
[2021-10-17] MEDS ORDERED: VANCOMYCIN 1 GM/VIAL ONE (14:42)
[2021-10-17] MEDS ORDERED: NA CHLORIDE 0.9% 250 ML ONE (14:42)
[2021-10-17] MEDS ORDERED: MORPHINE 4 MG/ML SYR ONE (14:42)
[2021-10-17] MEDS ORDERED: PIPERACIL/TAZO 3.375 GM VIAL IV ONE (14:42)
[2021-10-17] MEDS ORDERED: NA CHLORIDE 0.9% 100 ML ONE (14:43)
[2021-10-17] MEDS ORDERED: VANCOMYCIN 750 MG in NA CHLORIDE 0.9% 150 ML IVPB ONE (15:15)
[2021-10-17] MEDS: Levofloxacin 750mg IV 750 MG/150 ML BAG IV SCH ×2 (17:00→21:00)
[2021-10-17] MEDS: NA CHLORIDE 0.9% 1,000 ML IV SCH (20:59)
[2021-10-17] MEDS ORDERED: VANCOMYCIN 1 GM in NA CHLORIDE 0.9% 250 ML IVPB SCH (21:00)
[2021-10-17 21:21] VITALS: BMI 23.1
[2021-10-18] MEDS ORDERED: VANCOMYCIN 1.25 GM in NA CHLORIDE 0.9% 250 ML IVPB SCH (03:00)
[2021-10-18] MEDS ORDERED: VANCOMYCIN 500 MG/VIAL ONE (03:17)
[2021-10-18] MEDS: NA CHLORIDE 0.9% 1,000 ML IV SCH ×3 (03:20→16:40)
[2021-10-18 04:10] LABS: Absolute Lymphocytes (CBC) 1.2 K/uL (0.7-4.9); Hematocrit 28.5 % (39.6-49.0); Lymphocytes % 16.9 % (15.3-44.8); MPV 6.6 fL (7.6-11.3); RBC Red Blood Cell Count 3.43 M/uL (4.33-5.43)
[2021-10-18 04:19] LABS: Albumin 2.2 g/dL (3.4-5.0); Bilirubin Total 0.3 mg/dL (0.2-1.0); Magnesium 1.7 mg/dL (1.8-2.4); Phosphorus 2.9 mg/dL (2.5-4.9); Potassium 4.1 mmol/L (3.5-5.1); Protein, Total 7.8 g/dL (6.4-8.2)
[2021-10-18] MEDS ORDERED: MAGNESIUM SULFATE 1 gm IVPB 1 GM/100 ML BAG IV ONE (06:40)
[2021-10-18] MEDS: ENOXAPARIN 40 MG/0.4 ML SQ SCH (08:40)
[2021-10-18] MEDS: HYDROMORPHONE HCL 1 MG/ML INJ IV PRN ×2 (09:23→21:33)
--- NOTE | 2021-10-18 10:20 | P.HP ---
Certification for Inpatient Patient admitted to: Inpatient With expected LOS: >2 Midnights Patient will require the following post-hospital care: None Practitioner: I am a practitioner with admitting privileges, knowledge of patient current condition, hospital course, and medical plan of care. Services: Services provided to patient in accordance with Admission requirements found in Title 42 Section 412.3 of the Code of Federal Regulations Patient History Date of Service: 10/17/21 Reason for admission: Left foot osteomyelitis History of Present Illness: Patient is a 46-year-old gentleman who has been dealing with diabetic foot ulcer for quite a while. Patient has been noncompliant with his treatment. Patient blood sugars have been poorly controlled. Patient is not really following up with his physician. Patient was brought in because he was having some drainage. Patient is x-ray revealed osteomyelitis. Patient will be admitted to the [facility] for IV antibiotic therapy. We will get an MRI of the foot as well. Surgery consultation. Allergies No Known Drug Allergies Allergy (Intermediate, Verified 06/08/18 21:27) Itching Home Medications: NK [No Home Meds] 10/17/21 - Past Medical/Surgical History Has patient received pneumonia vaccine in the past: No Diabetic: Yes -: Diabetes mellitus types 2 -: Toe amputation left great toe and second tip toe - Family History parents Medical History: Heart disease, Diabetes - Social History Smoking Status: Current every day smoker Alcohol use: No CD- Drugs: Yes Caffeine use: Yes Place of Residence: Home Review of Systems 10-point ROS is otherwise unremarkable Physical Examination - Vital Signs Temperature: 99.1 F Blood Pressure: 101/67 Pulse: 95 Respirations: 18 Pulse Ox (%): 99 - Physical Exam General: Alert, In no apparent distress, Oriented x3 HEENT: Atraumatic, PERRLA, Mucous membr. moist/pink, EOMI, Sclerae nonicteric Neck: Supple, 2+ carotid pulse no bruit, No LAD, Without JVD or thyroid abnormality Respiratory: Clear to auscultation bilaterally, Normal air movement Cardiovascular: Regular rate/rhythm, Normal S1 S2 Gastrointestinal: Normal bowel sounds, No tenderness Musculoskeletal: Erythema, Tenderness, Warmth Integumentary: No rashes Neurological: Normal gait, Normal speech, Normal strength at 5/5 x4 extr, Normal tone, Normal affect Lymphatics: No axilla or inguinal lymphadenopathy - Studies Laboratory Data (last 24 hrs) 10/17/21 11:51: PT 11.6, INR 1.05, APTT 29.1 10/17/21 11:51: Sodium 137, Potassium 3.7, BUN 19 H, Creatinine 0.94, Glucose 174 H, Total Bilirubin 0.3, AST 10 L, ALT 15, Alkaline Phosphatase 74 10/17/21 11:51: WBC 7.2, Hgb 10.2 L, Hct 30.5 L, Plt Count 317 Assessment & Plan - Problems (Diagnosis) (1) Cellulitis of left foot Current Visit: No Status: Acute (2) Diabetes with ulcer of foot Onset Date: 03/20/18 Current Visit: No Status: Acute Qualifiers: (3) Osteomyelitis Current Visit: No Status: Acute - Plan PLAN: 1. Continue with IV antibiotic 2. Continue with local wound care 3. Wound care consultation/surgical consultation 4. Gentle IV hydration 5. Monitor CBC 6. Strict blood sugar monitoring 7. Pain control 8. GI and DVT prophylaxis Discharge Plan: Home Plan to discharge in: Greater than 2 days - Advance Directives Does patient have a Living Will: No Does patient have a Durable POA for Healthcare: No - Code Status/Comfort Care Code Status Assessed: Yes Code Status: Full Code Critical Care: No Time Spent Managing PTS Care (In Minutes): 45
--- NOTE | 2021-10-18 10:21 | P.PN ---
Subjective Date of Service: 10/18/21 Subjective: No new changes, No C/O voiced, Improving Review of Systems 10-point ROS is otherwise unremarkable Physical Examination - Vital Signs Temperature: 99.1 F Blood Pressure: 101/67 Pulse: 95 Respirations: 18 Pulse Ox (%): 99 - Physical Exam General: Alert, In no apparent distress HEENT: Atraumatic, PERRLA, EOMI Neck: Supple, JVD not distended Respiratory: Clear to auscultation bilaterally, Normal air movement Cardiovascular: Regular rate/rhythm, Normal S1 S2 Gastrointestinal: Normal bowel sounds, No tenderness Musculoskeletal: Erythema, Tenderness, Warmth Integumentary: No rashes Neurological: Normal speech, Normal tone, Normal affect Lymphatics: No axilla or inguinal lymphadenopathy - Studies Laboratory Data (last 24 hrs) 10/17/21 11:51: PT 11.6, INR 1.05, APTT 29.1 10/17/21 11:51: Sodium 137, Potassium 3.7, BUN 19 H, Creatinine 0.94, Glucose 174 H, Total Bilirubin 0.3, AST 10 L, ALT 15, Alkaline Phosphatase 74 10/17/21 11:51: WBC 7.2, Hgb 10.2 L, Hct 30.5 L, Plt Count 317 Medications List Reviewed: Yes Assessment & Plan - Problems (Diagnosis) (1) Cellulitis of left foot Current Visit: No Status: Acute (2) Diabetes with ulcer of foot Onset Date: 03/20/18 Current Visit: No Status: Acute Qualifiers: (3) Osteomyelitis Current Visit: No Status: Acute - Plan PLAN: Continue with plan of care as mentioned below: 1. Continue with IV antibiotic 2. Continue with local wound care 3. Wound care consultation/surgical consultation 4. Gentle IV hydration 5. Monitor CBC 6. Strict blood sugar monitoring 7. Pain control 8. GI and DVT prophylaxis - Advance Directives Does patient have a Living Will: No Does patient have a Durable POA for Healthcare: No - Code Status/Comfort Care Code Status: Full Code
[2021-10-18] MEDS: Levofloxacin 750mg IV 750 MG/150 ML BAG IV SCH (13:56)
--- NOTE | 2021-10-18 14:17 | RAD REPORT ---
EXAM DESCRIPTION: MRI - Foot Left Wo Cont - 10/18/2021 1:41 pm CLINICAL HISTORY: Osteomyelitis COMPARISON: Foot Left 3 View dated 10/17/2021; Foot Left W/Wo Cont dated 04/23/2018; Foot Left 3 View dated 04/22/2018 FINDINGS: MR imaging was obtained of the foot without contrast using an osteomyelitis protocol. Partial amputation of the first toe at the level of the MTP joint. There has been surgical changes fr om amputation of the second and third toes at the middle phalanx and proximal phalanx, respectively. Pathologic fracture of the second metatarsal with diffuse edema throughout both the proximal and dist al fragments of the metatarsal. The fracture is mildly angulated. Heterotopic calcification is noted. This would suggest a chronic process as well. Cortical destruction is noted. There is extensive moises a. There is also edema within the third metatarsal head with erosive changes. The fourth and fifth to es are intact. Mild edema is noted in the head of the first metatarsal. No abscess. IMPRESSION: 1. Pathologic fracture with osteomyelitis of the entire second metatarsal. 2. Increased edema at the first and third metatarsal heads could represent early osteomyelitis. 3. No abscess identified.
--- NOTE | 2021-10-18 15:16 | P.CNS ---
Date of Consult: 10/18/21 PC: This 46-year-old male presented to the emergency room with pain and drainage from the second toe of his left foot. HPC: Apparently the drainage has been there for a while. Recently dropped something on his toe. Wound has been getting worse, and he was concerned. PSHx: Previous amputation of phalanx of the great toe. Other surgeries for diabetic ulcers. PMHx: Insulin-dependent diabetes Social Hx: Denies any allergies Sys R: No cough, wheeze, shortness of breath. Denies any chest pain or palpitations at the current time. Denies any urinary complaints. Is able to walk normally. O/E: Wake alert vital signs are stable, not in any acute distress but is hungry HEENT: Within normal limits Chest: Air entry equal bilaterally Abd: Soft nontender Reynolds: On inspection of the left foot, patient has amputation of the phalanx of his great toe. There are 2 areas with purulent drainage coming from them in the webs of the first second and second and third toes. Has mild erythema over this area. Data: MRI suggests osteo as does plain film Impression: Fracture with osteomyelitis of the second metatarsal left foot. This is very unlikely to heal, will require surgery at some point. Plan: I have explained to the patient the current situation involving his foot. He has fracture as well as osteomyelitis in this area. We have discussed the various options including long-term IV antibiotic therapy. We have opted to tomorrow open this area up, take out the bone from the second metatarsal. We will clean out this cavity. He will also lose the second phalanx at that time. We will allow this wound to heal and then later down the line if need be try and work with prosthetic shoes, or wound modification to get him a more functional foot. I have explained to him the risks of the surgery. The possibly of bleeding, infection, need for further surgeries and procedures. The fact that the may require a higher level of amputation was outlined. He understands, states that his mother had gone through similar processes with her diabetes. We will make him n.p.o. tonight at midnight and surgery for the morning. As an outpatient, he will be followed at the wound center. This helps [place] with [place] public bus [place]. We will ask for social media campaign manager consult as well.
[2021-10-18] MEDS: VANCOMYCIN 1.25 GM in NA CHLORIDE 0.9% 250 ML IVPB SCH (15:29)
[2021-10-19] MEDS: HYDROMORPHONE HCL 1 MG/ML INJ IV PRN ×4 (02:15→21:36)
[2021-10-19] MEDS: VANCOMYCIN 1.25 GM in NA CHLORIDE 0.9% 250 ML IVPB SCH (02:15)
[2021-10-19 02:28] LABS: Magnesium 1.8 mg/dL (1.8-2.4); Potassium 4.7 mmol/L (3.5-5.1)
[2021-10-19] MEDS ORDERED: MAGNESIUM SULFATE 1 gm IVPB 1 GM/100 ML BAG IV ONE (05:53)
[2021-10-19] MEDS: NA CHLORIDE 0.9% 1,000 ML IV SCH ×2 (06:00→21:54)
[2021-10-19] MEDS: ENOXAPARIN 40 MG/0.4 ML SQ SCH (08:17)
[2021-10-19] MEDS ORDERED: COLLAGENASE 30 GM OINTMENT TOP ONE (08:38)
[2021-10-19] MEDS ORDERED: propofoL 200 MG/20 ML VIAL IV ONE (08:58)
[2021-10-19] MEDS ORDERED: FENTANYL CITR 100 MCG/2 ML ONE (08:59)
[2021-10-19] MEDS ORDERED: MIDAZOLAM HCL 2 MG/2 ML INJ ONE (09:00)
[2021-10-19] MEDS ORDERED: LIDOCAINE 2% MPF 5 ML VIAL ONE (09:02)
[2021-10-19] MEDS ORDERED: ONDANSETRON 4 MG/2 ML VIAL ONE (09:02)
[2021-10-19] MEDS ORDERED: ROCURONIUM 50 MG/5 ML VIAL IV ONE (09:02)
[2021-10-19] MEDS ORDERED: EPHEDRINE SULF 50 MG/ML VIAL ONE (09:31)
[2021-10-19] MEDS ORDERED: Phenylephrine HCl 10 MG/ML 1 ML VIAL ONE (09:40)
[2021-10-19] MEDS: NA CHLORIDE 0.9% 1,000 ML ONE ×2 (10:00→10:31)
--- NOTE | 2021-10-19 10:21 | P.OP ---
Preoperative diagnosis: Osteomyelitis of the second metatarsal left foot Postoperative diagnosis: The same Primary procedure: Amputation of second toe left foot Secondary procedure: Removal of infected bone, second metatarsal Anesthesia: General Estimated blood loss: Less than 10 cc Specimen: Second metatarsal, second toe left foot Operative Technique: The patient brought the operating room and placed supine on the table. After the induction of adequate general endotracheal anesthesia, the area of the left foot was prepped with a Betadine solution, and was draped in usual aseptic manner. Attention was turned towards the second toe. Examination under anesthesia revealed that there is no connection between the distal phalanx and the metatarsal itself. A elliptical incision was made around the second toe, and the amputation was completed and the specimen was sent for histopathology. I turned attention to the head of the second metatarsal, a bone elevator was used to gently lift the tissue surrounding this. It literally fell out of the wound and obviously had osteomyelitis as well as necrotic nonviable bone. This tract now was cleared out using a curette. Chronic granulation tissue was removed. At the base of this the bone felt relatively solid. Attention was turned towards a sinus that came from the sole of the foot up into the area where the head of the metatarsal had been. We were able to place a Reginald- Avendaño drain into this hole where the metatarsal had been. This was brought out through the dorsum of the foot. The tissue on the outside was now approximated after using Silastic's buttresses to help anchor a 2-0 nylon. Tissue approximation having been achieved, the area was now packed with iodoform gauze, and a piece of Xeroform on top of it to provide for less air leak. A bulky dressing was then used to protect the foot. At the end the procedure the patient was in a stable condition was sent to the recovery room. Needle sponge instrument count were correct. 1 CHAPARRITA drain had been placed as mentioned. Complications: None Drain(s): CHAPARRITA drain Transferred to: Recovery Room Condition: Good
[2021-10-19] MEDS: Levofloxacin 750mg IV 750 MG/150 ML BAG IV SCH (13:19)
[2021-10-19] MEDS: HYDROCODONE/APAP 7.5/325 MG TAB PO PRN (15:41)
[2021-10-19] MEDS: VANCOMYCIN 1 GM in NA CHLORIDE 0.9% 250 ML IVPB SCH (15:42)
[2021-10-20] MEDS: VANCOMYCIN 1 GM in NA CHLORIDE 0.9% 250 ML IVPB SCH ×2 (03:36→15:20)
[2021-10-20] MEDS: HYDROMORPHONE HCL 1 MG/ML INJ IV PRN ×4 (03:37→20:34)
[2021-10-20 04:30] LABS: Magnesium 1.8 mg/dL (1.8-2.4); Potassium 3.8 mmol/L (3.5-5.1)
[2021-10-20] MEDS: NA CHLORIDE 0.9% 1,000 ML IV SCH ×2 (09:55→21:37)
[2021-10-20] MEDS: ENOXAPARIN 40 MG/0.4 ML SQ SCH (09:55)
--- NOTE | 2021-10-20 10:43 | P.CNS ---
Date of Consult: 10/20/21 Chief Complaint: Left foot osteomyelitis History of Present Illness: The patient is a 46-year-old male with a past medical history of diabetes type 2 uncontrolled, protein caloric malnutrition, and history of left great hallux osteomyelitis status post amputation who presented to the emergency department due to worsening pain/erythema/drainage of wound on left foot. Patient states that the wound has been ongoing for the past 2 months however most recently got worse. Patient has been unemployed for the past year and a half and as such has not been taking any of his medications for diabetes or has been following up with a physician. MRI obtained on showed osteomyelitis of the second toe and metatarsal with pathological fracture and increasing edema of the first and third metatarsal heads. He underwent a surgical debridement on 10/19 where he had a full amputation of the left second toe and partial amputation of the second metatarsal with a CHAPARRITA drain placed. Wound cultures grew methicillin susceptible staph and 1+ gram-negative rods. Patient was empirically placed on vancomycin and Levaquin. He currently denies nausea/vomiting/diarrhea/shortness of breath/chest pain. He reports pain to left foot. Allergies No Known Drug Allergies Allergy (Intermediate, Verified 06/08/18 21:27) Itching Home Medications: NK [No Home Meds] 10/17/21 - Past Medical/Surgical History Diabetic: Yes -: Diabetes mellitus types 2 -: Toe amputation left great toe and second tip toe - Family History parents Medical History: Heart disease, Diabetes - Social History Smoking Status: Unknown if ever smoked Alcohol use: No CD- Drugs: Yes Caffeine use: Yes Place of Residence: Home Review of Systems 10-point ROS is otherwise unremarkable Physical Examination Temp Pulse Resp BP Pulse Ox 97.0 F 86 16 119/78 99 10/20/21 08:00 10/20/21 08:00 10/20/21 08:00 10/20/21 08:00 10/20/21 08:00 General: Alert, In no apparent distress HEENT: Atraumatic Neck: Supple Respiratory: Clear to auscultation bilaterally Cardiovascular: Regular rate/rhythm Capillary refill: <2 Seconds Gastrointestinal: Normal bowel sounds, Soft and benign Musculoskeletal: No clubbing, No swelling Integumentary: Other (Left second foot wound with surgical dressing placed with CHAPARRITA drain) Conclusions/Impression: Antibiotics: Vancomycin: urrent Levaquin: 10/17current Assessment/plan Left second toe diabetic foot ulcer status post amputation Patient underwent amputation on 10/18 of second toe and partial second metatarsal. Per Dr. Peters all of the infected bone has been removed. Wound cultures growing methicillin susceptible staph and 1+ gram-negative rods. Recommend sending patient home on oral cefdinir for 10 to 14 days. Renal function stable, no need to renally adjust dose. Diabetes Recommend strict glucose monitoring for proper infection control/wound healing Protein caloric malnutrition: Moderate -Recommend supplemental Ensure protein drinks Plan of care discussed Dr. Caro Thank you for consultation
[2021-10-20] MEDS: HYDROCODONE/APAP 7.5/325 MG TAB PO PRN ×2 (11:29→17:07)
[2021-10-20] MEDS: Levofloxacin 750mg IV 750 MG/150 ML BAG IV SCH (13:25)
[2021-10-21] MEDS: HYDROCODONE/APAP 7.5/325 MG TAB PO PRN ×3 (00:14→21:12)
[2021-10-21] MEDS: HYDROMORPHONE HCL 1 MG/ML INJ IV PRN ×3 (01:40→16:33)
[2021-10-21] MEDS: VANCOMYCIN 1 GM in NA CHLORIDE 0.9% 250 ML IVPB SCH (03:17)
[2021-10-21] MEDS: NA CHLORIDE 0.9% 1,000 ML IV SCH ×2 (04:34→22:38)
[2021-10-21 07:50] LABS: Magnesium 1.8 mg/dL (1.8-2.4); Potassium 3.8 mmol/L (3.5-5.1)
[2021-10-21] MEDS ORDERED: MAGNESIUM SULFATE 1 gm IVPB 1 GM/100 ML BAG IV ONE (09:00)
[2021-10-21] MEDS ORDERED: POTASSIUM CL SA 10 MEQ TAB PO ONE (09:00)
[2021-10-21] MEDS ORDERED: CEFTRIAXONE 2,000 MG in NA CHLORIDE 0.9% 100 ML IV SCH (09:00)
[2021-10-21] MEDS: ENOXAPARIN 40 MG/0.4 ML SQ SCH (09:18)
[2021-10-21] MEDS: CEFAZOLIN SODIUM 2 GM in NA CHLORIDE 0.9% 100 ML IVPB SCH ×2 (10:33→17:07)
[2021-10-21] MEDS: Levofloxacin 750mg IV 750 MG/150 ML BAG IV SCH (13:15)
[2021-10-22] MEDS: CEFAZOLIN SODIUM 2 GM in NA CHLORIDE 0.9% 100 ML IVPB SCH ×3 (00:25→17:16)
[2021-10-22] MEDS: HYDROMORPHONE HCL 1 MG/ML INJ IV PRN (00:38)
[2021-10-22 04:11] LABS: Magnesium 1.7 mg/dL (1.8-2.4); Potassium 3.7 mmol/L (3.5-5.1)
[2021-10-22] MEDS: HYDROCODONE/APAP 7.5/325 MG TAB PO PRN ×2 (06:13→22:26)
[2021-10-22] MEDS ORDERED: MAGNESIUM SULFATE 1 gm IVPB 1 GM/100 ML BAG IV ONE (08:00)
[2021-10-22] MEDS: ENOXAPARIN 40 MG/0.4 ML SQ SCH (08:16)
[2021-10-22] MEDS ORDERED: POTASSIUM CL SA 10 MEQ TAB PO ONE (09:00)
[2021-10-22] MEDS: Levofloxacin 750mg IV 750 MG/150 ML BAG IV SCH (13:35)
[2021-10-22] MEDS: NA CHLORIDE 0.9% 1,000 ML IV SCH (13:35)
[2021-10-22 21:45] VITALS: O2SAT 100
[2021-10-23] MEDS: CEFAZOLIN SODIUM 2 GM in NA CHLORIDE 0.9% 100 ML IVPB SCH ×3 (00:17→17:00)
--- NOTE | 2021-10-23 01:04 | P.PN ---
Date of Service: 10/22/21 Subjective Subjective: Patient to be seen by surgery in the morning. Wound care will be done at bedside and then anticipate discharge in a.m. patient will need outpatient follow-up with wound healing center. Infectious disease has been following the patient and they recommend discharge on oral antibiotics. Review of Systems 10-point ROS is otherwise unremarkable Physical Examination - Vital Signs Reviewed - Physical Exam General: Alert, In no apparent distress Respiratory: Clear to auscultation bilaterally, Normal air movement Cardiovascular: Regular rate/rhythm, Normal S1 S2 Gastrointestinal: Normal bowel sounds, No tenderness Musculoskeletal: Erythema, Tenderness, Warmth Neurological: Normal speech, Normal tone, Normal affect Assessment & Plan - Problems (Diagnosis) (1) Cellulitis of left foot Current Visit: No Status: Acute (2) Diabetes with ulcer of foot Onset Date: 03/20/18 Current Visit: No Status: Acute Qualifiers: (3) Osteomyelitis Current Visit: No Status: Acute - Plan Continue with plan of care as mentioned below: 1. Continue with IV antibiotic 2. Continue with local wound care 3. Wound care consultation/surgical consultation appreciated 4. Gentle IV hydration 5. Monitor CBC 6. Strict blood sugar monitoring 7. Pain control 8. GI and DVT prophylaxis - Advance Directives Does patient have a Living Will: No Does patient have a Durable POA for Healthcare: No - Code Status/Comfort Care Code Status: Full Code
--- NOTE | 2021-10-23 01:04 | P.PN ---
Date of Service: 10/21/21 Subjective Subjective: Patient doing well. No new complaints Review of Systems 10-point ROS is otherwise unremarkable Physical Examination - Vital Signs Reviewed - Physical Exam General: Alert, In no apparent distress Respiratory: Clear to auscultation bilaterally, Normal air movement Cardiovascular: Regular rate/rhythm, Normal S1 S2 Gastrointestinal: Normal bowel sounds, No tenderness Musculoskeletal: Erythema, Tenderness, Warmth Neurological: Normal speech, Normal tone, Normal affect Assessment & Plan - Problems (Diagnosis) (1) Cellulitis of left foot Current Visit: No Status: Acute (2) Diabetes with ulcer of foot Onset Date: 03/20/18 Current Visit: No Status: Acute Qualifiers: (3) Osteomyelitis Current Visit: No Status: Acute - Plan Continue with plan of care as mentioned below: 1. Continue with IV antibiotic 2. Continue with local wound care 3. Wound care consultation/surgical consultation appreciated 4. Gentle IV hydration 5. Monitor CBC 6. Strict blood sugar monitoring 7. Pain control 8. GI and DVT prophylaxis - Advance Directives Does patient have a Living Will: No Does patient have a Durable POA for Healthcare: No - Code Status/Comfort Care Code Status: Full Code
--- NOTE | 2021-10-23 01:05 | P.PN ---
Date of Service: 10/20/21 Subjective Subjective: Patient is doing much better. Clinical symptoms continue to show improvement. Patient still with pain of the left foot. Continues to heal. Continue with antibiotic therapy. Review of Systems 10-point ROS is otherwise unremarkable Physical Examination - Vital Signs Reviewed - Physical Exam General: Alert, In no apparent distress Respiratory: Clear to auscultation bilaterally, Normal air movement Cardiovascular: Regular rate/rhythm, Normal S1 S2 Gastrointestinal: Normal bowel sounds, No tenderness Musculoskeletal: Erythema, Tenderness, Warmth Neurological: Normal speech, Normal tone, Normal affect Assessment & Plan - Problems (Diagnosis) (1) Cellulitis of left foot Current Visit: No Status: Acute (2) Diabetes with ulcer of foot Onset Date: 03/20/18 Current Visit: No Status: Acute (3) Osteomyelitis Current Visit: No Status: Acute - Plan Continue with plan of care as mentioned below: 1. Continue with IV antibiotic 2. Continue with local wound care 3. Wound care consultation/surgical consultation appreciated 4. Gentle IV hydration 5. Monitor CBC 6. Strict blood sugar monitoring 7. Pain control 8. GI and DVT prophylaxis - Advance Directives Does patient have a Living Will: No Does patient have a Durable POA for Healthcare: No - Code Status/Comfort Care Code Status: Full Code
--- NOTE | 2021-10-23 01:06 | P.PN ---
Date of Service: 10/19/21 Subjective Subjective: Patient taken to the OR. Status post surgical debridement. Amputation of the second metatarsal which had osteomellitus. Continue with wound care at bedside. Review of Systems 10-point ROS is otherwise unremarkable Physical Examination - Vital Signs Reviewed - Physical Exam General: Alert, In no apparent distress Respiratory: Clear to auscultation bilaterally, Normal air movement Cardiovascular: Regular rate/rhythm, Normal S1 S2 Gastrointestinal: Normal bowel sounds, No tenderness Musculoskeletal: Erythema, Tenderness, Warmth; still having severe amount of pain Neurological: Normal speech, Normal tone, Normal affect Assessment & Plan - Problems (Diagnosis) (1) Cellulitis of left foot Current Visit: No Status: Acute (2) Diabetes with ulcer of foot Onset Date: 03/20/18 Current Visit: No Status: Acute (3) Osteomyelitis Current Visit: No Status: Acute - Plan Continue with plan of care as mentioned below: 1. Continue with IV antibiotic 2. Continue with local wound care 3. Wound care consultation/surgical consultation appreciated 4. Gentle IV hydration 5. Monitor CBC 6. Strict blood sugar monitoring 7. Pain control 8. GI and DVT prophylaxis - Advance Directives Does patient have a Living Will: No Does patient have a Durable POA for Healthcare: No - Code Status/Comfort Care Code Status: Full Code
[2021-10-23] MEDS: HYDROMORPHONE HCL 1 MG/ML INJ IV PRN (01:40)
[2021-10-23] MEDS: NA CHLORIDE 0.9% 1,000 ML IV SCH ×2 (03:39→16:40)
[2021-10-23 03:50] LABS: Absolute Lymphocytes (CBC) 1.9 K/uL (0.7-4.9); Hematocrit 29.9 % (39.6-49.0); Lymphocytes % 27.6 % (15.3-44.8); MPV 6.6 fL (7.6-11.3)
[2021-10-23 04:03] LABS: Magnesium 1.9 mg/dL (1.8-2.4); Potassium 3.7 mmol/L (3.5-5.1)
[2021-10-23] MEDS: ENOXAPARIN 40 MG/0.4 ML SQ SCH (07:54)
[2021-10-23] MEDS ORDERED: POTASSIUM CL SA 10 MEQ TAB PO ONE (09:00)
[2021-10-23] MEDS: HYDROCODONE/APAP 7.5/325 MG TAB PO PRN ×2 (09:05→14:23)
--- NOTE | 2021-10-23 11:52 | P.PN ---
Subjective Date of Service: 10/23/21 Chief Complaint: Left foot osteomyelitis Patient seen and examined at bedside, CHAPARRITA drain has apparently fallen out of the wound. Review of Systems 10-point ROS is otherwise unremarkable Physical Examination - Vital Signs Temperature: 97.7 F Blood Pressure: 107/76 Pulse: 94 Respirations: 16 Pulse Ox (%): 100 - Studies Laboratory Last Values WBC 7.2 K/uL (4.3-10.9) 10/17/21 11:51 RBC 3.61 M/uL (4.33-5.43) L 10/17/21 11:51 Hgb 10.2 g/dL (13.6-17.9) L 10/17/21 11:51 Hct 30.5 % (39.6-49.0) L 10/17/21 11:51 MCV 84.5 fL (80-100) D 10/17/21 11:51 MCH 28.4 pg (27.0-35.0) D 10/17/21 11:51 MCHC 33.6 g/dL (32.0-36.0) 10/17/21 11:51 RDW 13.9 % (12.1-15.2) 10/17/21 11:51 Plt Count 317 K/uL (152-406) 10/17/21 11:51 MPV 6.4 fL (7.6-11.3) L 10/17/21 11:51 Neutrophils % 59.1 % (41.7-73.7) 10/17/21 11:51 Lymphocytes % 26.3 % (15.3-44.8) 10/17/21 11:51 Monocytes % 10.7 % (3.3-12.3) 10/17/21 11:51 Eosinophils % 3.5 % (0-4.4) 10/17/21 11:51 Basophils % 0.4 % (0-1.3) 10/17/21 11:51 Absolute Neutrophils 4.2 K/uL (1.8-8.0) 10/17/21 11:51 Absolute Lymphocytes 1.9 K/uL (0.7-4.9) 10/17/21 11:51 Absolute Monocytes 0.8 K/uL (0.1-1.3) 10/17/21 11:51 Absolute Eosinophils 0.3 K/uL (0-0.5) 10/17/21 11:51 Absolute Basophils 0.0 K/uL (0-0.5) 10/17/21 11:51 ESR Westergren 17 mm/HR (0-15) H 10/17/21 11:51 PT 11.6 SECONDS (9.5-12.5) 10/17/21 11:51 INR 1.05 10/17/21 11:51 APTT 29.1 SECONDS (24.3-36.9) 10/17/21 11:51 Sodium 137 mmol/L (136-145) 10/17/21 11:51 Potassium 3.7 mmol/L (3.5-5.1) 10/17/21 11:51 Chloride 104 mmol/L (98-107) 10/17/21 11:51 Carbon Dioxide 27 mmol/L (21-32) 10/17/21 11:51 Anion Gap 9.7 mEq/L (5.0-15.0) 10/17/21 11:51 BUN 19 mg/dL (7-18) H 10/17/21 11:51 Creatinine 0.94 mg/dL (0.55-1.3) 10/17/21 11:51 Est GFR (CKD-EPI) 101 ml/min (=/>90) 10/17/21 11:51 Glucose 174 mg/dL (74-106) H 10/17/21 11:51 Lactic Acid 1.3 mmol/L (0.4-2.0) 10/17/21 11:51 Calcium 8.5 mg/dL (8.5-10.1) 10/17/21 11:51 Total Bilirubin 0.3 mg/dL (0.2-1.0) 10/17/21 11:51 AST 10 U/L (15-37) L 10/17/21 11:51 ALT 15 U/L (12-78) 10/17/21 11:51 Alkaline Phosphatase 74 U/L (45-117) 10/17/21 11:51 Serum Total Protein 7.8 g/dL (6.4-8.2) 10/17/21 11:51 Albumin 2.4 g/dL (3.4-5.0) L 10/17/21 11:51 Globulin 5.4 g/dL (2.3-3.5) H 10/17/21 11:51 Albumin/Globulin Ratio 0.4 (1.1-1.8) L 10/17/21 11:51 Procalcitonin 0.10 ng/mL (<0.050) H 10/17/21 11:51 Microbiology Data (last 24 hrs): 10/17/21 11:41 Blood - Blood Aerobic Blood Culture - Final No growth in 5 days. 10/17/21 11:41 Blood - Blood Anaerobic Blood Culture - Final No growth in 5 days. 10/17/21 11:41 Blood - Blood Aerobic Blood Culture - Final No growth in 5 days. 10/17/21 11:41 Blood - Blood Anaerobic Blood Culture - Final No growth in 5 days. Medications List Reviewed: Yes Assessment And Plan - Plan Physical exam: General: Alert, In no apparent distress HEENT: Atraumatic Neck: Supple Respiratory: Clear to auscultation bilaterally Cardiovascular: Regular rate/rhythm Capillary refill: <2 Seconds Gastrointestinal: Normal bowel sounds, Soft and benign Musculoskeletal: No clubbing, No swelling Integumentary: Other (Left second foot wound with surgical dressing placed with CHAPARRITA drain) Conclusions/Impression: Antibiotics: cefazolin: 10/21-current Levaquin: 10/17current Assessment/plan Left second toe diabetic foot ulcer status post amputation Patient underwent amputation on 10/18 of second toe and partial second metatarsal. Pathology report demonstrated clear margins. Wound cultures growing methicillin susceptible staph and Klebsiella oxytoca. Recommend discharging patient home on oral Levaquin x10 days. Diabetes Recommend strict glucose monitoring for proper infection control/wound healing Protein caloric malnutrition: Moderate -Recommend supplemental Ensure protein drinks Plan of care discussed Dr. Caro Thank you for consultation
[2021-10-23] MEDS: Levofloxacin 750mg IV 750 MG/150 ML BAG IV SCH (13:14)
--- NOTE | 2021-10-23 14:38 | P.PN ---
Date of Service: 10/23/21 S: Patient is no specific complaints. Complaining of some burning down in his wounds. Currently taking hydrocodone. O: CHAPARRITA drain came out, iodoform gauze removed from the wound. Edema around the area where the's first and second toe were has gone down dramatically. Our stay sutures are actually not under tension anymore. Wound is clean, no drainage. A: Surgical wound looks much improved. Swelling and edema of the foot has resolved. Wounds are open but look clean. P: The patient will be discharged today. We will keep on oral antibiotics for approximately 10 days. I will write a prescription for some pain medicine for him. I have asked him to follow-up with us at the wound care center, we will see him next Saturday. He is agreeable with this plan. Should there be any changes in the wound, or he has any questions, he is more than welcome to contact me.
--- NOTE | 2021-10-23 17:20 | P.DS ---
Admission Date: 10/17/21 Discharge Date: 10/23/21 Disposition: ROUTINE DISCHARGE Discharge Condition: GOOD Reason for Admission: Left foot osteomyelitis Consultations: General surgery, Infectious disease specialist. Brief History of Present Illness: Patient is a 46-year-old gentleman who has been dealing with diabetic foot ulcer for quite a while. Patient has been noncompliant with his treatment. Patient blood sugars have been poorly controlled. Patient is not really following up with his physician. Patient was brought in because he was having some drainage. Patient is x-ray revealed osteomyelitis. Patient will be admitted to the hospital for IV antibiotic therapy. We will get an MRI of the foot as well. Surgery consultation. Hospital Course: He was admitted to the inpatient service for wound debridement, and work-up for possible osteomyelitis. He had surgeon and infectious disease specialist consulted. Over the course of his hospital stay, there was decision to have a midfoot amputation because of concerns for osteomyelitis and he also had wound culture and he had wound care on board. He was deemed to be in need of oral antibiotic since he does not have significant resources for her IV therapy on her basis. He was properly taken care of by surgeon and wound care recommendations were given. ID specialist recommended oral Levaquin therapy for 10-day posthospital discharge and he will follow-up with specialist as scheduled post hospital discharge care. Instructions on wound care given. Vital Signs/Physical Exam: Temp Pulse Resp BP Pulse Ox 97.7 F 95 H 18 110/73 100 10/23/21 12:00 10/23/21 12:00 10/23/21 14:23 10/23/21 12:00 10/23/21 14:23 General: Alert, Oriented x3 HEENT: Atraumatic, Normocephalic Neck: Supple Respiratory: Normal air movement Cardiovascular: Regular rate/rhythm, Normal S1 S2 Gastrointestinal: Soft and benign Integumentary: Other (left foot wound dressed in bandaid.) Neurological: Normal speech Laboratory Data at Discharge: WBC 6.9 K/uL (4.3-10.9) 10/23/21 03:05 Hgb 10.6 g/dL (13.6-17.9) L 10/23/21 03:05 Hct 29.9 % (39.6-49.0) L 10/23/21 03:05 Plt Count 276 K/uL (152-406) 10/23/21 03:05 PT 11.6 SECONDS (9.5-12.5) 10/17/21 11:51 INR 1.05 10/17/21 11:51 APTT 29.1 SECONDS (24.3-36.9) 10/17/21 11:51 Sodium 136 mmol/L (136-145) 10/23/21 03:05 Potassium 3.7 mmol/L (3.5-5.1) 10/23/21 03:05 BUN 14 mg/dL (7-18) 10/23/21 03:05 Creatinine 0.84 mg/dL (0.55-1.3) 10/23/21 03:05 Glucose 138 mg/dL (74-106) H 10/23/21 03:05 Phosphorus 2.9 mg/dL (2.5-4.9) 10/18/21 03:00 Magnesium 1.9 mg/dL (1.8-2.4) 10/23/21 03:05 Total Bilirubin 0.3 mg/dL (0.2-1.0) 10/18/21 03:00 AST 8 U/L (15-37) L 10/18/21 03:00 ALT 14 U/L (12-78) 10/18/21 03:00 Alkaline Phosphatase 71 U/L (45-117) 10/18/21 03:00 Home Medications: Hydrocodone 7.5/APAP 325 [[place] 7.5/325 mg*] 1 tab PO Q6H PRN tab 10/23/21 levoFLOXacin [Levaquin] 750 mg PO DAILY 10 Days #10 tab 10/23/21 New Medications: levoFLOXacin [Levaquin] 750 mg PO DAILY 10 Days #10 tab Diet: ADA Activity: Fall precautions Followup: Thiago Vargas MD [Primary Care Provider] - 1-2 Weeks (call to schedule an appointment) Trent Peters MD [ACTIVE - CAN ADMIT] - 1 Week (CAll to schedule an appointment)
[2021-10-23 20:06] VITALS: BP 97/64; TEMP 97.5
== END 2021-10-23 19:45 | disposition home or self-care (01) | DRG 617 ==
LOC: ER 11:02 → ERHOLD 13:20 → 4TH 20:00
PROVIDERS: ADMIT Hospitalist; ATTEND Hospitalist
PROC: 0Y6S0Z0 Detachment at Left 2nd Toe, Complete, Open Approach (ICD-10-PCS; principal; 2021-10-19 09:00)
DX: E11.69 Type 2 diabetes mellitus with other specified complication (principal); M86.172 Other acute osteomyelitis, left ankle and foot; E44.0 Moderate protein-calorie malnutrition; L03.116 Cellulitis of left lower limb; E11.65 Type 2 diabetes mellitus with hyperglycemia; B95.61 Methicillin susceptible Staphylococcus aureus infection as the cause of diseases classified elsewhere; Z68.23 Body mass index [BMI] 23.0-23.9, adult; S92.322A Displaced fracture of second metatarsal bone, left foot, initial encounter for closed fracture; E11.621 Type 2 diabetes mellitus with foot ulcer; L97.529 Non-pressure chronic ulcer of other part of left foot with unspecified severity; W22.8XXA Striking against or struck by other objects, initial encounter; F17.210 Nicotine dependence, cigarettes, uncomplicated; Z89.412 Acquired absence of left great toe; Z91.19 Patient's noncompliance with other medical treatment and regimen; Z20.822 Contact with and (suspected) exposure to COVID-19
CPT/HCPCS: 36415; 80048; 80053; 80202; 82947; 83605; 83735; 84100; 84145; 85025; 85610; 85652; 85730; 87040; 87070; 87077; 87186; 87205; 88305; 88311; 94010; 96365; 96366; 97116; 97161; 99285; J1170; J1650; J2250; J2370; J2405; J2543; J2704; J3010; J3370; J3475; J3590; J7030; J7050; U0003

== ENCOUNTER 2022-10-27 10:35 | Inpatient (IN) | payer BC, SELFPAY ==
--- NOTE | 2022-10-27 11:45 | RAD REPORT ---
EXAM DESCRIPTION: RAD - Foot Left 3 View - 10/27/2022 11:38 am CLINICAL HISTORY: wound COMPARISON: Foot Left 3 View dated 10/17/2021; Foot Left 3 View dated 06/08/2018 FINDINGS/IMPRESSION: Partial amputation of the first and second toes. Deformity at the third toe is chronic and unchanged. No radiographic evidence of underlying osteomyelitis. Plantar aspect calcaneal spur. Peripheral vascular calcifications.
[2022-10-27] MEDS ORDERED: NA CHLORIDE 0.9% 1,000 ML ONE ×2 (12:22→13:28)
[2022-10-27 12:30] LABS: Absolute Lymphocytes (CBC) 1.4 K/uL (0.7-4.9); Hematocrit 34.7 % (39.6-49.0); Lymphocytes % 12.2 % (15.3-44.8); MCV 84.4 fL (80-100); RBC Red Blood Cell Count 4.12 M/uL (4.33-5.43)
[2022-10-27 12:38] LABS: Protime INR 1.08
[2022-10-27 12:49] LABS: Albumin 2.9 g/dL (3.4-5.0); Bilirubin Total 0.5 mg/dL (0.2-1.0); Potassium 3.1 mEq/L (3.5-5.1); Protein, Total 8.5 g/dL (6.4-8.2)
[2022-10-27] MEDS ORDERED: INSULIN -REGULAR HUMAN 50 UNIT/0.5 ML ML ONE (13:28)
[2022-10-27] MEDS ORDERED: VANCOMYCIN 1.5 GM in NA CHLORIDE 0.9% 500 ML IVPB ONE ×2 (14:00→22:00)
--- NOTE | 2022-10-27 14:37 | ER ---
Nurse's Notes [facility] Name: Ej Jane Age: 47 yrs Sex: Male : 1975 Arrival Date: 10/27/2022 Time: 10:35 Bed 5 Private MD: Diagnosis: Personal history of diabetic foot ulcer;Gangrene, not elsewhere classified Presentation: 10/27 10:55 Chief complaint: Patient states: LEFT FOOT PLANTAR WOUND SINCE JULY. Coronavirus bp screen: At this time, the client does not indicate any symptoms associated with coronavirus-19. Ebola Screen: No symptoms or risks identified at this time. Initial Sepsis Screen: Does the patient meet any 2 criteria? No. Patient's initial sepsis screen is negative. Does the patient have a suspected source of infection? No. Patient's initial sepsis screen is negative. Risk Assessment: Do you want to hurt yourself or someone else? Patient reports no desire to harm self or others. Onset of symptoms is unknown. 10:55 Method Of Arrival: Ambulatory bp 10:55 Acuity: YOAV 3 bp Historical: - Allergies: 10:54 Sulfa (Sulfonamide Antibiotics); bp - Home Meds: 10:54 None [Active]; bp - PMHx: 10:54 Diabetes mellitus; bp - Immunization history:: Last tetanus immunization: up to date. - Social history:: Smoking status: Patient denies any tobacco usage or history of. Screenin:05 [facility] ED Fall Risk Assessment (Adult) History of falling in the last 3 months, jb4 including since admission No falls in past 3 months (0 pts) Confusion or Disorientation No (0 pts) Score/Fall Risk Level 0 - 2 = Low Risk Oriented to surroundings, Maintained a safe environment. Abuse screen: Denies threats or abuse. Nutritional screening: No deficits noted. Tuberculosis screening: No symptoms or risk factors identified. Assessment: 13:00 General: Appears in no apparent distress. comfortable, Behavior is calm, cooperative. ss Pain: Complains of pain in left foot Pain currently is 9 out of 10 on a pain scale. Quality of pain is described as throbbing. Neuro: Level of Consciousness is awake, alert, obeys commands, Oriented to person, place, time, situation. Respiratory: Respiratory effort is even, unlabored, Respiratory pattern is regular, symmetrical. Derm: redness, swelling and foul odor noted to affected area. Derm: Skin is pink, warm \T\ dry. 14:00 Reassessment: Patient appears in no apparent distress at this time. Patient and/or ss family updated on plan of care and expected duration. Pain level reassessed. 15:00 Cardiovascular: Capillary refill < 3 seconds. Respiratory: Airway is patent Respiratory ss effort is even, unlabored, Respiratory pattern is regular, symmetrical. Musculoskeletal: 16:03 Reassessment: No changes from previously documented assessment. ss 17:00 Reassessment: Patient appears in no apparent distress at this time. ss 19:05 Reassessment: Patient appears in no apparent distress at this time. Patient and/or jb4 family updated on plan of care and expected duration. Pain level reassessed. Patient is alert, oriented x 3, equal unlabored respirations, skin warm/dry/pink. 19:12 Reassessment: attempted to call report, instructed to wait for call back. jb4 Vital Signs: 10:55 BP 93 / 59; Pulse 99; Resp 16; Temp 97.9; Pulse Ox 100% ; bp 13:33 BP 138 / 92; Pulse 105; Resp 16; Pulse Ox 100% on R/A; ss 19:06 BP 145 / 82; Pulse 109; Resp 16; Pulse Ox 100% on R/A; jb4 ED Course: 10:37 Patient arrived in ED. ts1 10:53 Zuly Metz, HAUNTED HISTORY TOUR GUIDE-C [facility] snw 10:53 Raman Sylvester MD is Attending Physician. snw 10:58 Triage completed. bp 11:39 Foot Left 3 View XRAY In Process Unspecified. EDMS 12:20 Inserted saline lock: 20 gauge in left antecubital area, using aseptic technique. mb9 12:25 TSH Sent. mb9 12:25 Hemoglobin A1c Sent. mb9 12:25 CRP Sent. mb9 12:25 PT-INR Sent. mb9 12:25 Ptt, Activated Sent. mb9 12:25 CMP Sent. mb9 12:25 CBC with Diff Sent. mb9 13:00 Leena Coleman, DANIEL is Primary Nurse. iw 14:36 Sujata Vogel MD is Hospitalizing Provider. snw 19:05 Patient has correct armband on for positive identification. Bed in low position. Call jb4 light in reach. Side rails up X 1. Client placed on continuous cardiac and pulse oximetry monitoring. NIBP monitoring applied. 19:06 No provider procedures requiring assistance completed. Patient admitted, IV remains in jb4 place. 19:48 Arm band placed on right wrist. iw Administered Medications: 12:25 Drug: NS 0.9% IV 1000 ml Route: IV; Rate: 125 ml/hr; Site: left antecubital; mb9 19:48 Follow up: IV Status: Infusion continued upon transfer iw 13:29 Drug: Insulin Regular Human Sub-Q 5 units {Co-Signature: du (Makenna Barr RN).} iw Route: Sub-Q; Site: right upper arm; 19:48 Follow up: Response: No adverse reaction iw 13:29 Drug: NS 0.9% IV 1000 ml Route: IV; Rate: 1 bolus; Site: left antecubital; iw 19:49 Follow up: IV Status: Completed infusion; IV Intake: 1000ml iw 13:33 Drug: vancoMYCIN IVPB 1.5 grams Route: IVPB; Rate: calculated rate; Site: left ss antecubital; 19:49 Follow up: IV Status: Completed infusion; IV Intake: 250ml iw 16:34 Drug: Potassium PO Effervescent Tablet 50 mEq Route: PO; iw 19:49 Follow up: Response: No adverse reaction iw Medication: 19:46 VIS not applicable for this client. iw Point of Care Testing: Blood Glucose: 10:55 Blood Glucose: 241 mg/dL; bp Ranges: Intake: 19:49 IV: 250ml; Total: 250ml. iw 19:49 IV: 1000ml; Total: 1250ml. iw Outcome: 14:36 Decision to Hospitalize by Provider. snw 16:00 Instructed on the need for admit. ss 19:46 Admitted to Med/surg accompanied by tech, via wheelchair, room 214, with chart, Report iw called to SYDNEY SANCHEZ 19:46 Condition: good 19:49 Patient left the ED. iw Signatures: Dispatcher [employer] EDZuly Lang FNP-C HAUNTED HISTORY TOUR GUIDE-CsnLeena Alicia, RN RN iw Makenna Barr, RN RN ss Trent Chew RN RN jb4 Doyle George RN RN bp Breneman, Mary Beth RN RN mb9 Donna Mckeon PAS PAS ts1 Barr, Makenna RN ss Corrections: (The following items were deleted from the chart) 10:55 10:54 Allergies: No Known Drug Allergies; bp bp :12 04: General: Appears in no apparent distress. comfortable, Behavior is calm, ss cooperative, ss :30 Pain: Complains of pain in left foot Pain currently is 9 out of 10 on a pain ss scale. Quality of pain is described as throbbing, ss : Neuro: Level of Consciousness is awake, alert, obeys commands, Oriented to person, place, time, situation, ss :30 Respiratory: Respiratory effort is even, unlabored, Respiratory pattern is ss regular, symmetrical, ss : Derm: Skin is pink, warm \T\ dry. ss ss :30 Derm: redness, swelling and foul odor noted to affected area. ss ss
--- NOTE | 2022-10-27 14:37 | EDPHYS ---
Physician Documentation [facility] Name: Ej Jane Age: 47 yrs Sex: Male : 1975 Arrival Date: 10/27/2022 Time: 10:35 Bed 5 Private MD: ED Physician Raman Sylvester HPI: 10/27 11:53 This 47 yrs old Male presents to ER via Ambulatory with complaints of Diabetic snw foot ulcer. 11:53 Onset: The symptoms/episode began/occurred chronic wound. Associated signs and snw symptoms: Pertinent positives: swelling. The patient has experienced similar episodes in the past, several times. The patient has not recently seen a physician. just out of [facility]. Historical: - Allergies: 10:54 Sulfa (Sulfonamide Antibiotics); bp - Home Meds: 10:54 None [Active]; bp - PMHx: 10:54 Diabetes mellitus; bp - Immunization history:: Last tetanus immunization: up to date. - Social history:: Smoking status: Patient denies any tobacco usage or history of. ROS: 11:52 Constitutional: Negative for fever, chills, and weight loss, Eyes: Negative for injury, snw pain, redness, and discharge, ENT: Negative for injury, pain, and discharge, Neck: Negative for injury, pain, and swelling, Cardiovascular: Negative for chest pain, palpitations, and edema, Respiratory: Negative for shortness of breath, cough, wheezing, and pleuritic chest pain, Abdomen/GI: Negative for abdominal pain, nausea, vomiting, diarrhea, and constipation, Back: Negative for injury and pain, : Negative for injury, bleeding, discharge, and swelling, Skin: Negative for injury, rash, and discoloration, Neuro: Negative for headache, weakness, numbness, tingling, and seizure, Psych: Negative for depression, anxiety, suicide ideation, homicidal ideation, and hallucinations. 11:52 MS/extremity: Positive for swelling, tenderness, of the left foot. Exam: 11:52 Constitutional: This is a well developed, well nourished patient who is awake, alert, snw and in no acute distress. Head/Face: Normocephalic, atraumatic. Eyes: Pupils equal round and reactive to light, extra-ocular motions intact. Lids and lashes normal. Conjunctiva and sclera are non-icteric and not injected. Cornea within normal limits. Periorbital areas with no swelling, redness, or edema. ENT: Nares patent. No nasal discharge, no septal abnormalities noted. Tympanic membranes are normal and external auditory canals are clear. Oropharynx with no redness, swelling, or masses, exudates, or evidence of obstruction, uvula midline. Mucous membranes moist. Neck: Trachea midline, no thyromegaly or masses palpated, and no cervical lymphadenopathy. Supple, full range of motion without nuchal rigidity, or vertebral point tenderness. No Meningismus. Chest/axilla: Normal chest wall appearance and motion. Nontender with no deformity. No lesions are appreciated. Cardiovascular: Regular rate and rhythm with a normal S1 and S2. No gallops, murmurs, or rubs. Normal PMI, no JVD. No pulse deficits. Respiratory: Lungs have equal breath sounds bilaterally, clear to auscultation and percussion. No rales, rhonchi or wheezes noted. No increased work of breathing, no retractions or nasal flaring. Abdomen/GI: Soft, non-tender, with normal bowel sounds. No distension or tympany. No guarding or rebound. No evidence of tenderness throughout. Back: No spinal tenderness. No costovertebral tenderness. Full range of motion. Skin: Warm, dry with normal turgor. Normal color with no rashes, no lesions, and no evidence of cellulitis. Neuro: Awake and alert, GCS 15, oriented to person, place, time, and situation. Cranial nerves II-XII grossly intact. Motor strength 5/5 in all extremities. Sensory grossly intact. Cerebellar exam normal. Normal gait. Psych: Awake, alert, with orientation to person, place and time. Behavior, mood, and affect are within normal limits. 11:52 Musculoskeletal/extremity: Extremities: grossly normal except: noted in the left foot: tenderness, Circulation is intact in all extremities. multiple remote amputations. Vital Signs: 10:55 BP 93 / 59; Pulse 99; Resp 16; Temp 97.9; Pulse Ox 100% ; bp 13:33 BP 138 / 92; Pulse 105; Resp 16; Pulse Ox 100% on R/A; ss 19:06 BP 145 / 82; Pulse 109; Resp 16; Pulse Ox 100% on R/A; jb4 MDM: 11:00 Patient medically screened. snw 14:35 Differential diagnosis: diabetic foot. Data reviewed: vital signs, nurses notes, lab snw test result(s), radiologic studies. Management of patient was discussed with the following: Hospitalist: Dr. Vogel. Counseling: I had a detailed discussion with the patient and/or guardian regarding: the historical points, exam findings, and any diagnostic results supporting the discharge/admit diagnosis, the presence of at least one elevated blood pressure reading (>120/80) during this emergency department visit, lab results, radiology results, the need for further work-up and treatment in the hospital. 10/27 11:00 Order name: CBC with Diff; Complete Time: 12:35 snw 10/27 11:00 Order name: CMP; Complete Time: 12:55 snw 10/27 11:00 Order name: Ptt, Activated; Complete Time: 12:42 snw 10/27 11:00 Order name: PT-INR; Complete Time: 12:42 snw 10/27 11:00 Order name: CRP; Complete Time: 12:55 snw 10/27 11:00 Order name: Hemoglobin A1c snw 10/27 11:09 Order name: Glucose, Ancillary Testing; Complete Time: 11:10 EDMS 10/27 11:45 Order name: TSH; Complete Time: 13:02 snw 10/27 15:48 Order name: Glucose, Ancillary Testing; Complete Time: 16:10 EDMS 10/27 16:32 Order name: Basic Metabolic Panel EDMS 10/27 16:32 Order name: Basic Metabolic Panel EDMS 10/27 16:32 Order name: CBC with Automated Diff EDMS 10/27 16:32 Order name: CBC with Automated Diff EDMS 10/27 16:32 Order name: Lipid Profile EDMS 10/27 16:32 Order name: Lipid Profile EDMS 10/27 16:32 Order name: Protime (+INR) EDMS 10/27 16:32 Order name: Protime (+INR) EDMS 10/27 16:32 Order name: PTT, Activated Partial Thromb EDMS 10/27 16:32 Order name: PTT, Activated Partial Thromb EDMS 10/27 16:33 Order name: Hemoglobin A1c EDMS 10/27 11:00 Order name: Foot Left 3 View XRAY; Complete Time: 11:48 snw 10/27 16:33 Order name: Lower Extremity Arterial Bilat; Complete Time: 19:15 EDMS 10/27 15:40 Order name: Diet Ada 1800 Bharat; Complete Time: 15:44 eb 10/27 16:32 Order name: CONS Physician Consult EDOK 10/27 16:32 Order name: Heart Healthy EDOK 10/27 16:32 Order name: NPO EDOK 10/27 12:25 Order name: IV Saline Lock; Complete Time: 12:25 mb9 Administered Medications: 12:25 Drug: NS 0.9% IV 1000 ml Route: IV; Rate: 125 ml/hr; Site: left antecubital; mb9 19:48 Follow up: IV Status: Infusion continued upon transfer iw 13:29 Drug: Insulin Regular Human Sub-Q 5 units {Co-Signature: du (Makenna Barr RN).} iw Route: Sub-Q; Site: right upper arm; 19:48 Follow up: Response: No adverse reaction iw 13:29 Drug: NS 0.9% IV 1000 ml Route: IV; Rate: 1 bolus; Site: left antecubital; iw 19:49 Follow up: IV Status: Completed infusion; IV Intake: 1000ml iw 13:33 Drug: vancoMYCIN IVPB 1.5 grams Route: IVPB; Rate: calculated rate; Site: left ss antecubital; 19:49 Follow up: IV Status: Completed infusion; IV Intake: 250ml iw 16:34 Drug: Potassium PO Effervescent Tablet 50 mEq Route: PO; iw 19:49 Follow up: Response: No adverse reaction iw Point of Care Testing: Blood Glucose: 10:55 Blood Glucose: 241 mg/dL; bp Ranges: Critical Glucose Levels:Adult <50 mg/dl or >400 mg/dl <40 mg/dl or >180 mg/dl Disposition: 10/28 09:33 Co-signature as Attending Physician, Raman Sylvester MD I reviewed the patient's care rn provided by the Advanced Practice Provider and agree with the diagnosis and treatment plan. Disposition Summary: 10/27/22 14:36 Hospitalization Ordered Hospitalization Status: Inpatient Admission snw Provider: Sujata Vogel [facility] snw Condition: Stable snw Problem: new snw Symptoms: are unchanged snw Bed/Room Type: Standard snw Room Assignment: 214(10/27/22 17:20) aa5 Diagnosis - Personal history of diabetic foot ulcer snw - Gangrene, not elsewhere classified snw Forms: - Medication Reconciliation Form snw - SBAR form snw Signatures: Dispatcher [employer] EDZuly Lang, PSYCHIATRY PHYSICIAN-C PSYCHIATRY PHYSICIAN-Csnw Leena Coleman, RN RN iw Raman Sylvester MD MD rn Calderon, Audri, RN RN aa5 Makenna Barr RN RN Doyle George RN RN Kaelyn Souza RN RN mb9 Makenna Barr RN ss Corrections: (The following items were deleted from the chart) 10/27 10:55 10:54 Allergies: No Known Drug Allergies; bp bp 17:20 14:36 snw aa5
[2022-10-27] MEDS ORDERED: ACETAMINOPHEN 500 MG TAB PO PRN (16:27)
--- NOTE | 2022-10-27 16:27 | P.HP ---
Certification for Inpatient Patient admitted to: Inpatient With expected LOS: >2 Midnights Patient will require the following post-hospital care: None Practitioner: I am a practitioner with admitting privileges, knowledge of patient current condition, hospital course, and medical plan of care. Services: Services provided to patient in accordance with Admission requirements found in Title 42 Section 412.3 of the Code of Federal Regulations Patient History Date of Service: 10/27/22 Reason for admission: Cellulitis of the left foot; diabetic foot ulcer History of Present Illness: Patient is a 47-year-old gentleman who is well-known to me from prior admissions about a year ago who comes into the hospital with diabetic foot ulcer. Patient has been dealing with the ulcer for quite a while and he recently got out of skilled nursing about 3 weeks ago. He had been on metformin in skilled nursing but since he has been he has not been taking anything. He states the pain has been getting worse while he walks on it. He decided to come into the emergency room for further evaluation. In the ER it was noted that his left foot was swollen. Foot x-ray does not show any evidence of osteomyelitis. Patient will be admitted to the hospital for further evaluation. Allergies No Known Drug Allergies Allergy (Intermediate, Verified 06/08/18 21:27) Itching Home Medications: Hydrocodone 7.5/APAP 325 [[place] 7.5/325 mg*] 1 tab PO Q6H PRN tab 10/23/21 levoFLOXacin [Levaquin] 750 mg PO DAILY 10 Days #10 tab 10/23/21 - Past Medical/Surgical History Diabetic: Yes -: Diabetes mellitus types 2 -: Diabetic foot ulcer -: Toe amputation left great toe and second tip toe - Family History parents Medical History: Heart disease, Diabetes - Social History Smoking Status: Former smoker Alcohol use: No CD- Drugs: No Review of Systems 10-point ROS is otherwise unremarkable Physical Examination - Vital Signs Temperature: 98 F Blood Pressure: 140/80 Pulse: 88 Respirations: 18 Pulse Ox (%): 96 - Physical Exam General: Alert, In no apparent distress, Oriented x3 HEENT: Atraumatic, PERRLA, Mucous membr. moist/pink, EOMI, Sclerae nonicteric Neck: Supple, 2+ carotid pulse no bruit, No LAD, Without JVD or thyroid abnormality Respiratory: Clear to auscultation bilaterally, Normal air movement Cardiovascular: Regular rate/rhythm, Normal S1 S2 Gastrointestinal: Normal bowel sounds, Soft and benign, Non-distended, No tenderness Musculoskeletal: No clubbing, Swelling, Erythema, Tenderness, Warmth Integumentary: Tenderness/swelling, Erythema, Warmth Neurological: Normal gait, Normal speech, Normal strength at 5/5 x4 extr, Normal tone, Sensation intact, Cranial nerves 3-12 intact, Normal affect Lymphatics: No axilla or inguinal lymphadenopathy - Studies Laboratory Data (last 24 hrs) 10/27/22 12:22: PT 11.9, INR 1.08, APTT 28.0 10/27/22 12:22: Sodium 131 L, Potassium 3.1 L, BUN 19 H, Creatinine 1.06, Glucose 201 H, Total Bilirubin 0.5, AST 8 L, ALT 18, Alkaline Phosphatase 89 10/27/22 12:22: WBC 11.40 H, Hgb 11.7 L, Hct 34.7 L, Plt Count 319 Assessment & Plan - Problems (Diagnosis) (1) Uncontrolled diabetes mellitus with hyperglycemia Current Visit: Yes Status: Acute (2) Hypertension Current Visit: Yes Status: Acute (3) History of amputation of left great toe Current Visit: Yes Status: Acute (4) Diabetes with ulcer of foot Onset Date: 03/20/18 Current Visit: No Status: Acute Qualifiers: (5) Cellulitis of left foot Current Visit: No Status: Resolved - Plan PLAN: 1. Continue with IV antibiotic 2. Continue with local wound care 3. Wound care consultation/surgical consultation 4. Gentle IV hydration 5. Monitor CBC 6. Strict blood sugar monitoring 7. Pain control 8. GI and DVT prophylaxis Patient has extensive risk of developing osteomyelitis as his foot ulcer looks to be pretty deep. He has a eschar located over it and this needs to be cleaned out. He needs better control of his blood sugars and he needs to resume diabetic medications as he is not taking anything at this time. We will get general surgery to consult on the patient and will make plans on arranging for discharge once his foot ulcer looks to be clean and healing appropriately. Patient has developed diabetic neuropathy over time because of his poorly controlled diabetes. He is at a high risk of developing even more complications including vasculopathy. We will get arterial Doppler to make sure his blood flow is adequate to the left foot. Patient will need to be in the hospital for at least 48 to 72 hours. Discharge Plan: Home Plan to discharge in: 48 Hours - Advance Directives Does patient have a Living Will: No Does patient have a Durable POA for Healthcare: No - Code Status/Comfort Care Code Status Assessed: Yes Code Status: Full Code Critical Care: No Time Spent Managing PTS Care (In Minutes): 45
[2022-10-27] MEDS ORDERED: GLUCAGON 1 MG/VIAL IM PRN (16:31)
[2022-10-27] MEDS ORDERED: D50W 25 GM/50 ML SYRINGE IV PRN (16:31)
[2022-10-27] MEDS ORDERED: POTASSIUM 25 MEQ EFFERV TAB ONE (16:39)
[2022-10-27] MEDS ORDERED: D10W 125 ML IV PRN (16:43)
[2022-10-27] MEDS ORDERED: VANCOMYCIN 1 GM in NA CHLORIDE 0.9% 250 ML IVPB SCH (17:00)
[2022-10-27] MEDS ORDERED: Levofloxacin500mg IV 500 MG/100 ML BAG IV ONE (18:00)
--- NOTE | 2022-10-27 19:05 | RAD REPORT ---
EXAM DESCRIPTION: US - Lower Extremity Arterial Bilat - 10/27/2022 6:14 pm CLINICAL HISTORY: Leg pain COMPARISON: None FINDINGS: The common femoral, superficial femoral and popliteal arteries bilaterally demonstrate tri phasic waveforms The posterior tibial and dorsalis pedis arteries demonstrate multiphasic waveforms bilaterally. IMPRESSION: No flow limiting arterial stenosis identified within either lower extremity.
[2022-10-27] MEDS ORDERED: MORPHINE 4 MG/ML SYR ONE (19:26)
[2022-10-27] MEDS: MORPHINE 4 MG/ML SYR IV PRN (19:26)
[2022-10-27] MEDS: NA CHLORIDE 0.9% 1,000 ML IV SCH (20:12)
[2022-10-27 20:29] VITALS: BMI 26.3
[2022-10-27] MEDS: INSULIN -REGULAR HUMAN 50 UNIT/0.5 ML ML SQ SCH (21:00)
[2022-10-27] MEDS ORDERED: Levofloxacin500mg IV 500 MG/100 ML BAG IV SCH (22:00)
[2022-10-28] MEDS: MORPHINE 4 MG/ML SYR IV PRN ×5 (01:31→22:23)
[2022-10-28] MEDS ORDERED: VANCOMYCIN 1.5 GM in NA CHLORIDE 0.9% 500 ML IVPB SCH (02:00)
[2022-10-28] MEDS ORDERED: VANCOMYCIN 1 GM/VIAL ONE (02:42)
[2022-10-28] MEDS ORDERED: NA CHLORIDE 0.9% 500 ML ONE (02:51)
[2022-10-28 04:28] LABS: Absolute Lymphocytes (CBC) 1.2 K/uL (0.7-4.9); Hematocrit 27.8 % (39.6-49.0); Lymphocytes % 12.6 % (15.3-44.8); MPV 7.1 fL (7.6-11.3); RBC Red Blood Cell Count 3.35 M/uL (4.33-5.43)
[2022-10-28 04:35] LABS: Protime INR 1.18
[2022-10-28 04:46] LABS: Potassium 3.4 mEq/L (3.5-5.1)
[2022-10-28] MEDS: NA CHLORIDE 0.9% 1,000 ML IV SCH ×3 (06:20→19:40)
[2022-10-28] MEDS: KCL 20 MEQ/100 mL IVPB 20 MEQ/100 ML BAG IV SCH ×2 (07:03→11:50)
[2022-10-28] MEDS: INSULIN -REGULAR HUMAN 50 UNIT/0.5 ML ML SQ SCH ×4 (07:30→21:00)
[2022-10-28] MEDS: INSULIN 70/30 100 UNITS/ML SQ SCH (08:00)
[2022-10-28] MEDS: VANCOMYCIN 1.25 GM in NA CHLORIDE 0.9% 250 ML IVPB SCH (15:20)
[2022-10-28] MEDS: Levofloxacin 750mg IV 750 MG/150 ML BAG IV SCH (18:24)
--- NOTE | 2022-10-28 21:12 | P.CNS ---
Date of Consult: 10/28/22 PC: I was asked to see this patient in regards to some diabetic foot ulcers. HPC: Patient presented to the emergency room with pain and discomfort in his left foot. Apparently had been helping somebody change a tire, and hurt his foot with a log not. Presents now for treatment. PSHx: Previous amputation of his great toe and second toe on left foot. PMHx: Diabetes Social Hx: No allergies Sys R: Says has been relatively okay health O/E: Awake alert comfortable at the moment HEENT: Not jaundiced Chest: Negative Abd: Negative [place]: On the ball of the great toe as well as over the head of the fifth metatarsal has what looks like 2 chronic ulcers, they do not appear to be infected. He also has loss of the longitudinal arch. Developing a Charcot's foot. On the sole there has a blistered area. The skin appears to be intact at this time. His foot is not warm, does not show any redness, but he is diabetic. Data: X-rays did not demonstrate any evidence of osteo Impression: Infected areas of the left foot Plan: Patient has been a started on antibiotics. I will see the patient again tomorrow but at this time I am hoping he will not require surgical intervention. We may be able to treat him again as outpatient in the wound care center. For the current time being we will just leave the antibiotics on him, just dressing changes and we will see if further debridement is required tomorrow. Thank you
[2022-10-29] MEDS ORDERED: VANCOMYCIN 1 GM/VIAL ONE (02:43)
[2022-10-29] MEDS ORDERED: NA CHLORIDE 0.9% 250 ML ONE (02:44)
[2022-10-29] MEDS ORDERED: VANCOMYCIN 500 MG/VIAL ONE (02:44)
[2022-10-29] MEDS: VANCOMYCIN 1.25 GM in NA CHLORIDE 0.9% 250 ML IVPB SCH ×2 (02:47→13:37)
[2022-10-29] MEDS: MORPHINE 4 MG/ML SYR IV PRN ×5 (02:49→22:28)
[2022-10-29 03:53] LABS: Potassium 4.1 mEq/L (3.5-5.1)
[2022-10-29] MEDS: INSULIN -REGULAR HUMAN 50 UNIT/0.5 ML ML SQ SCH ×4 (07:30→21:00)
[2022-10-29] MEDS: INSULIN 70/30 100 UNITS/ML SQ SCH (08:00)
--- NOTE | 2022-10-29 08:49 | RAD REPORT ---
EXAM DESCRIPTION: MRI - Foot Left Wo Cont - 10/29/2022 7:52 am CLINICAL HISTORY: Diabetic foot ulcer/? osteo Left foot pain and swelling COMPARISON: Foot Left Wo Cont dated 10/18/2021; Lower Extremity Arterial Bilat dated 10/27/2022; Foot L eft 3 View dated 10/27/2022 FINDINGS: Previous amputation noted involving great toe as well as the second toe. The distal shaft of the second metatarsal also appears absent. The head of the third metatarsal demonstrates elevated T2 signal and diminished T1 signal. There is i rregular underlying ulceration of the soft tissues surrounding fluid present. This is compatible with osteomyelitis. Drainable fluid collection not evident. Probable soft tissue gas is present in the region. No mass is seen. IMPRESSION: Third metatarsal head demonstrates findings likely representing moderate osteomyelitis.
[2022-10-29] MEDS: NA CHLORIDE 0.9% 1,000 ML IV SCH ×2 (08:58→22:27)
--- NOTE | 2022-10-29 14:52 | P.PN ---
Date of Service: 10/22/22 S: Patient states that his foot is still causing him pain. However less swollen than yesterday. Is able to walk by heel touching O: Blister on the sole of foot burst, has some drainage in that area. It fouled on foot, but think it can be remedied with some soap and water. A: Had some drainage from the sole of the foot, area less swollen than yesterday. Reviewed x-rays. P: Continue with IV antibiotics, will arrange for some better foot hygiene and dressing changes. Anticipate discharge soon. May be a candidate to be followed in the wound care center.
[2022-10-29] MEDS: Levofloxacin 750mg IV 750 MG/150 ML BAG IV SCH (16:42)
[2022-10-29] MEDS: Mupirocin NASAL 2 APPL/1 GM TUBE NAS SCH (21:00)
[2022-10-30] MEDS: VANCOMYCIN 1.25 GM in NA CHLORIDE 0.9% 250 ML IVPB SCH ×2 (02:26→14:05)
[2022-10-30] MEDS: MORPHINE 4 MG/ML SYR IV PRN ×5 (02:26→22:37)
--- NOTE | 2022-10-30 06:01 | P.PN ---
Subjective Date of Service: 10/28/22 Patient is doing better. MRI of the foot is pending. Appreciate surgery input. Awaiting MRI for possible osteomyelitis treatment. Review of Systems 10-point ROS is otherwise unremarkable Physical Examination - Vital Signs Temperature: 98.5 F Blood Pressure: 113/68 Pulse: 92 Respirations: 17 Pulse Ox (%): 99 - Physical Exam General: Alert, In no apparent distress, Oriented x3 HEENT: Atraumatic, PERRLA, EOMI Neck: Supple, JVD not distended Respiratory: Clear to auscultation bilaterally, Normal air movement Cardiovascular: Regular rate/rhythm, Normal S1 S2 Gastrointestinal: Normal bowel sounds, No tenderness Musculoskeletal: No tenderness Integumentary: Diabetic ulcer Neurological: Cranial nerves 3-12 intact, Abnormal sensation - Studies Medications List Reviewed: Yes Assessment & Plan - Problems (Diagnosis) (1) Uncontrolled diabetes mellitus with hyperglycemia Current Visit: Yes Status: Acute (2) Hypertension Current Visit: Yes Status: Acute (3) History of amputation of left great toe Current Visit: Yes Status: Acute (4) Diabetes with ulcer of foot Onset Date: 03/20/18 Current Visit: No Status: Acute Qualifiers: (5) Cellulitis of left foot Current Visit: No Status: Resolved - Plan PLAN: Plan of care as mentioned below: 1. Continue with IV antibiotic 2. Continue with local wound care 3. Wound care consultation/surgical consultation 4. Gentle IV hydration 5. Monitor CBC 6. Strict blood sugar monitoring 7. Pain control 8. GI and DVT prophylaxis Patient has extensive risk of developing osteomyelitis as his foot ulcer looks to be pretty deep. He has a eschar located over it and this needs to be cleaned out. He needs better control of his blood sugars and he needs to resume diabetic medications as he is not taking anything at this time. We will get general surgery to consult on the patient and will make plans on arranging for discharge once his foot ulcer looks to be clean and healing appropriately. Patient has developed diabetic neuropathy over time because of his poorly controlled diabetes. He is at a high risk of developing even more complications including vasculopathy. We will get arterial Doppler to make sure his blood flow is adequate to the left foot. Patient will need to be in the hospital for at least 48 to 72 hours. - Advance Directives Does patient have a Living Will: No Does patient have a Durable POA for Healthcare: No - Code Status/Comfort Care Code Status: Full Code
--- NOTE | 2022-10-30 06:03 | P.PN ---
Date of Service: 10/30/22 Subjective MRI was completed. MRI suggested that patient may have air. No signs of an abscess. Physical Examination - Vital Signs Reviewed - Physical Exam General: Alert, In no apparent distress, Oriented x3 Respiratory: Clear to auscultation bilaterally, Normal air movement Cardiovascular: Regular rate/rhythm, Normal S1 S2 Gastrointestinal: Normal bowel sounds, No tenderness Musculoskeletal: No tenderness Integumentary: Diabetic ulcer Neurological: No focal deficits Assessment & Plan - Problems (Diagnosis) (1) Uncontrolled diabetes mellitus with hyperglycemia Current Visit: Yes Status: Acute (2) Hypertension Current Visit: Yes Status: Acute (3) History of amputation of left great toe Current Visit: Yes Status: Acute (4) Diabetes with ulcer of foot Onset Date: 03/20/18 Current Visit: No Status: Acute Qualifiers: (5) Cellulitis of left foot Current Visit: No Status: Resolved - Plan Continue with plan of care as mentioned below 1. Continue with IV antibiotic; PICC line therapy 2. Continue with local wound care 3. Wound care consultation/surgical consultation 4. Gentle IV hydration 5. Monitor CBC 6. Strict blood sugar monitoring 7. Pain control 8. GI and DVT prophylaxis
--- NOTE | 2022-10-30 06:03 | P.PN ---
Date of Service: 10/29/22 Subjective MRI revealed osteomyelitis. PICC line pending. Surgery consultation appreciated. Further treatment for wound care pending Review of Systems 10-point ROS is otherwise unremarkable Physical Examination - Vital Signs Reviewed - Physical Exam General: Alert, In no apparent distress, Oriented x3 Respiratory: Clear to auscultation bilaterally, Normal air movement Cardiovascular: Regular rate/rhythm, Normal S1 S2 Gastrointestinal: Normal bowel sounds, No tenderness Musculoskeletal: No tenderness Integumentary: Diabetic ulcer Neurological: No focal deficits Assessment & Plan - Problems (Diagnosis) (1) Uncontrolled diabetes mellitus with hyperglycemia Current Visit: Yes Status: Acute (2) Hypertension Current Visit: Yes Status: Acute (3) History of amputation of left great toe Current Visit: Yes Status: Acute (4) Diabetes with ulcer of foot Onset Date: 03/20/18 Current Visit: No Status: Acute Qualifiers: (5) Cellulitis of left foot Current Visit: No Status: Resolved - Plan Continue with plan of care as mentioned below 1. Continue with IV antibiotic; PICC line therapy 2. Continue with local wound care 3. Wound care consultation/surgical consultation 4. Gentle IV hydration 5. Monitor CBC 6. Strict blood sugar monitoring 7. Pain control 8. GI and DVT prophylaxis
[2022-10-30] MEDS: INSULIN -REGULAR HUMAN 50 UNIT/0.5 ML ML SQ SCH ×4 (07:30→20:50)
--- NOTE | 2022-10-30 08:53 | P.CNS ---
Date of Consult: 10/30/22 Reason for Consult: Osteomyelitis Chief Complaint: Cellulitis of the left foot; diabetic foot ulcer History of Present Illness: Patient is a 47 yo male with a history of diabetes who presented to the ED with complaints of diabetic foot ulcer left foot. Patient reports he has been dealing with the ulcer for quite a while and he recently got out of residential about 3 weeks ago. He had been on metformin in residential but since he has been he has not been taking anything. He states the pain has been getting worse while he walks on it. He decided to come into the emergency room for further evaluation. XR left foot without evidence of underlying osteomyelitis. MRI left foot obtained 10/29 showing "irregular underlying ulceration of the soft tissues surrounding fluid present. This is compatible with osteomyelitis. Drainable fluid collection not evident. Probable soft tissue gas is present in the region. No mass is seen." Wound culture of left foot growing Proteus vulgaris. Allergies No Known Drug Allergies Allergy (Intermediate, Verified 10/27/22 20:13) Itching Home medications list reviewed: Yes Home Medications: NK [No Home Meds] 10/27/22 - Past Medical/Surgical History Diabetic: Yes -: Diabetes mellitus types 2 -: Diabetic foot ulcer -: Toe amputation left great toe and second tip toe - Family History parents Medical History: Heart disease, Diabetes - Social History Smoking Status: Unknown if ever smoked Alcohol use: No CD- Drugs: No Caffeine use: Yes Place of Residence: Home Review of Systems 10-point ROS is otherwise unremarkable Musculoskeletal: Foot Pain (left foot) Integumentary: As per HPI Physical Examination Temp Pulse Resp BP Pulse Ox 98.5 F 92 H 17 113/68 99 10/30/22 06:01 10/30/22 06:01 10/30/22 08:23 10/30/22 06:01 10/30/22 08:23 General: Alert, In no apparent distress, Oriented x3 HEENT: Atraumatic, Normocephalic Neck: Supple, JVD not distended Respiratory: Clear to auscultation bilaterally, Normal air movement Cardiovascular: No edema, Regular rate/rhythm Gastrointestinal: Normal bowel sounds, Soft and benign, Non-distended Musculoskeletal: Other (Amputation left great toe) Integumentary: Diabetic ulcer (left foot), Other (Edema left foot) Laboratory Data - Reviewed Microbiology Data - Reviewed Imagings Data: - Arterial US Bilateral LE 6/10: No flow limiting arterial stenosis identified within either lower extremity. - XR Left Foot 10/27: "Partial amputation of the first and second toes. Deformity at the third toe is chronic and unchanged. No radiographic evidence of underlying osteomyelitis. Plantar aspect calcaneal spur. Peripheral vascular calcifications." - MRI Left Foot wo contrast 10/29: "Previous amputation noted involving great toe as well as the second toe. The distal shaft of the second metatarsal also appears absent. The head of the third metatarsal demonstrates elevated T2 signal and diminished T1 signal. There is irregular underlying ulceration of the soft tissues surrounding fluid present. This is compatible with osteomyelitis. Drainable fluid collection not evident. Probable soft tissue gas is present in the region. No mass is seen." Conclusions/Impression: Problem List Diabetes Mellitus Diabetic Foot Ulcer Anemia Mild PCM Osteomyelitis Osteomyelitis Left Foot Left foot diabetic ulcer - MRI left foot 10/29: "There is irregular underlying ulceration of the soft tissues surrounding fluid present. This is compatible with osteomyelitis. Drainable fluid collection not evident. Probable soft tissue gas is present in the region. No mass is seen." - History of infected diabetic foot ulcerations with staph aureus and klebsiella in 2021. - Left Foot Wound Culture 10/27: Proteus vulgaris - Currently on Vancomycin and Levaquin - General surgery following Recommendations - MRI left foot reporting osteomyelitis and probable soft tissue gas present in the region. Recommend starting patient on Zosyn, Vancomycin and Clindamycin for empiric coverage at this time. Per surgery team, no surgical intervention required at this time, continue antibiotics and wound care. Patient will need to continue antibiotics x 6 weeks duration for osteomyelitis. He is currently on Levaquin IV, Consider switch to levaquin PO. ID will follow patient as needed. Case discussed with Iqra Pierre. Thank you Dr. Vogel for consult.
[2022-10-30] MEDS ORDERED: Levofloxacin 750mg IV 750 MG/150 ML BAG IV SCH (09:00)
[2022-10-30] MEDS: INSULIN 70/30 100 UNITS/ML SQ SCH (09:42)
[2022-10-30] MEDS: NA CHLORIDE 0.9% 1,000 ML IV SCH ×2 (11:40→22:33)
[2022-10-30] MEDS: Mupirocin NASAL 2 APPL/1 GM TUBE NAS SCH ×2 (14:06→21:03)
[2022-10-30] MEDS: Levofloxacin 750mg IV 750 MG/150 ML BAG IV SCH (18:10)
[2022-10-31] MEDS: VANCOMYCIN 1.25 GM in NA CHLORIDE 0.9% 250 ML IVPB SCH ×2 (02:02→15:01)
[2022-10-31 06:23] LABS: Lymphocytes % 13.9 % (15.3-44.8); MCV 84.4 fL (80-100); RBC Red Blood Cell Count 3.43 M/uL (4.33-5.43)
[2022-10-31 06:43] LABS: Bilirubin Total 0.3 mg/dL (0.2-1.0); Magnesium 1.7 mg/dL (1.6-2.4); Protein, Total 7.2 g/dL (6.4-8.2)
[2022-10-31] MEDS ORDERED: MAGNESIUM SULFATE 1 gm IVPB 1 GM/100 ML BAG IV ONE (07:00)
[2022-10-31] MEDS: INSULIN -REGULAR HUMAN 50 UNIT/0.5 ML ML SQ SCH ×4 (07:30→21:00)
[2022-10-31] MEDS: MORPHINE 4 MG/ML SYR IV PRN ×4 (08:30→22:35)
[2022-10-31] MEDS: ONDANSETRON 4 MG/2 ML VIAL IV PRN (08:30)
[2022-10-31] MEDS: INSULIN 70/30 100 UNITS/ML SQ SCH (08:32)
[2022-10-31] MEDS: Mupirocin NASAL 2 APPL/1 GM TUBE NAS SCH ×2 (08:32→21:08)
--- NOTE | 2022-10-31 10:12 | RAD REPORT ---
EXAM DESCRIPTION: CT - Foot Left W Con - 10/31/2022 9:43 am CLINICAL HISTORY: Foot abscess COMPARISON: X-ray October 27, 2022 TECHNIQUE: Computed coronal tomography left foot obtained with axial and sagittal reconstruction. 10 0 cc Isovue-[address] scans are performed using dose optimization technique as appropriate and may include automated exposure control or mA/KV adjustment according to patient size. FINDINGS: 3.1 centimeter fluid collection containing air is present within the plantar aspect of th e forefoot at the level of the metatarsals. This is compatible with an abscess. Cortical irregularity involves the third metatarsal head consistent with osteomyelitis No additional acute abnormality seen IMPRESSION: 3.1 centimeter forefoot abscess Osteomyelitis third metatarsal head
--- NOTE | 2022-10-31 13:10 | PN ---
Subjective: The patient is lying in bed. Has pain in his left foot. Denies any headache, nausea, v omiting, chest pain, abdominal pain, constipation, or diarrhea. Objective: General: Somnolent. Vital Signs: Reviewed. Extremities: Examination of left foot shows foul odor with large ulcer under the fourth metatarsal h ead region. Pulse was also noted at the site of ulceration and osteomyelitis and necrotizing fasciit is. Plan: Consider surgical debridement. Meanwhile, continue Dakin solution and Iodosorb or SilvaSorb t o the wound site daily. We will follow the patient as needed. NF/MODL Voice ID: [id number] Report ID: [id number]
[2022-10-31] MEDS: SILVER SULFADIAZINE 1% 50 GM TOP SCH ×2 (13:42→21:08)
--- NOTE | 2022-10-31 14:26 | P.PN ---
Date of Service: 10/31/22 S: Patient is going down for a PICC line placement. According to the nursing staff still draining some foul-smelling fluid O: Area on the sole of foot was inspected yesterday. There is a small opening but after examining the MRI I do not believe this is adequate for drainage of this abscess. A: There is an open area on the sole of the foot that is draining fluid. I do not feel however it is adequate to resolve the underlying infection. P: I will take the patient to the operating room in the morning for a incision, drainage, sharp debridement of this abscess area on the sole of his foot.
[2022-10-31] MEDS: NA CHLORIDE 0.9% 1,000 ML IV SCH (14:59)
--- NOTE | 2022-10-31 15:53 | RAD REPORT ---
EXAM DESCRIPTION: Natalie Single View10/31/2022 3:01 pm CLINICAL HISTORY: Picc line placement COMPARISON: Chest Single View dated 07/31/2018; Chest Single View dated 06/10/2018; Chest Single View dated 04/25/2018; Chest Single View dated 04/22/2018 TECHNIQUE: Portable AP view of the chest. FINDINGS: Left arm PICC in satisfactory position with catheter tip projecting over the proximal righ t atrium. The lungs are clear. No pneumothorax or effusion. The cardiomediastinal contours are unrem arkable. IMPRESSION: Satisfactory positioning of left arm PICC. No acute cardiopulmonary process.
--- NOTE | 2022-10-31 16:22 | RAD REPORT ---
[facility] CLINICAL HISTORY: PICC line placement COMPARISON: Chest Single View dated 10/31/2022; Chest Single View dated 07/31/2018; Chest Single View dated 06/10/2018; Chest Single View dated 04/25/2018 TECHNIQUE: Portable AP view of the chest. FINDINGS: Right arm PICC has been retracted. Its tip now projects over the superior cavoatrial junct ion. The lungs are clear. No pneumothorax or effusion. The cardiomediastinal contours are unremarkab le. IMPRESSION: Right arm PICC tip now projects over the superior cavoatrial junction. No acute cardiopu lmonary process.
[2022-10-31] MEDS: Levofloxacin 750mg IV 750 MG/150 ML BAG IV SCH (16:54)
[2022-11-01] MEDS: VANCOMYCIN 1.25 GM in NA CHLORIDE 0.9% 250 ML IVPB SCH ×2 (01:39→14:25)
[2022-11-01] MEDS: NA CHLORIDE 0.9% 1,000 ML IV SCH ×3 (03:40→17:35)
[2022-11-01] MEDS: MORPHINE 4 MG/ML SYR IV PRN ×3 (04:55→21:55)
[2022-11-01 05:31] LABS: Magnesium 1.9 mg/dL (1.6-2.4); Phosphorus 3.4 mg/dL (2.5-4.9); Potassium 4.2 mEq/L (3.5-5.1)
[2022-11-01] MEDS: INSULIN -REGULAR HUMAN 50 UNIT/0.5 ML ML SQ SCH ×4 (07:30→21:00)
[2022-11-01] MEDS: INSULIN 70/30 100 UNITS/ML SQ SCH (09:09)
[2022-11-01] MEDS: SILVER SULFADIAZINE 1% 50 GM TOP SCH ×2 (09:10→21:54)
[2022-11-01] MEDS: Mupirocin NASAL 2 APPL/1 GM TUBE NAS SCH ×2 (09:10→21:54)
[2022-11-01] MEDS ORDERED: MIDAZOLAM HCL 2 MG/2 ML INJ ONE (11:04)
[2022-11-01] MEDS ORDERED: propofoL 200 MG/20 ML VIAL IV ONE (11:04)
[2022-11-01] MEDS ORDERED: FENTANYL CITR 100 MCG/2 ML ONE (11:04)
[2022-11-01] MEDS ORDERED: LIDOCAINE 2% MPF 5 ML VIAL ONE (11:05)
[2022-11-01] MEDS ORDERED: ONDANSETRON 4 MG/2 ML VIAL ONE (11:07)
--- NOTE | 2022-11-01 11:48 | P.PN ---
Date of Service: 11/01/22 S: Patient has no specific complaints today. O: Dressing intact A: Patient has abscess on the plantar surface of his right foot, questionable osteo, has IV catheter in place. Wound has been draining, but shows air in the tissue most likely from the opening, versus fasciitis. P: I will taken the operating room for an incision, drainage, sharp debridement of this abscess cavity. The risks of this procedure have been discussed with the patient. The fact that he is developing an collapse of the arch of his foot, and this is a weightbearing area was explained. The possibility of delayed wound healing, and the necessity to be vigilant once it does close was explained. The possibility however of ongoing infection, need for further amputation, was described. He understands and wants to proceed.
[2022-11-01] MEDS ORDERED: KETOROLAC 30 MG/ML INJ ONE (12:04)
[2022-11-01] MEDS ORDERED: EPHEDRINE SULF 50 MG/ML VIAL ONE (12:20)
--- NOTE | 2022-11-01 12:36 | P.OP ---
Preoperative diagnosis: Abscess plantar surface left foot Postoperative diagnosis: The same Primary procedure: Incision, drainage, sharp debridement Anesthesia: General Estimated blood loss: Less than 10 cc Specimen: None sent Operative Technique: The patient brought the operating room placed supine on the table. After the induction of adequate anesthesia, the area of the left foot was prepped with a Betadine solution, draped in usual aseptic manner. Attention was turned towards the plantar surface of the left foot. Beneath the head of the first and third metatarsal, there are 2 open areas. The medial wound [under the metatarsal head] has actually closed and is healed with just some remaining traumatized callus over it. However the wound over the head of the third metatarsal is open, connects down to an abscess cavity. While this was opened and draining, it was not adequate to completely decompress this abscess that had formed in the plantar area. Initially the wound was sharply debrided using an 11 blade and a cutting surgical curette. The chronic granulation tissue and necrotic debris was removed. Hemostat was now placed into this and we had a pocket that extended inferiorly for approximately 3 cm x 2 cm. The hemostat was placed into the opening under the third metatarsal and passed towards the calcaneus staying superficial. A counterincision was made over the tip of this hemostat at the most proximal portion of this abscess. A counterincision was made with 11 blade. This wound was now irrigated with a saline solution. A [place] drain was passed from the initial opening out through our new incision. This is to keep it open and draining during the postoperative period. At the end of the procedure the patient was in a stable condition was sent to the recovery room. Needle sponge instrument count were correct. 1 [place] drain had been placed. Complications: None Transferred to: Recovery Room Condition: Good
[2022-11-01] MEDS: Levofloxacin 750mg IV 750 MG/150 ML BAG IV SCH (16:41)
[2022-11-01] MEDS: HYDROCODONE/APAP 7.5/325 MG TAB PO PRN (16:42)
[2022-11-02] MEDS: VANCOMYCIN 1.25 GM in NA CHLORIDE 0.9% 250 ML IVPB SCH ×2 (02:19→13:25)
[2022-11-02] MEDS: NA CHLORIDE 0.9% 1,000 ML IV SCH ×2 (02:24→22:23)
[2022-11-02] MEDS: MORPHINE 4 MG/ML SYR IV PRN ×4 (02:25→15:40)
--- NOTE | 2022-11-02 02:37 | P.PN ---
Date of Service: 11/01/22 Subjective Patient to be taken to the operating room today. Patient had a large amount of purulent drainage on expression of the wound. Cultures are pending. Physical Examination - Vital Signs Reviewed - Physical Exam General: Alert, In no apparent distress, Oriented x3 Respiratory: Clear to auscultation bilaterally Cardiovascular: Regular rate/rhythm, Normal S1 S2 Gastrointestinal: Normal bowel sounds, No tenderness Musculoskeletal: No tenderness Integumentary: Diabetic ulcer; Purulent drainage below the third metatarsal Neurological: Neuropathy, but o/w no focal deficits Assessment & Plan - Problems (Diagnosis) (1) Uncontrolled diabetes mellitus with hyperglycemia Current Visit: Yes Status: Acute (2) Hypertension Current Visit: Yes Status: Acute (3) History of amputation of left great toe Current Visit: Yes Status: Acute (4) Diabetes with ulcer of left foot; abscess on the plantar aspect of the foot Onset Date: 03/20/18 Current Visit: No Status: Acute (5) Cellulitis of left foot Current Visit: No Status: Resolved - Plan Continue with plan of care as mentioned below 1. Continue with IV antibiotic; PICC line therapy-4 weeks of IV levaquin 2. Continue with local wound care 3. Wound care consultation/surgical consultation/ID consultation appreciated 4. Gentle IV hydration 5. Monitor CBC 6. Strict blood sugar monitoring 7. Pain control 8. GI and DVT prophylaxis
--- NOTE | 2022-11-02 02:41 | P.PN ---
Date of Service: 10/31/22 Subjective Patient is clinically doing well. Patient denies any new complaints. Physical Examination - Vital Signs Reviewed - Physical Exam General: Alert, In no apparent distress, Oriented x3 Respiratory: Clear to auscultation bilaterally Cardiovascular: Regular rate/rhythm, Normal S1 S2 Gastrointestinal: Normal bowel sounds, No tenderness Musculoskeletal: No tenderness Integumentary: Diabetic ulcer; Purulent drainage below the third metatarsal Neurological: Neuropathy, but o/w no focal deficits Assessment & Plan - Problems (Diagnosis) (1) Uncontrolled diabetes mellitus with hyperglycemia Current Visit: Yes Status: Acute (2) Hypertension Current Visit: Yes Status: Acute (3) History of amputation of left great toe Current Visit: Yes Status: Acute (4) Diabetes with ulcer of left foot; abscess on the plantar aspect of the foot Onset Date: 03/20/18 Current Visit: No Status: Acute (5) Cellulitis of left foot Current Visit: No Status: Resolved - Plan Continue with plan of care as mentioned below 1. Continue with IV antibiotic; PICC line therapy-4 weeks of IV levaquin 2. Continue with local wound care 3. Wound care consultation/surgical consultation/ID consultation appreciated 4. Gentle IV hydration 5. Monitor CBC 6. Strict blood sugar monitoring 7. Pain control 8. GI and DVT prophylaxis
--- NOTE | 2022-11-02 02:43 | P.PN ---
Date of Service: 11/02/22 Subjective Postop day #1 from I&D Physical Examination - Vital Signs Reviewed - Physical Exam General: Alert, In no apparent distress, Oriented x3 Respiratory: Clear to auscultation bilaterally, Normal air movement Cardiovascular: Regular rate/rhythm, Normal S1 S2 Gastrointestinal: Normal bowel sounds, No tenderness Musculoskeletal: No tenderness Integumentary: Diabetic ulcer Neurological: No focal deficits Assessment & Plan - Problems (Diagnosis) (1) Uncontrolled diabetes mellitus with hyperglycemia Current Visit: Yes Status: Acute (2) Hypertension Current Visit: Yes Status: Acute (3) History of amputation of left great toe Current Visit: Yes Status: Acute (4) Diabetes with ulcer of foot Onset Date: 03/20/18 Current Visit: No Status: Acute Qualifiers: (5) Cellulitis of left foot Current Visit: No Status: Resolved - Plan Continue with plan of care as mentioned below 1. Continue with IV antibiotic; regarding IV antibiotics. Will discuss with infectious disease regarding antibiotic therapy. Currently they recommended 4 weeks of IV antibiotics followed by 2 weeks of oral antibiotics. 2. Continue with local wound care 3. Wound care consultation/surgical consultation/ID consultation appreciated 4. Gentle IV hydration 5. Monitor CBC 6. Strict blood sugar monitoring 7. Pain control 8. GI and DVT prophylaxis
[2022-11-02] MEDS: HYDROCODONE/APAP 7.5/325 MG TAB PO PRN ×2 (04:32→19:34)
[2022-11-02 04:50] LABS: Absolute Lymphocytes (CBC) 0.8 K/uL (0.7-4.9); Hematocrit 28.6 % (39.6-49.0); Lymphocytes % 14.9 % (15.3-44.8); MCV 84.7 fL (80-100); MPV 6.4 fL (7.6-11.3); RBC Red Blood Cell Count 3.37 M/uL (4.33-5.43)
[2022-11-02 05:05] LABS: Bilirubin Total 0.3 mg/dL (0.2-1.0); Magnesium 1.9 mg/dL (1.6-2.4); Potassium 4.1 mEq/L (3.5-5.1); Protein, Total 7.4 g/dL (6.4-8.2)
[2022-11-02] MEDS: INSULIN -REGULAR HUMAN 50 UNIT/0.5 ML ML SQ SCH ×4 (07:30→21:00)
[2022-11-02] MEDS: INSULIN 70/30 100 UNITS/ML SQ SCH (08:40)
[2022-11-02] MEDS: Mupirocin NASAL 2 APPL/1 GM TUBE NAS SCH ×2 (08:41→19:35)
[2022-11-02] MEDS: SILVER SULFADIAZINE 1% 50 GM TOP SCH ×2 (08:41→22:22)
--- NOTE | 2022-11-02 14:31 | P.PN ---
Date of Service: 11/02/22 S: Patient rather depressed today. No specific complaints about his foot. O: Dressing taken down, wound is clean, Georgi drain in place. Still has some serosanguineous drainage coming from the wounds as expected. However surrounding inflammation has diminished markedly. Appears to be responding well to I&D of abscess. A: From a surgical point of view, patient now just needs to do wound care. He was [place] drain will be removed by myself or himself on Saturday. Dressing changes daily. Wash it with soap and water. P: From a surgical standpoint, foot is much better. He is supposed to be on antibiotics. Patient is apparently under funded so we will see what arrangements can be made for him. When he is discharged, I have instructed him on how to do his wound care. He knows about drain care. He will follow-up with me in my office, or the wound care center. He appears to be content with that.
[2022-11-02] MEDS: Levofloxacin 750mg IV 750 MG/150 ML BAG IV SCH (17:43)
[2022-11-02] MEDS: ONDANSETRON 4 MG/2 ML VIAL IV PRN (19:43)
[2022-11-03] MEDS: VANCOMYCIN 1.25 GM in NA CHLORIDE 0.9% 250 ML IVPB SCH (02:00)
[2022-11-03] MEDS: HYDROCODONE/APAP 7.5/325 MG TAB PO PRN ×3 (04:24→20:50)
[2022-11-03] MEDS: INSULIN -REGULAR HUMAN 50 UNIT/0.5 ML ML SQ SCH ×4 (07:30→20:33)
[2022-11-03] MEDS: Mupirocin NASAL 2 APPL/1 GM TUBE NAS SCH (08:17)
[2022-11-03] MEDS: INSULIN 70/30 100 UNITS/ML SQ SCH (08:24)
[2022-11-03] MEDS: NA CHLORIDE 0.9% 1,000 ML IV SCH (08:54)
[2022-11-03] MEDS: VANCOMYCIN 1.5 GM in NA CHLORIDE 0.9% 500 ML IVPB SCH (08:54)
[2022-11-03] MEDS: SILVER SULFADIAZINE 1% 50 GM TOP SCH ×2 (08:55→20:50)
[2022-11-03] MEDS: Levofloxacin 750mg IV 750 MG/150 ML BAG IV SCH (16:34)
[2022-11-03 23:35] VITALS: O2SAT 98
--- NOTE | 2022-11-04 00:09 | P.PN ---
Date of Service: 11/03/22 Subjective Postop day #2 from I&D; Georgi drain still in place. Plan to remove it on Saturday. We will teach patient how to do dressing change. Once patient is able to do this we have also arranged for IV antibiotics through administration. Anticipate discharge home Saturday as long as patient is able to handle the dressing change and he can come to wound care once a week Physical Examination - Vital Signs Reviewed - Physical Exam General: Alert, In no apparent distress, Oriented x3 Respiratory: Clear to auscultation bilaterally, Normal air movement Cardiovascular: Regular rate/rhythm, Normal S1 S2 Gastrointestinal: Normal bowel sounds, No tenderness Musculoskeletal: No tenderness Integumentary: Diabetic ulcer Neurological: No focal deficits Assessment & Plan - Problems (Diagnosis) (1) Uncontrolled diabetes mellitus with hyperglycemia Current Visit: Yes Status: Acute (2) Hypertension Current Visit: Yes Status: Acute (3) History of amputation of left great toe Current Visit: Yes Status: Acute (4) Diabetes with ulcer of foot Onset Date: 03/20/18 Current Visit: No Status: Acute Qualifiers: (5) Cellulitis of left foot Current Visit: No Status: Resolved - Plan Continue with plan of care as mentioned below 1. Continue with IV antibiotic; regarding IV antibiotics. Will discuss with infectious disease regarding antibiotic therapy. Currently they recommended 4 weeks of IV antibiotics followed by 2 weeks of oral antibiotics. At this time, we will go ahead and plan on continuing IV antibiotics for 2 to 4 weeks and change to oral antibiotics afterwards for a total of 6 weeks. Georgi drain should be removed on Saturday. Anticipate discharge home Saturday. 2. Continue with local wound care 3. Wound care consultation/surgical consultation/ID consultation appreciated 4. HEPLOCK iv 5. Monitor CBC 6. Strict blood sugar monitoring 7. Pain control 8. GI and DVT prophylaxis
--- NOTE | 2022-11-04 00:10 | P.PN ---
Date of Service: 11/04/22 Subjective Postop day #3 from I&D; [place] drain still in place. Plan to remove it on Saturday. Teaching patient how to do dressing change. Anticipate discharge home Saturday as long as patient is able to handle the dressing change and he can come to wound care once a week Physical Examination - Vital Signs Reviewed - Physical Exam General: Alert, In no apparent distress, Oriented x3 Respiratory: Clear to auscultation bilaterally, Normal air movement Cardiovascular: Regular rate/rhythm, Normal S1 S2 Gastrointestinal: Normal bowel sounds, No tenderness Musculoskeletal: No tenderness Integumentary: Diabetic ulcer; penvose drain in place Neurological: No focal deficits except for sensory abnormalities Assessment & Plan - Problems (Diagnosis) (1) Uncontrolled diabetes mellitus with hyperglycemia Current Visit: Yes Status: Acute (2) Hypertension Current Visit: Yes Status: Acute (3) History of amputation of left great toe Current Visit: Yes Status: Acute (4) Diabetes with ulcer of foot Onset Date: 03/20/18 Current Visit: No Status: Acute (5) Cellulitis of left foot Current Visit: No Status: Resolved - Plan POC as mentioned below: 1. Continue with IV antibiotic; regarding IV antibiotics. Will discuss with infectious disease regarding antibiotic therapy. Currently they recommended 4 weeks of IV antibiotics followed by 2 weeks of oral antibiotics. At this time, we will go ahead and plan on continuing IV antibiotics for 2 to 4 weeks and change to oral antibiotics afterwards for a total of 6 weeks. [place] drain should be removed on Saturday. Anticipate discharge home Saturday. 2. Continue with local wound care 3. Wound care consultation/surgical consultation/ID consultation appreciated 4. HEPLOCK iv 5. Monitor CBC 6. Strict blood sugar monitoring 7. Pain control 8. GI and DVT prophylaxis
[2022-11-04] MEDS: HYDROCODONE/APAP 7.5/325 MG TAB PO PRN ×3 (02:54→17:20)
[2022-11-04] MEDS: NA CHLORIDE 0.9% 1,000 ML IV SCH ×3 (02:54→19:27)
[2022-11-04] MEDS: VANCOMYCIN 1.5 GM in NA CHLORIDE 0.9% 500 ML IVPB SCH ×2 (02:54→20:00)
[2022-11-04] MEDS: INSULIN -REGULAR HUMAN 50 UNIT/0.5 ML ML SQ SCH ×4 (07:30→21:00)
[2022-11-04] MEDS: INSULIN 70/30 100 UNITS/ML SQ SCH (09:15)
[2022-11-04] MEDS: SILVER SULFADIAZINE 1% 50 GM TOP SCH ×2 (09:17→21:00)
[2022-11-04] MEDS: Levofloxacin 750mg IV 750 MG/150 ML BAG IV SCH (17:20)
[2022-11-05] MEDS: HYDROCODONE/APAP 7.5/325 MG TAB PO PRN ×4 (00:28→21:03)
[2022-11-05 06:06] LABS: Absolute Lymphocytes (CBC) 1.6 K/uL (0.7-4.9); Hematocrit 29.2 % (39.6-49.0); Lymphocytes % 24.6 % (15.3-44.8); MCV 84.8 fL (80-100); MPV 6.4 fL (7.6-11.3); RBC Red Blood Cell Count 3.44 M/uL (4.33-5.43)
[2022-11-05 06:28] LABS: Albumin 2.1 g/dL (3.4-5.0); Bilirubin Total 0.2 mg/dL (0.2-1.0); Magnesium 1.9 mg/dL (1.6-2.4); Protein, Total 7.8 g/dL (6.4-8.2)
[2022-11-05] MEDS: INSULIN -REGULAR HUMAN 50 UNIT/0.5 ML ML SQ SCH ×4 (07:30→20:56)
[2022-11-05] MEDS: INSULIN 70/30 100 UNITS/ML SQ SCH (08:34)
[2022-11-05] MEDS: NA CHLORIDE 0.9% 1,000 ML IV SCH ×2 (08:34→20:59)
[2022-11-05] MEDS: SILVER SULFADIAZINE 1% 50 GM TOP SCH ×2 (08:36→20:58)
[2022-11-05] MEDS ORDERED: VANCOMYCIN 1.25 GM in NA CHLORIDE 0.9% 250 ML IVPB SCH (09:00)
[2022-11-05] MEDS ORDERED: VANCOMYCIN 1.5 GM in NA CHLORIDE 0.9% 500 ML IVPB SCH (09:00)
[2022-11-05] MEDS: VANCOMYCIN 1.5 GM in NA CHLORIDE 0.9% 500 ML IVPB SCH (10:20)
[2022-11-05] MEDS: Levofloxacin 750mg IV 750 MG/150 ML BAG IV SCH (16:29)
[2022-11-05] MEDS ORDERED: NA CHLORIDE 0.9% 250 ML IV ONE (16:40)
[2022-11-05] MEDS ORDERED: NA CHLORIDE 0.9% 500 ML IV ONE (18:25)
[2022-11-06] MEDS: HYDROCODONE/APAP 7.5/325 MG TAB PO PRN (04:51)
[2022-11-06] MEDS: INSULIN -REGULAR HUMAN 50 UNIT/0.5 ML ML SQ SCH ×2 (07:30→11:30)
[2022-11-06] MEDS: INSULIN 70/30 100 UNITS/ML SQ SCH (08:21)
[2022-11-06] MEDS: SILVER SULFADIAZINE 1% 50 GM TOP SCH (08:22)
[2022-11-06 08:29] VITALS: BP 115/66; TEMP 98.3
[2022-11-06] MEDS: VANCOMYCIN 1.5 GM in NA CHLORIDE 0.9% 500 ML IVPB SCH (09:09)
--- NOTE | 2022-11-06 11:34 | PN ---
Subjective: Patient lying in bed. No new acute events. Somnolent. Complains of pain in his left f oot. Had surgical intervention done by surgical team. Objective: Vital Signs: Reviewed. No new changes on examination except a [place] dressing noted going to the foot wound. Laboratory Data: Reviewed. Assessment And Plan: Osteomyelitis of left foot. Continue antibiotic for 6 weeks. Apply local anti bacterial treatment like Betadine or Silvadene or SilvaSorb and follow up with the podiatry team. NF/MODL Voice ID: [id number] Report ID: [id number]
== END 2022-11-06 12:06 | disposition home or self-care (01) | DRG 622 ==
LOC: ER 10:35 → ERHOLD 16:38 → 2ND 19:37
PROVIDERS: ADMIT Hospitalist; ATTEND Hospitalist
PROC: 02HV33Z Insertion of Infusion Device into Superior Vena Cava, Percutaneous Approach (ICD-10-PCS; 2022-10-31)
PROC: 0JBR0ZZ Excision of Left Foot Subcutaneous Tissue and Fascia, Open Approach (ICD-10-PCS; principal; 2022-11-01 11:30)
DX: E11.69 Type 2 diabetes mellitus with other specified complication (principal); M72.6 Necrotizing fasciitis; L03.116 Cellulitis of left lower limb; M86.8X7 Other osteomyelitis, ankle and foot; L02.612 Cutaneous abscess of left foot; E11.52 Type 2 diabetes mellitus with diabetic peripheral angiopathy with gangrene; E11.621 Type 2 diabetes mellitus with foot ulcer; L97.529 Non-pressure chronic ulcer of other part of left foot with unspecified severity; E11.610 Type 2 diabetes mellitus with diabetic neuropathic arthropathy; E11.65 Type 2 diabetes mellitus with hyperglycemia; I10 Essential (primary) hypertension; T38.3X6A Underdosing of insulin and oral hypoglycemic [antidiabetic] drugs, initial encounter; B96.4 Proteus (mirabilis) (morganii) as the cause of diseases classified elsewhere; Z88.1 Allergy status to other antibiotic agents; Z79.84 Long term (current) use of oral hypoglycemic drugs; Z91.128 Patient's intentional underdosing of medication regimen for other reason; Z91.148 Patient's other noncompliance with medication regimen for other reason; Z79.899 Other long term (current) drug therapy; Z89.412 Acquired absence of left great toe; Z89.422 Acquired absence of other left toe(s); Z87.891 Personal history of nicotine dependence
CPT/HCPCS: 36415; 36569; 71045; 73701; 80048; 80053; 80061; 80202; 82947; 83036; 83735; 84100; 84145; 84443; 85025; 85610; 85730; 86140; 87070; 87077; 87186; 87205; 93925; 96361; 96365; 96366; 96372; 99285; J1815; J2001; J2250; J2405; J2704; J3010; J3475; J3480; J7030; J7040; J7050; Q9967

== ENCOUNTER 2022-12-22 08:05 | Emergency (ER) | payer SELFPAY ==
--- NOTE | 2022-12-22 08:22 | EDPHYS ---
Physician Documentation [facility] Name: Ej Jane Age: 47 yrs Sex: Male : 1975 Arrival Date: 12/22/2022 Time: 08:05 Bed 14 Private MD: ED Physician Hunter Fuentes HPI: 12/22 08:22 This 47 yrs old Male presents to ER via Unassigned with complaints of Picc cp3 Line Issue On Left Arm. 08:22 The patient is a 47-year-old male who presents to the ED secondary to PICC line cp3 partially pulled out from the left upper extremity x24 hours patient noted the symptoms last night but did not want a wait in the ED for evaluation last night. The patient endorses he had the PICC line secondary to IV antibiotics. The patient endorses he has completed his course of IV antibiotics and is due to have PICC line removed next week this week. The patient denies fever, chills, vomiting, extremity swelling. Patient endorses he has switched to oral antibiotics at this time and has not been using the PICC line at all.. Historical: - Home Meds: 08:30 None [Active]; dd1 - PMHx: 08:24 diabetes mellitus; cp3 - PSHx: 08:31 right knee surgery; kc6 08:30 LEFT BIG TOE AMPUTATION; LEFT 2ND TOE AMPUTATION; LEFT HAND SURGERY; dd1 - Immunization history:: Adult Immunizations not up to date. - Social history:: Smoking status: Patient denies any tobacco usage or history of. Patient uses street drugs, Methamphetamine (Meth). ROS: 08:24 Constitutional: Negative for fever, chills, and weight loss, Cardiovascular: Negative cp3 for chest pain, palpitations, and edema, Respiratory: Negative for shortness of breath, cough, wheezing, and pleuritic chest pain, Abdomen/GI: Negative for abdominal pain, nausea, vomiting, diarrhea, and constipation, Back: Negative for injury and pain, : Negative for injury, bleeding, discharge, and swelling. 08:24 Skin: Negative for injury, rash, and discoloration, Neuro: Negative for headache, weakness, numbness, tingling, and seizure. 08:24 MS/extremity: Positive for PICC line partially pulled out on left side. Exam: 08:25 Constitutional: This is a well developed, well nourished patient who is awake, alert, cp3 and in no acute distress. Head/Face: Normocephalic, atraumatic. Chest/axilla: Normal chest wall appearance and motion. Nontender with no deformity. No lesions are appreciated. Cardiovascular: Regular rate and rhythm with a normal S1 and S2. No gallops, murmurs, or rubs. Normal PMI, no JVD. No pulse deficits. Respiratory: Lungs have equal breath sounds bilaterally, clear to auscultation and percussion. No rales, rhonchi or wheezes noted. No increased work of breathing, no retractions or nasal flaring. Abdomen/GI: Soft, non-tender, with normal bowel sounds. No distension or tympany. No guarding or rebound. No evidence of tenderness throughout. Back: No spinal tenderness. No costovertebral tenderness. Full range of motion. 08:25 MS/ Extremity: Pulses equal, no cyanosis. Neurovascular intact. Full, normal range of motion. Neuro: Awake and alert, GCS 15, oriented to person, place, time, and situation. Cranial nerves II-XII grossly intact. Motor strength 5/5 in all extremities. Sensory grossly intact. Cerebellar exam normal. Normal gait. Psych: Awake, alert, with orientation to person, place and time. Behavior, mood, and affect are within normal limits. 08:25 Skin: PICC line partially removed from left upper extremity. At site of insertion there is no erythema, purulent drainage, bleeding. Vital Signs: 08:24 BP 141 / 95; Pulse 99; Resp 17; Temp 97.9; Pulse Ox 99% ; Weight 68.04 kg; Height 5 ft. dd1 6 in. ; Pain 0/10; 08:24 Body Mass Index 24.21 (68.04 kg, 167.64 cm) dd1 08:24 Pain Scale: Adult dd1 Procedures: 08:25 Performed PICC line removed after cleaning skin with saline and Hibiclens. PICC line cp3 pulled in entirety no fracture to the PICC line noted. No bleeding or purulent drainage after removal. Skin site cleaned with chlorhexidine and covered. MDM: 08:16 Patient medically screened. cp3 08:25 Differential Diagnosis The differential diagnosis includes: Fracture PICC line, cp3 uncomplicated PICC line removal, complication of PICC line, soft tissue infection, cellulitis . Data reviewed: vital signs, nurses notes. Consideration of Admission/Observation No emergent indication for hospitalization. External Records Reviewed: PDMP reviewed and negative. Response to treatment: the patient's symptoms have resolved after treatment, PICC line removed without incident patient requesting to keep his PICC line. Patient denies any pain status post procedure. Awaiting: X-ray results. 08:44 Independent interpretation of the following test(s) in the Emergency Department X-Ray: cp3 My interpretation is Chest x-ray interpreted by me no evidence of foreign body. No acute cardiopulmonary process. 12/22 08:19 Order name: CXR XRAY cp3 Administered Medications: No medications were administered Disposition Summary: 12/22/22 08:21 Discharge Ordered Location: Home cp3 Symptoms: are resolved cp3 Condition: Stable cp3 Diagnosis - Pain in left arm - PICC line dislodged cp3 Followup: cp3 - With: Private Physician - When: - Reason: If symptoms return Discharge Instructions: - Discharge Summary Sheet cp3 - PICC Removal, Adult cp3 Forms: - Medication Reconciliation Form cp3 - Thank You Letter cp3 - Antibiotic Education cp3 - Prescription Opioid Use cp3 - Patient Portal Instructions cp3 Signatures: Dispatcher [employer] Hunter Foster MD MD cp3 April Evans RN RN kc6 Oh Akers RN RN dd1
--- NOTE | 2022-12-22 08:52 | ER ---
Nurse's Notes [facility] Name: Ej Jane Age: 47 yrs Sex: Male : 1975 Arrival Date: 12/22/2022 Time: 08:05 Bed 14 Private MD: Diagnosis: Pain in left arm-PICC line dislodged Presentation: 12/22 08:24 Chief complaint: Patient states: PICC LINE PULLED OUT HALF WAY 2 DAYS AGO. Coronavirus dd1 screen: Vaccine status: Patient reports being unvaccinated. Client denies travel out of the [place] in the last 14 days. At this time, the client does not indicate any symptoms associated with coronavirus-19. Ebola Screen: No symptoms or risks identified at this time. Initial Sepsis Screen: Does the patient meet any 2 criteria? HR > 90 bpm. No. Patient's initial sepsis screen is negative. Does the patient have a suspected source of infection? Yes: Skin breakdown/wound. Risk Assessment: Do you want to hurt yourself or someone else? Patient reports no desire to harm self or others. Onset of symptoms is unknown. 08:24 Method Of Arrival: Ambulatory dd1 08:24 Acuity: YOAV 5 dd1 Triage Assessment: 08:24 General: Appears in no apparent distress. comfortable, Behavior is calm, cooperative. dd1 Pain: Denies pain. Historical: - Home Meds: 08:30 None [Active]; dd1 - PMHx: 08:24 diabetes mellitus; cp3 - PSHx: 08:31 right knee surgery; kc6 08:30 LEFT BIG TOE AMPUTATION; LEFT 2ND TOE AMPUTATION; LEFT HAND SURGERY; dd1 - Immunization history:: Adult Immunizations not up to date. - Social history:: Smoking status: Patient denies any tobacco usage or history of. Patient uses street drugs, Methamphetamine (Meth). Screenin:27 [facility] ED Fall Risk Assessment (Adult) Score/Fall Risk Level 0 - 2 = Low Risk dd1 Oriented to surroundings, Maintained a safe environment. Abuse screen: Denies threats or abuse. Denies injuries from another. Nutritional screening: No deficits noted. Tuberculosis screening: No symptoms or risk factors identified. Assessment: 08:27 Derm: No signs and/or symptoms reported regarding the dermatologic system. PT HAS dd1 PUNCTURE SITE IN L UPPER ARM, FROM PICC LINE. REMOVED HERE BY ALICJA RAY AT BEDSIDE. PT DENIES ANY PAIN, NAD NOTED. Vital Signs: 08:24 BP 141 / 95; Pulse 99; Resp 17; Temp 97.9; Pulse Ox 99% ; Weight 68.04 kg; Height 5 ft. dd1 6 in. ; Pain 0/10; 08:24 Body Mass Index 24.21 (68.04 kg, 167.64 cm) dd1 08:24 Pain Scale: Adult dd1 ED Course: 08:08 Patient arrived in ED. mg5 08:10 April Evans, RN is Primary Nurse. kc6 08:10 Hunter Fuentes MD is Attending Physician. cp3 08:24 Oh Akers, RN is Primary Nurse. dd1 08:24 Arm band placed on right wrist. dd1 08:26 Triage completed. dd1 08:27 Patient has correct armband on for positive identification. Bed in low position. Call dd1 light in reach. Side rails up X 1. 08:33 No provider procedures requiring assistance completed. dd1 08:45 CXR XRAY In Process Unspecified. EDMS 08:51 Provided Education on: DISCHARGE INSTRUCTIONS GIVEN TO PATIENT.. dd1 08:51 Patient did not have IV access during this emergency room visit. dd1 Administered Medications: No medications were administered Medication: 08:27 VIS not applicable for this client. dd1 Outcome: 08:21 Discharge ordered by . cp3 08:51 Discharged to home ambulatory. dd1 08:51 Condition: good 08:51 Discharge instructions given to patient, Instructed on discharge instructions, follow up and referral plans. Demonstrated understanding of instructions, follow-up care. 08:52 Patient left the ED. dd1 Signatures: Dispatcher [employer] Hunter Foster MD MD cp3 April Evans, RN RN Parisa Finn 5 Oh Akers, RN RN dd1
[2022-12-22 08:57] VITALS: BP 141/95; TEMP 97.9; O2SAT 99
--- NOTE | 2022-12-22 09:22 | RAD REPORT ---
EXAM DESCRIPTION: RAD - Chest Single View - 12/22/2022 8:43 am CLINICAL HISTORY: PICC line complication Chest pain. COMPARISON: <Comparisons> FINDINGS: Portable technique limits examination quality. The lungs are grossly clear. The heart is normal in size. Minimally displaced fracture of the left la teral inferior rib. . No PICC line is visualized.
== END 2022-12-22 08:52 | disposition home or self-care (01) ==
LOC: ER 08:05
DX: T82.524A Displacement of infusion catheter, initial encounter (principal)
CPT/HCPCS: 71045; 99282

== ENCOUNTER 2023-07-04 19:28 | Inpatient (IN) | payer SELFPAY ==
--- NOTE | 2023-07-04 20:43 | RAD REPORT ---
EXAM DESCRIPTION: RAD - Foot Left 3 View - 07/04/2023 8:37 pm CLINICAL HISTORY: PAIN COMPARISON: Foot Left 3 View dated 10/27/2022; Foot Left 3 View dated 10/17/2021 FINDINGS: Demineralization of the distal aspect of the first metatarsal head present. This is compat ible with osteomyelitis. The surrounding soft tissues are markedly swollen. Previous first and second toe amputation noted. Irregular bony remodeling and destructive changes third metatarsal proximal th ird phalanx. MRI followup may be of value.
[2023-07-04 20:46] LABS: Absolute Eosinophils 0.1 K/uL (0-0.5); Absolute Lymphocytes (CBC) 0.6 K/uL (0.7-4.9); Absolute Monocytes 0.7 K/uL (0.1-1.3); Absolute Neutrophil 9.9 K/uL (1.8-8.0); Basophils % 0.3 % (0-1.3); Eosinophils % 0.7 % (0-4.4); Hemoglobin 9.5 g/dL (13.6-17.9); Lymphocytes % 5.2 % (15.3-44.8); MCHC 35.1 g/dL (32.0-36.0); MCV 82.7 fL (80-100); MPV 6.2 fL (7.6-11.3); Monocytes % 5.8 % (3.3-12.3); Platelets 377 thou/uL (152-406); RBC Red Blood Cell Count 3.26 M/uL (4.33-5.43); Red Cell Distribution Width 13.6 % (12.1-15.2)
[2023-07-04] MEDS ORDERED: NA CHLORIDE 0.9% 250 ML ONE (20:50)
[2023-07-04] MEDS ORDERED: CEFEPIME 2 GM VIAL ONE (20:50)
[2023-07-04] MEDS ORDERED: VANCOMYCIN 1 GM/VIAL ONE ×2 (20:50→22:06)
[2023-07-04] MEDS ORDERED: NA CHLORIDE 0.9% 100 ML ONE (20:50)
[2023-07-04 20:51] LABS: PT Prothrombin Time 13.4 SECONDS (9.5-12.5); PTT, Activated Partial Thromb 27.1 SECONDS (24.3-36.9); Protime INR 1.23
[2023-07-04] MEDS ORDERED: NA CHLORIDE 0.9% 1,000 ML ONE (20:51)
[2023-07-04 21:02] LABS: Albumin 2.3 g/dL (3.4-5.0); Albumin/Globulin Ratio 0.3 (1.1-1.8); Anion Gap 7.9 mEq/L (5.0-15.0); Bilirubin Total 0.5 mg/dL (0.2-1.0); Globulin 6.9 g/dL (2.3-3.5); Potassium 3.9 mEq/L (3.5-5.1); Protein, Total 9.2 g/dL (6.4-8.2)
[2023-07-04 21:13] LABS: Platelet Estimate ADEQ; White Blood Cell Scan OK (OK)
[2023-07-04 21:14] LABS: Blood Morphology Comment NOT SEEN (NOT SEEN)
[2023-07-04] MEDS ORDERED: ONDANSETRON 4 MG/2 ML VIAL IV PRN (21:29)
--- NOTE | 2023-07-04 21:30 | ER ---
Nurse's Notes [facility] Name: Ej Jane Age: 48 yrs Sex: Male : 1975 Arrival Date: 07/04/2023 Time: 19:28 Bed 8 Private MD: Diagnosis: Osteomyelitis of left foot;Diabetic foot wound;Sepsis Presentation: 07/04 20:12 Chief complaint: Patient states: left foot pain, swelling and discharge of the left rv foot which started 2-3 weeks ago. Coronavirus screen: At this time, the client does not indicate any symptoms associated with coronavirus-19. Ebola Screen: No symptoms or risks identified at this time. Initial Sepsis Screen: Does the patient meet any 2 criteria? No. Patient's initial sepsis screen is negative. Does the patient have a suspected source of infection? No. Patient's initial sepsis screen is negative. Risk Assessment: Do you want to hurt yourself or someone else? Patient reports no desire to harm self or others. Onset of symptoms was July 04, 2023. 20:12 Method Of Arrival: Ambulatory rv 20:12 Acuity: YOAV 2 rv Triage Assessment: 20:14 General: Appears uncomfortable, Behavior is calm, cooperative. Pain: Complains of pain rv in left foot. Neuro: Level of Consciousness is awake, alert, obeys commands, Oriented to person, place, time, situation. Cardiovascular: Capillary refill < 3 seconds Patient's skin is warm and dry. Respiratory: Airway is patent Respiratory effort is even, unlabored. GI: No signs and/or symptoms were reported involving the gastrointestinal system. : No signs and/or symptoms were reported regarding the genitourinary system. Musculoskeletal: Swelling present in left foot. Injury Description: wound on the left foot. Historical: - Allergies: 20:14 No Known Allergies; rv - PMHx: 20:14 diabetes mellitus; rv - PSHx: 20:14 LEFT 2ND TOE AMPUTATION; LEFT BIG TOE AMPUTATION; left hand surgery; right knee surgery;rv - Immunization history:: Adult Immunizations up to date. - Social history:: Smoking status: unknown. - Family history:: not pertinent. Screenin:15 [facility] ED Fall Risk Assessment (Adult) History of falling in the last 3 months, rv including since admission No falls in past 3 months (0 pts) Score/Fall Risk Level 0 - 2 = Low Risk Oriented to surroundings, Maintained a safe environment, Educated pt \T\ family on fall prevention, incl call for assistance when getting out of bed, Assessed \T\ reinforced patient's understanding of fall precautions. Abuse screen: Denies threats or abuse. Denies injuries from another. Nutritional screening: No deficits noted. Tuberculosis screening: No symptoms or risk factors identified. Assessment: 21:13 General: Appears in no apparent distress. Behavior is calm, cooperative, flat. Pain: tm6 Complains of pain in left foot Pain currently is 10 out of 10 on a pain scale. Quality of pain is described as stabbing. Neuro: Level of Consciousness is awake, alert, obeys commands, Oriented to person, place, time, situation. Cardiovascular: Capillary refill < 3 seconds Patient's skin is warm and dry. Rhythm is sinus tachycardia. Respiratory: Airway is patent Respiratory effort is even, unlabored, Respiratory pattern is regular, symmetrical. GI: Abdomen is flat, non-distended. : No signs and/or symptoms were reported regarding the genitourinary system. EENT: No signs and/or symptoms were reported regarding the EENT system. Derm: No signs and/or symptoms reported regarding the dermatologic system. Musculoskeletal: Reports pain in left foot. 22:32 Reassessment: No changes from previously documented assessment. Patient and/or family vc1 updated on plan of care and expected duration. Pain level reassessed. Patient is alert, oriented x 3, equal unlabored respirations, skin warm/dry/pink. Vital Signs: 20:12 BP 137 / 77; Pulse 136; Resp 18; Temp 102.8; Pulse Ox 98% ; Weight 90.72 kg; Height 5 rv ft. 8 in. ; 21:12 BP 154 / 88; Pulse 131; Resp 22; Pulse Ox 99% on R/A; tm6 22:32 BP 148 / 89; Pulse 129; Resp 16; Pulse Ox 98% ; vc1 22:42 Temp 99.7; vc1 20:12 Body Mass Index 30.41 (90.72 kg, 172.72 cm) rv ED Course: 19:32 Patient arrived in ED. jj6 19:57 Tao Medraon MD is Attending Physician. rt 20:14 Triage completed. rv 20:15 Arm band placed on right wrist. rv 20:33 Inserted saline lock: 20 gauge in right antecubital area, using aseptic technique. as6 Blood collected. 20:39 Foot Left 3 View XRAY In Process Unspecified. EDMS 21:13 Patient has correct armband on for positive identification. Placed in gown. Bed in low tm6 position. Call light in reach. Side rails up X2. Provided Education on: plan of care. Client placed on continuous cardiac and pulse oximetry monitoring. NIBP monitoring applied. surveillance monitor on. Door closed. Noise minimized. 21:13 No provider procedures requiring assistance completed. tm6 21:28 Sea Leal MD is Hospitalizing Provider. rt 23:44 Patient admitted, IV remains in place. vc1 Administered Medications: 20:59 Drug: NS 0.9% IV 1000 ml IV at 1 bolus Per protocol; 1000 mL bolus Route: IV; Rate: 1 rv bolus; Site: right antecubital; 20:59 Drug: Cefepime IVPB 2 grams IVPB at 200 ml/hr once over 30 mins; (mix in NS 100 mL) rv Route: IVPB; Rate: 200 ml/hr; Infused Over: 30 mins; Site: right antecubital; 22:00 Not Given (Dosage changed by Pharmacyy): vancomycin1 grams IVPB once over 2 hrs vc1 Medication: 20:15 VIS not applicable for this client. rv Outcome: 21:29 Decision to Hospitalize by Provider. rt 23:44 Admitted to Med/surg accompanied by tech, via stretcher, room 210, vc1 23:44 Condition: good 23:44 Instructed on the need for admit, 23:44 Patient left the ED. vc1 Signatures: Dispatcher [employer] EDMS Gabriel Mathews, RN RN rv Meredith Cutler jj6 Milad Roman RN RN as6 Anju Torres RN RN vc1 Tao Medrano MD MD rt Angelika Guerra RN RN tm6
--- NOTE | 2023-07-04 21:30 | EDPHYS ---
Physician Documentation [facility] Name: Ej Jane Age: 48 yrs Sex: Male : 1975 Arrival Date: 07/04/2023 Time: 19:28 Bed 8 Private MD: ED Physician Tao Medrano HPI: 07/04 21:29 This 48 yrs old Male presents to ER via Ambulatory with complaints of Leg rt Injury, Wound Infection. 21:29 Patient presents to the ED with about 2 weeks of a wound to the left foot, states it rt has worsened. Has not had any wound care or antibiotics for this. Has had prior amputations. Denies other acute complaints, symptoms are severe in severity, no other aggravating elevating factors.. Historical: - Allergies: 20:14 No Known Allergies; rv - PMHx: 20:14 diabetes mellitus; rv - PSHx: 20:14 LEFT 2ND TOE AMPUTATION; LEFT BIG TOE AMPUTATION; left hand surgery; right knee surgery;rv - Immunization history:: Adult Immunizations up to date. - Social history:: Smoking status: unknown. - Family history:: not pertinent. ROS: 21:29 Constitutional: Negative for fever, chills, and weight loss, Cardiovascular: Negative rt for chest pain, palpitations, and edema, Respiratory: Negative for shortness of breath, cough, wheezing, and pleuritic chest pain, Abdomen/GI: Negative for abdominal pain, nausea, vomiting, diarrhea, and constipation, Neuro: Negative for headache, weakness, numbness, tingling, and seizure, 21:29 MS/extremity: Positive for Wound, swelling, Exam: 21:29 Constitutional: This is a well developed, well nourished patient who is awake, alert, rt and in no acute distress. Head/Face: Normocephalic, atraumatic. Chest/axilla: Normal chest wall appearance and motion. Nontender with no deformity. No lesions are appreciated. Cardiovascular: Regular rate and rhythm with a normal S1 and S2. No gallops, murmurs, or rubs. Normal PMI, no JVD. No pulse deficits. Respiratory: Lungs have equal breath sounds bilaterally, clear to auscultation and percussion. No rales, rhonchi or wheezes noted. No increased work of breathing, no retractions or nasal flaring. Abdomen/GI: Soft, non-tender, with normal bowel sounds. No distension or tympany. No guarding or rebound. No evidence of tenderness throughout. Skin: Warm, dry with normal turgor. Normal color with no rashes, no lesions, and no evidence of cellulitis. Neuro: Awake and alert, GCS 15, oriented to person, place, time, and situation. Cranial nerves II-XII grossly intact. Motor strength 5/5 in all extremities. Sensory grossly intact. Cerebellar exam normal. Normal gait. 21:29 ECG was reviewed by the Attending Physician. 21:29 Musculoskeletal/extremity: Amputation to the left great toe, ulcerative wound at that area, moderate swelling on the foot, malodorous discharge noted. Vital Signs: 20:12 BP 137 / 77; Pulse 136; Resp 18; Temp 102.8; Pulse Ox 98% ; Weight 90.72 kg; Height 5 rv ft. 8 in. ; 21:12 BP 154 / 88; Pulse 131; Resp 22; Pulse Ox 99% on R/A; tm6 22:32 BP 148 / 89; Pulse 129; Resp 16; Pulse Ox 98% ; vc1 22:42 Temp 99.7; vc1 20:12 Body Mass Index 30.41 (90.72 kg, 172.72 cm) rv MDM: 20:17 Patient medically screened. rt 21:29 Differential diagnosis: Diabetic foot wound, osteomyelitis, sepsis. Data reviewed: rt vital signs, nurses notes, lab test result(s), EKG, radiologic studies. Consideration of Admission/Observation Patient was admitted/placed on observation. Management of patient was discussed with the following: Hospitalist: Agrees to admit. I considered the following discharge prescriptions or medication management in the emergency department Medications were administered in the Emergency Department. See MAR. Independent interpretation of the following test(s) in the Emergency Department X-Ray: My interpretation is Osteomyelitis and interpretation of x-ray images. Care significantly affected by the following chronic conditions: Diabetes. Counseling: I had a detailed discussion with the patient and/or guardian regarding the historical points, exam findings, and any diagnostic results supporting the discharge/admit diagnosis, lab results, radiology results, the need for further work-up and treatment in the hospital. 07/04 20:16 Order name: Blood Culture Adult (2) rt 07/04 20:16 Order name: CBC with Diff; Complete Time: 21:17 rt 07/04 20:16 Order name: CMP; Complete Time: 21:10 rt 07/04 20:16 Order name: Lactate w/ 2H reflex if indic.; Complete Time: 21:10 rt 07/04 20:16 Order name: Protime (+inr); Complete Time: 21:10 rt 07/04 20:16 Order name: Ptt, Activated; Complete Time: 21:10 rt 07/04 21:14 Order name: CBC Smear Scan; Complete Time: 21:17 EDMS 07/04 21:33 Order name: Basic Metabolic Panel EDMS 07/04 21:33 Order name: Basic Metabolic Panel EDMS 07/04 21:33 Order name: Basic Metabolic Panel EDMS 07/04 21:33 Order name: Basic Metabolic Panel EDMS 07/04 21:33 Order name: CBC with Automated Diff EDMS 07/04 21:33 Order name: CBC with Automated Diff EDMS 07/04 21:33 Order name: CBC with Automated Diff EDMS 07/04 21:33 Order name: CBC with Automated Diff EDMS 07/04 20:16 Order name: Foot Left 3 View XRAY; Complete Time: 20:49 rt 07/04 20:16 Order name: EKG; Complete Time: 20:17 rt 07/04 21:33 Order name: CONS Physician Consult EDMS 07/04 20:16 Order name: Accucheck; Complete Time: 21:03 rt 07/04 20:16 Order name: Cardiac monitoring; Complete Time: 21:10 rt 07/04 20:16 Order name: EKG - Nurse/Tech; Complete Time: 21:10 rt 07/04 20:16 Order name: IV Saline Lock - Large Bore; Complete Time: 20:33 rt 07/04 20:16 Order name: Labs collected and sent; Complete Time: 20:33 rt 07/04 20:16 Order name: O2 Per Protocol; Complete Time: 21:09 rt 07/04 20:16 Order name: O2 Sat Monitoring; Complete Time: 21:09 rt 07/04 20:16 Order name: Vital Signs; Complete Time: 20:33 rt EC:29 Rate is 132 beats/min. Rhythm is regular, Sinus tachycardia with No ectopy. QRS [place] is rt Normal. WA interval is normal. QRS interval is normal. QT interval is normal. No Q waves. T waves are Normal. No ST changes noted. Interpreted by me. Administered Medications: 20:59 Drug: NS 0.9% IV 1000 ml IV at 1 bolus Per protocol; 1000 mL bolus Route: IV; Rate: 1 rv bolus; Site: right antecubital; 20:59 Drug: Cefepime IVPB 2 grams IVPB at 200 ml/hr once over 30 mins; (mix in NS 100 mL) rv Route: IVPB; Rate: 200 ml/hr; Infused Over: 30 mins; Site: right antecubital; 22:00 Not Given (Dosage changed by Pharmacyy): vancomycin1 grams IVPB once over 2 hrs vc1 Disposition Summary: 07/04/23 21:29 Hospitalization Ordered Notes: Hospitalization Status: Inpatient Admission rt Provider: Sea Leal rt Location: Telemetry/MedSurg (Inpatient) rt Condition: Fair rt Problem: new rt Symptoms: are unchanged rt Bed/Room Type: Standard rt Room Assignment: 210(07/04/23 21:46) ty Diagnosis - Osteomyelitis of left foot rt - Diabetic foot wound rt - Sepsis rt Forms: - Medication Reconciliation Form rt - SBAR form rt - Leadership Thank You Letter rt Critical care time excluding procedures: 21:32 Critical care time: Bedside Care: 30 minutes, Consultation: 5 minutes. Total time: 35 rt minutes Signatures: Dispatcher [employer] Gabriel Galdamez, RN RN rv Tao Medrano MD MD rt Kali Troncoso Vanessa RN vc1 Corrections: (The following items were deleted from the chart) 21:46 21:29 rt ty
--- NOTE | 2023-07-04 21:33 | P.HP ---
Certification for Inpatient Patient admitted to: Inpatient With expected LOS: >2 Midnights Practitioner: I am a practitioner with admitting privileges, knowledge of patient current condition, hospital course, and medical plan of care. Services: Services provided to patient in accordance with Admission requirements found in Title 42 Section 412.3 of the Code of Federal Regulations Patient History Date of Service: 07/05/23 Reason for admission: Left foot infection, osteomyelitis History of Present Illness: 48-year-old male patient with medical history significant for diabetes type 2, hypertension and history of left foot infection secondary to diabetic ulcers. He comes to the ED with complaint of left foot infection which is worsened over the past couple of weeks. He described pain, fever and malaise. Imaging studies done in the ED was concerning for demineralization of bone concerning for osteomyelitis so patient was admitted for antibiotic and wound care. He denies overt episode of recent injury to the leg. Allergies No Known Drug Allergies Allergy (Unknown, Verified 07/05/23 00:39) n/a Home Medications: NK [No Home Meds] 07/05/23 - Past Medical/Surgical History Diabetic: Yes -: Diabetes mellitus types 2 -: Diabetic foot ulcer -: Toe amputation left great toe and second tip toe - Family History parents -: Heart disease, Diabetes - Social History Alcohol use: No CD- Drugs: No Caffeine use: Yes Review of Systems General: Weakness, Malaise Eyes: Unremarkable ENT: Unremarkable Respiratory: Unremarkable Cardiovascular: Unremarkable Gastrointestinal: Unremarkable Genitourinary: Unremarkable Musculoskeletal: As per HPI Integumentary: Unremarkable Neurological: Unremarkable Physical Examination - Physical Exam General: Alert, Oriented x3 HEENT: Atraumatic Neck: Supple Respiratory: Normal air movement Cardiovascular: Regular rate/rhythm, Normal S1 S2 Gastrointestinal: Soft and benign Musculoskeletal: Other (wound on left foot) Neurological: Normal speech - Studies Laboratory Data (last 24 hrs) 07/04/23 07/04/23 07/04/23 20:29 20:29 20:29 WBC 11.30 H Hgb 9.5 L Hct 27.0 L Plt Count 377 PT 13.4 H INR 1.23 APTT 27.1 Sodium 127 L Potassium 3.9 BUN 20 H Creatinine 1.04 Glucose 175 H Total Bilirubin 0.5 AST 11 L ALT 19 Alkaline Phosphatase 88 Assessment and Plan - Plan Diabetic foot infection/osteomyelitis: Patient has significant lab findings and imaging finding. Will continue patient on as needed pain control with Stem and morphine. Continue empiric antibiotic therapy of vancomycin and cefepime pending culture review. Will obtain MRI of the foot. Have ID consulted for management recommendation. Wound care also be consulted. Diabetes type 2: Continue sliding scale insulin for glucose control and carb restricted diet. We will also monitor blood sugar ACHS. Hypertension: Monitor vital signs per unit protocol and continue outpatient antihypertensive medications. Prophylaxis: Lovenox for DVT prophylaxis CODE STATUS: Full code Disposition: We will treat his multiple medical issues and he will be discharged once plan of care is finalized for his osteomyelitis episode. - Advance Directives Does patient have a Living Will: No Does patient have a Durable POA for Healthcare: No
[2023-07-04] MEDS: VANCOMYCIN 1.75 GM in NA CHLORIDE 0.9% 500 ML IVPB ONE (22:00)
[2023-07-04] MEDS ORDERED: NA CHLORIDE 0.9% 500 ML ONE (22:20)
[2023-07-05] MEDS: ACETAMINOPHEN 325 MG TABLET PO PRN (00:06)
[2023-07-05] MEDS: NA CHLORIDE 0.9% 1,000 ML IV SCH (00:07)
[2023-07-05 03:46] LABS: Absolute Eosinophils 0.1 K/uL (0-0.5); Absolute Lymphocytes (CBC) 0.6 K/uL (0.7-4.9); Absolute Monocytes 0.6 K/uL (0.1-1.3); Absolute Neutrophil 7.6 K/uL (1.8-8.0); Basophils % 0.5 % (0-1.3); Eosinophils % 1.2 % (0-4.4); Hematocrit 22.7 % (39.6-49.0); Lymphocytes % 7.2 % (15.3-44.8); MCH 29.3 pg (27.0-35.0); MCHC 35.3 g/dL (32.0-36.0); MCV 82.9 fL (80-100); MPV 6.4 fL (7.6-11.3); Monocytes % 6.2 % (3.3-12.3); Neutrophils % 84.9 % (41.7-73.7); Platelets 298 thou/uL (152-406); RBC Red Blood Cell Count 2.74 M/uL (4.33-5.43)
[2023-07-05 04:07] LABS: Anion Gap 7.6 mEq/L (5.0-15.0); Potassium 3.6 mEq/L (3.5-5.1)
[2023-07-05 05:09] VITALS: BMI 30.4
[2023-07-05 07:32] LABS: Specific Gravity 1.012 (1.005-1.030); Sqamous Epithelial None Seen /HPF (None Seen); Transitional Epithelial <5 /HPF (None Seen); Urine Bacteria None Seen /HPF (<20); Urine Bilirubin NEGATIVE (Negative); Urine Blood Negative (Negative); Urine Clarity Clear (Clear); Urine Color Yellow (Yellow); Urine Culture Reflex Order NOT NEEDED; Urine Glucose NEGATIVE (Negative); Urine Ketones NEGATIVE (Negative); Urine Microscopic Reflex YN ORDER UMIC; Urine Nitrite NEGATIVE (Negative); Urine Protein 1+ (Negative); Urine RBC <5 /HPF (None Seen); Urine Urobilinogen 1+ (Normal); Urine WBC <5 /HPF (<5); Urine pH 6.5 (5.0-7.0)
[2023-07-05] MEDS: VANCOMYCIN 1.75 GM in NA CHLORIDE 0.9% 500 ML IVPB SCH (08:30)
[2023-07-05] MEDS: INSULIN GLARGINE 100 UNIT/ML SQ SCH (08:31)
[2023-07-05] MEDS: INSULIN REGULAR (HUMAN) 100 UNIT/ML SQ SCH (08:32)
[2023-07-05] MEDS: ENOXAPARIN 40 MG/0.4 ML SQ SCH (08:53)
[2023-07-05] MEDS ORDERED: VANCOMYCIN 1.5 GM in NA CHLORIDE 0.9% 500 ML IVPB SCH (09:00)
[2023-07-05] MEDS: CEFEPIME 1 GM in NA CHLORIDE 0.9% 100 ML IV SCH (10:26)
--- NOTE | 2023-07-05 12:38 | P.CNS ---
Date of Consult: 07/05/23 Reason for Consult: left foot infection, osteomyelitis Chief Complaint: Left foot infection, osteomyelitis History of Present Illness: "48-year-old male patient with medical history significant for diabetes type 2, hypertension and history of left foot infection secondary to diabetic ulcers. He comes to the ED with complaint of left foot infection which is worsened over the past couple of weeks. He described pain, fever and malaise. Imaging studies done in the ED was concerning for demineralization of bone concerning for osteomyelitis so patient was admitted for antibiotic and wound care. " Allergies No Known Drug Allergies Allergy (Unknown, Verified 07/05/23 00:39) n/a Home medications list reviewed: Yes Home Medications: NK [No Home Meds] 07/05/23 - Past Medical/Surgical History Diabetic: Yes -: Diabetes mellitus types 2 -: Diabetic foot ulcer -: Toe amputation left great toe and second tip toe - Family History parents Medical History: Heart disease, Diabetes - Social History Smoking Status: Unknown if ever smoked Alcohol use: No CD- Drugs: No Caffeine use: Yes Place of Residence: [facility] Review of Systems 10-point ROS is otherwise unremarkable Integumentary: As per HPI Physical Examination Temp Pulse Resp BP Pulse Ox 97.4 F 99 H 20 109/50 L 98 07/05/23 04:00 07/05/23 04:00 07/05/23 04:00 07/05/23 04:00 07/05/23 04:00 General: In no apparent distress, Oriented x3, Obese HEENT: Atraumatic, Normocephalic Respiratory: Clear to auscultation bilaterally, Normal air movement Cardiovascular: Regular rate/rhythm, Edema Gastrointestinal: Normal bowel sounds, Soft and benign Integumentary: Tenderness/swelling (left foot), Diabetic ulcer (left foot) Laboratory Data - Reviewed Microbiology Data - Reviewed Imagings Data: - Reviewed Conclusions/Impression: Problem List Diabetic Foot Infection Diabetes Mellitus type II Hypertension Diabetic Foot Infection of left foot Concern for Osteomyelitis - XR left foot: " Demineralization of the distal aspect of the first metatarsal head present. This is compatible with osteomyelitis. The surrounding soft tissues are markedly swollen. Previous first and second toe amputation noted. Irregular bony remodeling and destructive changes third metatarsal proximal third phalanx. MRI followup may be of value." - venous study lower extremities: pending - Leukocytosis improved 11.3 -> 8.9 - 24 hour Tmax = 102.8 F - Currently on Cefepime and Vancomycin Recommendations - Continue Cefepime and Vancomycin for now - left foot wound culture ordered, follow up with results - pending MRI left foot to eval for osteomyelitis - Monitor WBC and fever trends - Wound care per wound care team - Keep left leg elevated Case discussed with Marky Pierre
--- NOTE | 2023-07-05 12:47 | RAD REPORT ---
EXAM DESCRIPTION: USExtremity Venous Uni Ltd07/05/2023 11:58 am CLINICAL HISTORY: left leg pain COMPARISON: None FINDINGS: Left common femoral, superficial femoral, greater saphenous, popliteal and posterior tibi al veins are compressible and demonstrate augmentation. Doppler demonstrates good flow. Grayscale, color and spectral analysis performed on all vessels 5.6 x 2.1 x 3.3 centimeter left inguinal lymph node IMPRESSION: No evidence of deep venous thrombosis involving the left lower extremity. 5.6 x 2.1 x 3.3 centimeter left inguinal lymph node is nonspecific. Followup ultrasound in 4 weeks re commended to assess stability/resolution
--- NOTE | 2023-07-05 18:34 | P.PN ---
Subjective Date of Service: 07/07/23 Chief Complaint: Left foot infection, osteomyelitis Subjective: No new changes <Zuly Metz - Last Filed: 07/07/23 08:35> Date of Service: 07/07/23 <Justa Cabrera - Last Filed: 07/07/23 21:55> Review of Systems 10-point ROS is otherwise unremarkable General: Unremarkable Eyes: Unremarkable ENT: Unremarkable Respiratory: Unremarkable Cardiovascular: Unremarkable Gastrointestinal: Unremarkable Musculoskeletal: Unremarkable Integumentary: As per HPI Neurological: Unremarkable Lymphatics: Unremarkable <Zuly Metz - Last Filed: 07/07/23 08:35> Physical Examination - Vital Signs Temperature: 97.6 F Blood Pressure: 112/64 Pulse: 94 Respirations: 16 Pulse Ox (%): 98 - Physical Exam General: Alert, Oriented x3, Other (noncompliant) HEENT: Atraumatic, Normocephalic Neck: Supple Respiratory: Clear to auscultation bilaterally Cardiovascular: Other (left leg with lymphedema like swelling, pt states it has been that way) Capillary refill: <2 Seconds Gastrointestinal: Soft and benign Musculoskeletal: Other (left foot with previous great and second toe amputation, bloody, malodorous circular wound present to dorsal metatarsal) Integumentary: Other (as noted above) Neurological: Normal speech Lymphatics: No axilla or inguinal lymphadenopathy External genitalia: Deferred Rectal: Deferred - Studies Laboratory Data (last 24 hrs) 07/04/23 07/04/23 07/04/23 20:29 20:29 20:29 WBC 11.30 H Hgb 9.5 L Hct 27.0 L Plt Count 377 PT 13.4 H INR 1.23 APTT 27.1 Sodium 127 L Potassium 3.9 BUN 20 H Creatinine 1.04 Glucose 175 H Total Bilirubin 0.5 AST 11 L ALT 19 Alkaline Phosphatase 88 <Zuly Metz - Last Filed: 07/07/23 08:35> Assessment And Plan - Plan - Plan Diabetic foot infection/osteomyelitis: Patient has significant lab findings and imaging finding. Will continue patient on as needed pain control with Hugo and morphine. Continue empiric antibiotic therapy of vancomycin and cefepime pending culture review. Will obtain MRI of the foot. Have ID consulted for management recommendation. Wound care also be consulted. DR. Rojo consulted, pt kept NPO for debridement, Dr. Rojo went to bedside and pt had eaten from "[facility]" Diabetes type 2: Continue sliding scale insulin for glucose control and carb restricted diet. We will also monitor blood sugar ACHS. Hypertension: Monitor vital signs per unit protocol and continue outpatient antihypertensive medications. Noncompliance: SW consult - they set up antibiotic therapy at last admit and pt did not show up Prophylaxis: Lovenox for DVT prophylaxis CODE STATUS: Full code Disposition: We will treat his multiple medical issues and he will be discharged once plan of care is finalized for his osteomyelitis episode. <Zuly Metz - Last Filed: 07/07/23 08:35> - Plan Pt seen and examined. I agree with the note by the SOLAR SYSTEMS DESIGNER. Continue iv abx. Waiting for Gen surgery to do I&D. <Justa Cabrera - Last Filed: 07/07/23 21:55>
--- NOTE | 2023-07-05 20:55 | CON ---
Date of Consultation: 07/05/2023 Diagnosis: Left foot diabetic ulcers. Assessment: This is a 48-year-old patient with multiple medical problems. He has history of diabete s for a long time. He takes his medications whenever he can. Comes to us with fever, malaise, pain and a surgical consult was obtained for evaluation of his foot. He has been seen apparently in the p ast by other surgeons. He was advised the importance of his diabetes control and wound care, but he is not doing any wound care in his feet right now. Allergies: NONE. Medical Problems: Diabetes, diabetic foot ulcers, multiple amputations in the past of toes. Family History: Diabetes. Social History: He does not drink alcohol. He does not smoke. Review of Systems: As per HPI. Physical Examination: Vital Signs: Reviewed. General: The patient is awake, alert. HEENT: Pupils anicteric. Abdomen: Soft and depressible. Extremities: Good capillary refill. Dorsalis pedis pulses still present, although diminished on the left side. Skin: There are multiple ulcers present, diabetic ulcer. He needs some dressing changes and does no t seem to be cleaned properly, and with some devitalized tissue present. Laboratory Data: Blood work shows WBC count of 11.3 with hemoglobin of 9.5. Foot x-ray shows demine ralization of distal aspect of the first metatarsal head compatible with osteomyelitis, swelling of s urrounding tissues. Assessment: 48-year-old patient, we offered him cleaning of those diabetic ulcers in the form of sheryl ridement. We put him n.p.o. We had him in the OR schedule to minimize discomfort, and he says that he got hungry and went down and got a sandwich and chips. He understands the importance of being com pliant and the risks that are surgery. He does not seem to be upset about it, so we might have to do this at bedside, clean the wound daily. We once again gave him the instructions and how to be compliant, how to take care of this, the importance of diabetes control, offloading, diabetic s hoes, keeping the area clean, and the importance of [facility] tpatient. The benefits, alternatives, and risks fully explained of debridement which include, but no t limited to, infection, bleeding, damage to adjacent structures, anesthesia complication, SC, and ev en . HM/MODL Voice ID: [id number] Report ID: [id number]
[2023-07-06 03:20] LABS: Absolute Eosinophils 0.2 K/uL (0-0.5); Absolute Lymphocytes (CBC) 0.9 K/uL (0.7-4.9); Absolute Monocytes 0.6 K/uL (0.1-1.3); Absolute Neutrophil 3.1 K/uL (1.8-8.0); Basophils % 0.8 % (0-1.3); Eosinophils % 4.9 % (0-4.4); Hematocrit 23.9 % (39.6-49.0); Hemoglobin 8.4 g/dL (13.6-17.9); Lymphocytes % 18.9 % (15.3-44.8); MCH 29.2 pg (27.0-35.0); MCHC 35.1 g/dL (32.0-36.0); MCV 83.2 fL (80-100); MPV 6.3 fL (7.6-11.3); Monocytes % 13.1 % (3.3-12.3); Neutrophils % 62.3 % (41.7-73.7); Platelets 325 thou/uL (152-406); RBC Red Blood Cell Count 2.87 M/uL (4.33-5.43); Red Cell Distribution Width 13.3 % (12.1-15.2)
[2023-07-06 03:46] LABS: Anion Gap 4.8 mEq/L (5.0-15.0); Potassium 3.8 mEq/L (3.5-5.1)
--- NOTE | 2023-07-06 09:01 | P.PN ---
Date of Service: 07/06/23 Subjective Date of Service: 07/06/23 Chief Complaint: Left foot infection, osteomyelitis Subjective: No new changes Review of Systems 10-point ROS is otherwise unremarkable General: Unremarkable Eyes: Unremarkable ENT: Unremarkable Respiratory: Unremarkable Cardiovascular: Unremarkable Gastrointestinal: Unremarkable Musculoskeletal: Unremarkable Integumentary: As per HPI Neurological: Unremarkable Lymphatics: Unremarkable Physical Examination - Vital Signs Temperature: 97.6 F Blood Pressure: 112/64 Pulse: 94 Respirations: 16 Pulse Ox (%): 98 - Physical Exam General: Alert, Oriented x3, Other (noncompliant) HEENT: Atraumatic, Normocephalic Neck: Supple Respiratory: Clear to auscultation bilaterally Cardiovascular: Other (left leg with lymphedema like swelling, pt states it has been that way) Capillary refill: <2 Seconds Gastrointestinal: Soft and benign Musculoskeletal: Other (left foot with previous great and second toe amputation, bloody, malodorous circular wound present to dorsal metatarsal) Integumentary: Other (as noted above) Neurological: Normal speech Lymphatics: No axilla or inguinal lymphadenopathy External genitalia: Deferred Rectal: Deferred Assessment And Plan - Plan Diabetic foot infection/osteomyelitis: Patient has significant lab findings and imaging finding. Will continue patient on as needed pain control with Shiro and morphine. Continue empiric antibiotic therapy of vancomycin and cefepime pending culture review. Will obtain MRI of the foot. No MRI yet, WBC trending down, no further fever Have ID consulted for management recommendation. Wound care also be consulted. DR. Rojo consulted, pt kept NPO for debridement, Dr. Rojo went to bedside and pt had eaten from "[facility]", may debride at bedside today or tomorrow Diabetes type 2: Continue sliding scale insulin for glucose control and carb restricted diet. We will also monitor blood sugar ACHS. Hypertension: Monitor vital signs per unit protocol and continue outpatient antihypertensive medications. Noncompliance: SW consult - they set up antibiotic therapy at last admit and pt did not show up Prophylaxis: Lovenox for DVT prophylaxis CODE STATUS: Full code Disposition: We will treat his multiple medical issues and he will be discharged once plan of care is finalized for his osteomyelitis episode. <Zuly Metz - Last Filed: 07/07/23 08:36> Pt seen and examined. I agree with the note by the DELIVERY ROUTE DRIVER. Will continue iv vanc and cefepime. Gen surgery will do I&D. <Justa Cabrera - Last Filed: 07/07/23 10:36>
[2023-07-06 23:59] VITALS: O2SAT 96
[2023-07-07 03:17] LABS: Absolute Eosinophils 0.2 K/uL (0-0.5); Absolute Lymphocytes (CBC) 1.1 K/uL (0.7-4.9); Absolute Monocytes 0.7 K/uL (0.1-1.3); Absolute Neutrophil 3.4 K/uL (1.8-8.0); Basophils % 0.7 % (0-1.3); Eosinophils % 4.1 % (0-4.4); Hematocrit 23.9 % (39.6-49.0); Hemoglobin 8.3 g/dL (13.6-17.9); Lymphocytes % 20.7 % (15.3-44.8); MCH 29.1 pg (27.0-35.0); MCHC 34.8 g/dL (32.0-36.0); MCV 83.5 fL (80-100); MPV 6.8 fL (7.6-11.3); Monocytes % 11.9 % (3.3-12.3); Neutrophils % 62.6 % (41.7-73.7); Platelets 285 thou/uL (152-406); RBC Red Blood Cell Count 2.86 M/uL (4.33-5.43); Red Cell Distribution Width 13.1 % (12.1-15.2)
[2023-07-07 03:34] LABS: Anion Gap 5.7 mEq/L (5.0-15.0); Potassium 3.7 mEq/L (3.5-5.1)
--- NOTE | 2023-07-07 07:56 | P.PN ---
Date of Service: 07/07/23 Subjective Date of Service: 07/07/23 Chief Complaint: Left foot infection, osteomyelitis Subjective: No new changes Review of Systems 10-point ROS is otherwise unremarkable General: Unremarkable Eyes: Unremarkable ENT: Unremarkable Respiratory: Unremarkable Cardiovascular: Unremarkable Gastrointestinal: Unremarkable Musculoskeletal: Unremarkable Integumentary: As per HPI Neurological: Unremarkable Lymphatics: Unremarkable Physical Examination - Vital Signs Temperature: 97.6 F Blood Pressure: 112/64 Pulse: 94 Respirations: 16 Pulse Ox (%): 98 - Physical Exam General: Alert, Oriented x3, Other (noncompliant) HEENT: Atraumatic, Normocephalic Neck: Supple Respiratory: Clear to auscultation bilaterally Cardiovascular: Other (left leg with lymphedema like swelling, pt states it has been that way) Capillary refill: <2 Seconds Gastrointestinal: Soft and benign Musculoskeletal: Other (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 Will continue patient on as needed pain control with [place] and morphine. Continue empiric antibiotic therapy of vancomycin and cefepime pending culture review. Will obtain MRI of the foot. No MRI yet, WBC trending down, no further fever Have ID consulted for management recommendation. Wound care also be consulted. DR. Rojo consulted, pt kept NPO for debridement, Dr. Rojo went to bedside and pt had eaten from "[facility]", may debride at bedside today or tomorrow. Will keep pt NPO today in case he allows Dr. Rojo to treat diabetic foot in need of debridement Wound culture + Proteus mirabilis sensitive to Levaquin. Will switch to po abx today to continue on discharge. Diabetes type 2: Continue sliding scale insulin for glucose control and carb restricted diet. We will also monitor blood sugar ACHS. Blood glucose readings well controlled Hypertension: Monitor vital signs per unit protocol and continue outpatient antihypertensive medications. Noncompliance: SW consult - they set up antibiotic therapy at last admit and pt did not show up. PO antibiotic therapy may be more realistic for this patient to actually complete. Prophylaxis: Lovenox for DVT prophylaxis CODE STATUS: Full code Disposition: We will treat his multiple medical issues and he will be discharged once plan of care is finalized for his osteomyelitis episode. <Zuly Metz - Last Filed: 07/07/23 08:02> Pt seen and examined. I agree with the note by the SUPERVISOR TELEVISION CHASSIS REPAIR. Wound cx is growing proteus mirabilis. Will change abx to levaquin. Waiting for Gen surgery to do I&D. <Justa Cabrera - Last Filed: 07/07/23 10:40>
[2023-07-07 08:47] VITALS: TEMP 97.6
[2023-07-07] MEDS: levoFLOXacin 500 MG TAB PO SCH (09:22)
[2023-07-07] MEDS: HYDROCODONE/APAP 5/325 MG TAB PO PRN (10:10)
[2023-07-07 12:45] VITALS: BP 124/73
--- NOTE | 2023-07-07 13:03 | P.DS ---
Admission Date: 07/04/23 Discharge Date: 07/07/23 Disposition: AMA-LEFT AGAINST MEDICAL ADVIC Discharge Condition: FAIR Reason for Admission: Left foot infection, osteomyelitis Brief History of Present Illness: 48-year-old male patient with medical history significant for diabetes type 2, hypertension and history of left foot infection secondary to diabetic ulcers. He comes to the ED with complaint of left foot infection which is worsened over the past couple of weeks. He described pain, fever and malaise. Imaging studies done in the ED was concerning for demineralization of bone concerning for osteomyelitis so patient was admitted for antibiotic and wound care. He denies overt episode of recent injury to the leg. Hospital Course: Pt is a 48yo male with past medical history significant for diabetes type 2, hypertension and left foot infection secondary to diabetic ulcers who presented with left foot infection. Pt is homeless and he noticed worsening of the left foot infection. It was associated with pain, fever and malaise. Imaging studies showed demineralization of bone concerning for osteomyelitis. We admitted pt and started iv vanc and cefepime. Gen surgeon could not take pt to the OR on 06/25/23 because he ate breakfast. Gen surgeon planned to do I&D at bedside but pt left AMA on 07/07/23. Vital Signs/Physical Exam: Temp Pulse Resp BP Pulse Ox 97.6 F 88 18 124/73 100 07/07/23 12:00 07/07/23 12:00 07/07/23 12:00 07/07/23 12:00 07/07/23 12:00 Laboratory Data at Discharge: WBC 5.50 thou/uL (4.3-10.9) 07/07/23 02:29 Hgb 8.3 g/dL (13.6-17.9) L 07/07/23 02:29 Hct 23.9 % (39.6-49.0) L 07/07/23 02:29 Plt Count 285 thou/uL (152-406) 07/07/23 02:29 PT 13.4 SECONDS (9.5-12.5) H 07/04/23 20:29 INR 1.23 07/04/23 20:29 APTT 27.1 SECONDS (24.3-36.9) 07/04/23 20:29 Sodium 137 mEq/L (136-145) 07/07/23 02:29 Potassium 3.7 mEq/L (3.5-5.1) 07/07/23 02:29 BUN 13 mg/dL (7-18) 07/07/23 02:29 Creatinine 0.69 mg/dL (0.70-1.30) L 07/07/23 02:29 Glucose 170 mg/dL (74-106) H 07/07/23 02:29 Total Bilirubin 0.5 mg/dL (0.2-1.0) 07/04/23 20:29 AST 11 U/L (15-37) L 07/04/23 20:29 ALT 19 U/L (16-61) 07/04/23 20:29 Alkaline Phosphatase 88 U/L (45-117) 07/04/23 20:29 Home Medications: NK [No Home Meds] 07/05/23 Followup: NONE,NONE [Primary Care Provider] -
--- NOTE | 2023-07-08 11:06 | EKG ---
Test Date: 2023-07-04 Test Time: 21:03:25 Office Manager Executive Assistant: VIRAL MEASUREMENT RESULTS: Intervals: Rate: 132 MI: 142 QRSD: 80 QT: 290 QTc: 429 [place]: P: 76 MI: 142 QRS: 75 T: 61 INTERPRETIVE STATEMENTS: Sinus tachycardia Otherwise normal ECG Compared to ECG 02/01/2021 15:32:37 Sinus rhythm no longer present Electronically Signed On 07-08-23 11:00:18 COMPO CONVEYOR OPERATOR by Timothy Candelaria
== END 2023-07-07 12:58 | disposition left against medical advice (07) | DRG 872 ==
LOC: ER 19:28 → ERHOLD 21:29 → 2ND 22:37
PROVIDERS: ADMIT Internal Medicine Nephrology; ATTEND Hospitalist
DX: A41.59 Other Gram-negative sepsis (principal); M86.8X7 Other osteomyelitis, ankle and foot; Z59.00 Homelessness unspecified; E11.69 Type 2 diabetes mellitus with other specified complication; I10 Essential (primary) hypertension; M81.0 Age-related osteoporosis without current pathological fracture; Z53.29 Procedure and treatment not carried out because of patient's decision for other reasons; Z89.422 Acquired absence of other left toe(s); Z89.412 Acquired absence of left great toe; Z79.899 Other long term (current) drug therapy; Z91.148 Patient's other noncompliance with medication regimen for other reason
CPT/HCPCS: 36415; 80048; 80053; 80202; 81001; 82947; 83605; 85025; 85610; 85730; 87040; 87070; 87077; 87186; 87205; 93005; 93971; 96374; 99285; J0692; J1650; J1815; J7030; J7040; J7050

== ENCOUNTER 2023-07-13 01:34 | Inpatient (IN) | payer SELFPAY ==
[2023-07-13 04:09] LABS: Absolute Lymphocytes (CBC) 1.4 K/uL (0.7-4.9); Hematocrit 25.2 % (39.6-49.0); Lymphocytes % 15.3 % (15.3-44.8); MCV 84.2 fL (80-100); MPV 6.6 fL (7.6-11.3); Platelets 351 thou/uL (152-406); RBC Red Blood Cell Count 2.99 M/uL (4.33-5.43)
[2023-07-13 04:20] LABS: Protime INR 1.12
[2023-07-13 04:27] LABS: Albumin 2.3 g/dL (3.4-5.0); Bilirubin Total 0.4 mg/dL (0.2-1.0); C-Reactive Protein 72.3 mg/L (<3.00); Potassium 3.7 mEq/L (3.5-5.1); Protein, Total 8.3 g/dL (6.4-8.2)
[2023-07-13] MEDS ORDERED: MORPHINE 4 MG/ML SYR ONE (04:53)
--- NOTE | 2023-07-13 05:03 | ER ---
Nurse's Notes [facility] Name: Ej Jane Age: 48 yrs Sex: Male : 1975 Arrival Date: 07/13/2023 Time: 01:34 Bed 2 Private MD: Diagnosis: Other osteomyelitis, other site-left foot Presentation: 07/13 02:28 Chief complaint: Patient states: Pt was admitted last week and was supposed to have vc1 surgery but ended up leaving AMA. Coronavirus screen: Client denies travel out of the [place] in the last 14 days. At this time, the client does not indicate any symptoms associated with coronavirus-19. Ebola Screen: Patient negative for fever greater than or equal to 101.5 degrees Fahrenheit, and additional compatible Ebola Virus Disease symptoms Patient denies exposure to infectious person. Patient denies travel to an Ebola-affected area in the 21 days before illness onset. No symptoms or risks identified at this time. Initial Sepsis Screen: Does the patient meet any 2 criteria? HR > 90 bpm. No. Patient's initial sepsis screen is negative. Does the patient have a suspected source of infection? Yes: Skin breakdown/wound. Risk Assessment: Do you want to hurt yourself or someone else? Patient reports no desire to harm self or others. Onset of symptoms was July 13, 2023. 02:28 Method Of Arrival: Ambulatory vc1 02:28 Acuity: YOAV 3 vc1 Historical: - PMHx: 02:32 diabetes mellitus; vc1 - PSHx: 02:32 LEFT 2ND TOE AMPUTATION; LEFT BIG TOE AMPUTATION; left hand surgery; right knee surgery;vc1 - Immunization history:: Client reports having NOT received the Covid vaccine. Flu vaccine is not up to date. - Social history:: Smoking status: Patient reports the use of cigarette tobacco products, smokes one pack cigarettes per day. Screenin:28 [facility] ED Fall Risk Assessment (Adult) History of falling in the last 3 months, tm6 including since admission No falls in past 3 months (0 pts). [facility] ED Fall Risk Assessment (Adult) Confusion or Disorientation No (0 pts) Intoxicated or Sedated No (0 pts) Impaired Gait Yes (1 pt) Mobility Assist Device Used No (0 pt) Altered Elimination No (0 pt) Score/Fall Risk Level 0 - 2 = Low Risk Oriented to surroundings, Maintained a safe environment. Abuse screen: Denies threats or abuse. Denies injuries from another. Nutritional screening: No deficits noted. Tuberculosis screening: No symptoms or risk factors identified. Assessment: 04:28 General: Appears in no apparent distress. Behavior is calm, cooperative. Pain: tm6 Complains of pain in left foot Pain currently is 10 out of 10 on a pain scale. Neuro: Level of Consciousness is awake, alert, obeys commands, Oriented to person, place, time, situation. Cardiovascular: Capillary refill < 3 seconds Patient's skin is warm and dry. Rhythm is sinus rhythm. Respiratory: Airway is patent Respiratory effort is even, unlabored, Respiratory pattern is regular, symmetrical. GI: Abdomen is flat, non-distended, Abd is soft and non tender X 4 quads. : No signs and/or symptoms were reported regarding the genitourinary system. EENT: No signs and/or symptoms were reported regarding the EENT system. Derm: Wound noted left foot Wound is diabetic foot ulcer, red and black, tunneling present. Musculoskeletal: No signs and/or symptoms reported regarding the musculoskeletal system. Vital Signs: 02:28 BP 110 / 70; Pulse 101; Resp 16; Temp 98.8; Pulse Ox 100% ; Weight 68.04 kg; Pain 0/10; vc1 04:28 BP 137 / 77; Pulse 99; Resp 21; Pulse Ox 100% on R/A; tm6 04:28 Pain 10/10; tm6 02:28 Pain Scale: Adult vc1 04:28 Pain Scale: Adult tm6 ED Course: 02:00 Patient arrived in ED. gm2 02:04 Demetrio Garcia PA is PHCP. cp 02:04 Demetrio Arenas MD is Attending Physician. cp 02:32 Triage completed. vc1 02:32 Arm band placed on left wrist. vc1 03:54 Inserted saline lock: 20 gauge in right antecubital area, using aseptic technique. rv1 Blood collected. 03:54 CBC with Diff Sent. rv1 03:54 CMP Sent. rv1 03:55 Protime (+inr) Sent. rv1 03:55 Ptt, Activated Sent. rv1 04:11 XRAY Foot LEFT 3 View In Process Unspecified. EDMS 04:25 Blood Culture Adult (2) Sent. rv1 04:25 CMP Sent. rv1 04:25 Lactate w/ 2H reflex if indic. Sent. rv1 04:28 Patient has correct armband on for positive identification. Bed in low position. Call tm6 light in reach. Side rails up X2. Provided Education on: plan of care. Client placed on continuous cardiac and pulse oximetry monitoring. NIBP monitoring applied. monitoring manager on. Door closed. Noise minimized. Warm blanket given. 05:00 Louis Romo MD is Hospitalizing Provider. cp 06:48 No provider procedures requiring assistance completed. Patient admitted, IV remains in tm6 place. Administered Medications: 05:08 Drug: morphine IVP or IV 4 mg IVP once over 4 mins Route: IVP; Infused Over: 4 mins; tm6 Site: right antecubital; Medication: 04:28 VIS not applicable for this client. tm6 Outcome: 05:03 Decision to Hospitalize by Provider. cp 06:48 Admitted to ER Hold. Please see [facility] for further documentation. tm6 06:48 Condition: stable 06:48 Instructed on the need for admit, 13:35 Patient left the ED. aa5 Signatures: Dispatcher [employer] EDMS Ericka Torres, RN RN aa5 Demetrio Garcia, PA PA cp Anju Torres, RN RN 1 Claribel Best rv1 Mónica Craig 2 Angelika Guerra RN RN tm6
--- NOTE | 2023-07-13 05:04 | EDPHYS ---
Physician Documentation [facility] Name: Ej Jane Age: 48 yrs Sex: Male : 1975 Arrival Date: 07/13/2023 Time: 01:34 Bed 2 Private MD: Demetrio Wang HPI: 07/13 02:35 This 48 yrs old Male presents to ER via Ambulatory with complaints of Foot cp Pain. 02:35 The patient presents with infection. The complaints affect the left foot. cp 02:35 Context: history of osteomyelitis. cp 02:35 Associated signs and symptoms: Pertinent positives: swelling, warmth, erythema, cp Pertinent negatives fever. Historical: - PMHx: 02:32 diabetes mellitus; vc1 - PSHx: 02:32 LEFT 2ND TOE AMPUTATION; LEFT BIG TOE AMPUTATION; left hand surgery; right knee surgery;vc1 - Immunization history:: Client reports having NOT received the Covid vaccine. Flu vaccine is not up to date. - Social history:: Smoking status: Patient reports the use of cigarette tobacco products, smokes one pack cigarettes per day. ROS: 02:40 Constitutional: Negative for body aches, chills, fever, poor PO intake, cp 02:40 Eyes: Negative for injury, pain, redness, and discharge, cp 02:40 ENT: Negative for drainage from ear(s), ear pain, sore throat, difficulty swallowing, difficulty handling secretions, 02:40 Cardiovascular: Negative for chest pain, palpitations, 02:40 Respiratory: Negative for cough, shortness of breath, wheezing, 02:40 Abdomen/GI: Negative for abdominal pain, nausea, vomiting, and diarrhea, 02:40 MS/extremity: Positive for pain, swelling, tenderness, of the left foot, cp 02:40 All other systems are negative, cp Exam: 02:45 Constitutional: The patient appears in no acute distress, alert, awake, cp non-diaphoretic, non-toxic, well developed, well nourished, uncomfortable, 02:45 Head/Face: Normocephalic, atraumatic. cp 02:45 Eyes: Periorbital structures: appear normal, Conjunctiva: normal, no exudate, no injection, Sclera: no appreciated abnormality, Lids and lashes: appear normal, bilaterally, 02:45 ENT: External ear(s): are unremarkable, Nose: is normal, Mouth: Lips: moist, Oral mucosa: pink and intact, moist, Posterior pharynx: Airway: no evidence of obstruction, patent, 02:45 Chest/axilla: Inspection: normal, 02:45 Cardiovascular: Rate: tachycardic, Rhythm: regular, 02:45 Respiratory: the patient does not display signs of respiratory distress, Respirations: normal, no use of accessory muscles, no retractions, labored breathing, is not present, Breath sounds: are clear throughout, no decreased breath sounds, no stridor, no wheezing, 02:45 Abdomen/GI: Exam negative for discomfort, distension, guarding, Inspection: abdomen appears normal, 02:45 Back: pain, is absent, ROM is normal, 02:45 Musculoskeletal/extremity: Extremities: noted in the left foot: deformity, swelling, moderate size open wound medial side of foot with purulent drainage, overlying skin macerated, Perfusion: the extremity is warm, 04:33 ECG was reviewed by the Attending Physician. cp Vital Signs: 02:28 BP 110 / 70; Pulse 101; Resp 16; Temp 98.8; Pulse Ox 100% ; Weight 68.04 kg; Pain 0/10; vc1 04:28 BP 137 / 77; Pulse 99; Resp 21; Pulse Ox 100% on R/A; tm6 04:28 Pain 10/10; tm6 02:28 Pain Scale: Adult vc1 04:28 Pain Scale: Adult tm6 MDM: 02:35 Patient medically screened. cp 05:05 Data reviewed: vital signs, nurses notes, lab test result(s), EKG, radiologic studies, cp plain films. 05:05 Differential diagnosis: cellulitis, osteomyelitis, sepsis. Consideration of cp Admission/Observation Escalation of care including admission/observation considered. Management of patient was discussed with the following: Hospitalist: DR Romo will admit after discussion. I considered the following discharge prescriptions or medication management in the emergency department Medications were administered in the Emergency Department. See MAR. Care significantly affected by the following chronic conditions: Diabetes. Counseling: I had a detailed discussion with the patient and/or guardian regarding the historical points, exam findings, and any diagnostic results supporting the discharge/admit diagnosis, lab results, radiology results, the need for further work-up and treatment in the hospital. Response to treatment: the patient's symptoms have mildly improved after treatment. 07/13 02:33 Order name: Blood Culture Adult (2) cp 07/13 02:33 Order name: CBC with Diff; Complete Time: 04:57 cp 07/13 04:58 Interpretation: Normal except: RBC 2.99; HGB 8.6; HCT 25.2; MPV 6.6. cp 07/13 02:33 Order name: CMP; Complete Time: 04:57 cp 07/13 04:58 Interpretation: Normal except: NA 133; GLUC 276; BUN 19; AST 9; CA 7.9; TP 8.3; ALB cp 2.3; GLOB 6.0; A/G 0.4. 07/13 02:33 Order name: Lactate w/ 2H reflex if indic.; Complete Time: 02:35 cp 07/13 02:33 Order name: Protime (+inr); Complete Time: 04:57 cp 07/13 02:33 Order name: Ptt, Activated; Complete Time: 04:57 cp 07/13 02:33 Order name: Urinalysis w/ reflexes; Complete Time: 02:35 cp 07/13 02:33 Order name: CRP; Complete Time: 04:57 cp 07/13 04:58 Interpretation: Abnormal: C-REACTIVE PROT 72.30. cp 07/13 02:33 Order name: Wound Culture cp 07/13 04:31 Order name: Glucose, Ancillary Testing; Complete Time: 04:57 EDMS 07/13 03:26 Order name: XRAY Foot LEFT 3 View; Complete Time: 02:35 cp 07/13 02:33 Order name: EKG; Complete Time: 02:33 cp 07/13 05:16 Order name: CONS Physician Consult EDMS 07/13 02:33 Order name: Accucheck; Complete Time: 04:25 cp 07/13 02:33 Order name: Cardiac monitoring; Complete Time: 04:28 cp 07/13 02:33 Order name: EKG - Nurse/Tech; Complete Time: 04:28 cp 07/13 02:33 Order name: IV Saline Lock - Large Bore; Complete Time: 04:28 cp 07/13 02:33 Order name: Labs collected and sent; Complete Time: 03:54 cp 07/13 02:33 Order name: O2 Per Protocol; Complete Time: 04:28 cp 07/13 02:33 Order name: O2 Sat Monitoring; Complete Time: :28 cp 07/13 02:33 Order name: Vital Signs; Complete Time: : cp EC: Rate is 98 beats/min. Rhythm is regular. PA interval is normal. QRS interval is normal. cp QT interval is normal. T waves are Inverted in lead aVR. Interpreted by me. Reviewed by me. Administered Medications: 05:08 Drug: morphine IVP or IV 4 mg IVP once over 4 mins Route: IVP; Infused Over: 4 mins; tm6 Site: right antecubital; Disposition Summary: 07/13/23 05:03 Hospitalization Ordered Notes: Hospitalization Status: Inpatient Admission cp Provider: Louis Romo cp Condition: Stable cp Problem: an ongoing problem cp Symptoms: are unchanged cp Bed/Room Type: Standard cp Location: Telemetry/MedSurg (Inpatient)(07/13/23 11:24) eb Room Assignment: [facility](07/13/23 11:24) eb Diagnosis - Other osteomyelitis, other site - left foot cp Forms: - Medication Reconciliation Form cp - SBAR form cp - Leadership Thank You Letter cp Signatures: Dispatcher [employer] EDMS Demetrio Garcia PA PA cp Garcia, Cindy, RN DANIEL cg Marce Weeks Vanessa RN RN vc1 Angelika Guerra RN RN tm6 Corrections: (The following items were deleted from the chart) 05:04 05:03 Cellulitis of left lower limb - left foot cp cp 05:46 05:03 Telemetry/MedSurg (Inpatient) cp cg 05:46 05:03 cp cg 11:24 05:46 [facility] ER HOLD cg eb 11:24 05:46 ERHOLD- cg eb
[2023-07-13 05:15] LABS: Specific Gravity 1.018 (1.005-1.030); Urine Bacteria None Seen /HPF (<20); Urine Bilirubin NEGATIVE (Negative); Urine Blood Negative (Negative); Urine Clarity Clear (Clear); Urine Color Light-Yellow (Yellow); Urine Glucose 4+ (Negative); Urine Protein 1+ (Negative); Urine RBC <5 /HPF (None Seen); Urine Urobilinogen 3+ (Normal); Urine pH 6.5 (5.0-7.0)
--- NOTE | 2023-07-13 05:19 | P.HP ---
Certification for Inpatient With expected LOS: >2 Midnights Practitioner: I am a practitioner with admitting privileges, knowledge of patient current condition, hospital course, and medical plan of care. Services: Services provided to patient in accordance with Admission requirements found in Title 42 Section 412.3 of the Code of Federal Regulations Patient History Date of Service: 07/13/23 Reason for admission: And drainage from the left foot History of Present Illness: Is 48 years of age history of diabetes admitted with pain swelling and drainage from the left foot did undergo an I&D last time and apparently left AMA again complaining of pain in the left foot with drainage Allergies No Known Drug Allergies Allergy (Unknown, Verified 07/05/23 00:39) n/a Home Medications: NK [No Home Meds] 07/05/23 - Past Medical/Surgical History Diabetic: Yes -: Diabetes mellitus types 2 -: Diabetic foot ulcer -: Toe amputation left great toe and second tip toe - Family History parents -: Heart disease, Diabetes - Social History Alcohol use: No CD- Drugs: No Caffeine use: Yes Review of Systems 10-point ROS is otherwise unremarkable Physical Examination - Physical Exam General: Alert, Oriented x3 HEENT: Atraumatic Neck: Supple Respiratory: Clear to auscultation bilaterally Cardiovascular: Regular rate/rhythm, Normal S1 S2, Edema (Left foot is swollen) Gastrointestinal: Normal bowel sounds, Soft and benign Musculoskeletal: Other (Foot has discoloration he has had some amputations before drainage) - Studies Laboratory Data (last 24 hrs) 07/13/23 07/13/23 07/13/23 03:52 03:52 03:52 WBC 9.30 Hgb 8.6 L Hct 25.2 L Plt Count 351 PT 12.3 INR 1.12 APTT 28.7 Sodium 133 L Potassium 3.7 BUN 19 H Creatinine 0.97 Glucose 276 H Total Bilirubin 0.4 AST 9 L ALT 21 Alkaline Phosphatase 77 Assessment and Plan - Problems (Diagnosis) (1) Osteomyelitis of left foot Current Visit: Yes Status: Acute Plan: Is 48 years of age admitted with pain and drainage from the left foot is a history of osteomyelitis requiring I&D last time left AMA again reviewed CRP is mildly elevated patient is mildly anemic plan to admit the patient started on meropenem vancomycin reconsult Dr. Rojo - Advance Directives Does patient have a Living Will: No Does patient have a Durable POA for Healthcare: No
[2023-07-13] MEDS ORDERED: VANCOMYCIN 1 GM in NA CHLORIDE 0.9% 250 ML IVPB SCH (06:00)
[2023-07-13 06:53] VITALS: BMI 23.5
[2023-07-13] MEDS: VANCOMYCIN 1.25 GM in NA CHLORIDE 0.9% 250 ML IVPB SCH (07:37)
[2023-07-13] MEDS ORDERED: NA CHLORIDE 0.9% 100 ML ONE (09:38)
[2023-07-13] MEDS ORDERED: Meropenem 1000 MG/VIAL IV ONE (09:38)
[2023-07-13] MEDS: Meropenem 1,000 MG in NA CHLORIDE 0.9% 100 ML IV SCH (10:00)
[2023-07-13 13:52] VITALS: O2SAT 100
[2023-07-13] MEDS ORDERED: D50W 25 GM/50 ML SYRINGE IV PRN (13:59)
[2023-07-13] MEDS ORDERED: GLUCAGON 1 MG/VIAL IM PRN (13:59)
--- NOTE | 2023-07-13 13:59 | P.PN ---
Date of Service: 07/13/23 Patient seen and examined. Noted malodorous left foot wound-on amputation stump, malodorous discharge. X-ray of the foot suggesting osteomyelitis of left 1-3 metatarsals and proximal phalanxes as well as pathological fracture of first metatarsal. General surgery consulted to evaluate for debridement versus amputation. Aggressive antibiotics-IV meropenem and vancomycin Aggressive blood sugar control. Check hemoglobin A1c Analgesics as needed.
[2023-07-13] MEDS ORDERED: HYDROCODONE/APAP 5/325 MG TAB PO PRN (14:00)
[2023-07-13] MEDS: INSULIN REGULAR (HUMAN) 100 UNIT/ML SQ SCH (16:08)
[2023-07-13 17:23] VITALS: BP 116/74; TEMP 97.9
--- NOTE | 2023-07-13 18:18 | P.DS ---
Admission Date: 07/13/23 Discharge Date: 07/13/23 Disposition: AMA-LEFT AGAINST MEDICAL ADVIC Reason for Admission: And drainage from the left foot - Problems (1) Fracture of first metatarsal bone of left foot Status: Acute (2) Diabetes with ulcer of foot Onset Date: 03/20/18 Status: Acute Qualifiers: (3) History of amputation of left great toe Status: Acute (4) Osteomyelitis of left foot Status: Acute Brief History of Present Illness: 48 years old man with a history of diabetes was admitted because of pain, swelling and drainage from a left foot wound. Patient was previously hospitalized, I&D done on the wound.he apparently left AMA. No fever on presentation, patient did not meet criteria for sepsis. X-ray done in the emergency department suggest osteomyelitis of the left first through third metatarsals and proximal phalanxes, and pathological fracture of the first metatarsal. General surgery was consulted and patient hospitalized for management. Hospital Course: Patient was admitted to the medical floor and started on aggressive IV antibiotics including IV meropenem and vancomycin. Patient was seen and evaluated by general surgery Dr. Peters who recommended amputation. He fired Dr. Peters and mentioned he would like to obtain care at [facility] and not [facility]. He later signed out AGAINST MEDICAL ADVICE. Vital Signs/Physical Exam: Temp Pulse Resp BP Pulse Ox 97.9 F 87 18 116/74 99 07/13/23 16:00 07/13/23 16:00 07/13/23 16:00 07/13/23 16:00 07/13/23 16:00 Laboratory Data at Discharge: WBC 9.30 thou/uL (4.3-10.9) 07/13/23 03:52 Hgb 8.6 g/dL (13.6-17.9) L 07/13/23 03:52 Hct 25.2 % (39.6-49.0) L 07/13/23 03:52 Plt Count 351 thou/uL (152-406) 07/13/23 03:52 PT 12.3 SECONDS (9.5-12.5) 07/13/23 03:52 INR 1.12 07/13/23 03:52 APTT 28.7 SECONDS (24.3-36.9) 07/13/23 03:52 Sodium 133 mEq/L (136-145) L 07/13/23 03:52 Potassium 3.7 mEq/L (3.5-5.1) 07/13/23 03:52 BUN 19 mg/dL (7-18) H 07/13/23 03:52 Creatinine 0.97 mg/dL (0.70-1.30) 07/13/23 03:52 Glucose 276 mg/dL (74-106) H 07/13/23 03:52 Total Bilirubin 0.4 mg/dL (0.2-1.0) 07/13/23 03:52 AST 9 U/L (15-37) L 07/13/23 03:52 ALT 21 U/L (16-61) 07/13/23 03:52 Alkaline Phosphatase 77 U/L (45-117) 07/13/23 03:52 Home Medications: NK [No Home Meds] 07/05/23 Followup: NONE,NONE [Primary Care Provider] -
--- NOTE | 2023-07-13 20:30 | RAD REPORT ---
EXAM DESCRIPTION: RAD - Foot Left 3 View - 07/13/2023 4:10 am CLINICAL HISTORY: The patient is 48 years old and is Male; PAIN TECHNIQUE: Three views of the left foot. COMPARISON: July 04, 2023 and October 27, 2022. FINDINGS: Bones/joints: Previous amputations of the great toe and second toe. There is a new pathologic fracture in the first metatarsal with lucencies suspicious of under lying osteomyelitis, compared with July 04, 2023. Erosions in the distal aspect of the second metatarsal again visualized. Multiple lucencies i n the third metatarsal with periosteal reaction and pathologic fracture in the distal third metatarsa l. The third proximal phalanx appears partially absent. No dislocation. Soft tissues: Diffuse soft tissue swelling greatest medially. External artifact from bandaging no supriya. No radiopaque foreign body. IMPRESSION: 1. Findings are again suspicious for osteomyelitis involving the first through third m etatarsals and proximal third phalanx. There is a new pathologic fracture in the first metatarsal com pared with July 04, 2023. 2. Diffuse soft tissue swelling, greatest medially. External artifact from bandaging noted. Electronically signed by: Lora Elmore MD 07/13/2023 06:12 AM INFORMATION SPECIALIST Due to temporary technical issues with the PACS/Fluency reporting system, reports are being signed by the in house radiologists without review as a courtesy to insure prompt reporting. The interpreting radiologist is fully responsible for the content of the report.
== END 2023-07-13 17:54 | disposition left against medical advice (07) | DRG 543 ==
LOC: ER 01:34 → ERHOLD 05:11 → 2ND 13:07
PROVIDERS: ADMIT Internal Medicine Sleep Medicine; ATTEND Internal Medicine
DX: M84.478A Pathological fracture, left toe(s), initial encounter for fracture (principal); M86.8X7 Other osteomyelitis, ankle and foot; E11.69 Type 2 diabetes mellitus with other specified complication; D64.9 Anemia, unspecified; F17.210 Nicotine dependence, cigarettes, uncomplicated; Z53.29 Procedure and treatment not carried out because of patient's decision for other reasons; Z89.422 Acquired absence of other left toe(s); Z89.412 Acquired absence of left great toe; Z28.310 Unvaccinated for COVID-19
CPT/HCPCS: 36415; 80053; 81001; 82947; 83605; 85025; 85610; 85730; 86140; 87040; 87070; 87077; 87186; 87205; J2185; J7050